=== PATIENT | female | born 1950 | race Caucasian/White ===

== ENCOUNTER 2016-09-27 08:16 | Outpatient (RCR) | payer MEDICARE ==
--- OUTSIDE RECORDS SUMMARY | 2016-07-02 10:24 | XMS REPORT | Continuity of Care Document ---
Author Author [facility] Organization [facility] Address Unknown Phone Unavailable Care Team Providers Care Clinical Research Coordinator Name Role Phone MINOR IBARRA DO PCP Insurance Providers Payer Name Policy Number Subscriber Name Relationship Wps Medicare [id number] Maribel Go 18 Self / Same As Patient Blue Cross Mcr Supp [id number] Maribel Go 18 Self / Same As Patient Advance Directives Directive Response Recorded Date/Time Advance Directives No 06/12/16 8:04am Health Care Power of Art Gallery Director No 06/12/16 8:04am Organ Donor No 06/12/16 8:04am Resuscitation Status Full Code 06/12/16 8:04am Chief Complaint and Reason for Visit Chief Complaint LEFT KNEE OA Reason for Visit medication allergy Problems Active Problems Medical Problem Onset Date Status Acute renal failure syndrome Unknown Acute LIMITATION OF ACTIVITIES DUE TO DISABILITY Unknown Acute Leukopenia Unknown Acute medication allergy Unknown Acute Medications Current Home Medications Medication Dose Units Route Directions Days/Qty Instructions Start Date Lisinopril/Hydrochlorothiazide 1 Each 0.5 Tab Oral Daily 06/05/16 Oxybutynin Chloride 10 Mg 10 Mg Oral Daily And Prn as needed for Bladder Control 06/05/16 Doxazosin Mesylate 8 Mg 8 Mg Oral Daily 06/05/16 Rosuvastatin Calcium 10 Mg 10 Mg Oral Daily 06/05/16 Furosemide 40 Mg 40 Mg Oral As Needed 06/05/16 Potassium Chloride 10 Meq 10 Meq Oral As Needed 06/05/16 Lactobacillus Rhamnosus Gg 1 Each 1 Each Oral Daily 06/05/16 Docusate Sodium 100 Mg 100 Mg Oral Daily 06/05/16 Fluticasone/Salmeterol 1 Each 1 Puff Inhalation As Needed 06/05/16 Pedi Mv No.79/Ferrous Fumarate 18 Mg 18 Mg Oral Daily 06/05/16 Diphenhydramine Hcl 25 Mg 25 Mg Oral Daily And Prn 06/05/16 Albuterol Sulfate 8.5 Gm 2 Puff Inhalation Four Times Daily as needed for Shortness Of Breath 06/12/16 Phenytoin Sodium Extended 100 Mg 300 Mg Oral Bedtime TAKES 3 (100 MG) CAPSULES 06/12/16 Oxycodone Hcl/Acetaminophen 1 Each 1 Each Oral Every 4HRS 50 06/16/16 Ondansetron 4 Mg 4 Mg Oral As Directed as needed for Nausea/Vomiting 0 06/16/16 Past Home Medications Medication Directions Ordered Status Etodolac 400 Mg Tab, 400 Mg Oral Twice A Day 11/07/10 Discontinued Acetaminophen/Diphenhydramine 1 Each Tablet, 2 Tab Oral Bedtime 11/07/10 Discontinued Cholecalciferol 1,000 Unit Capsule, 1000 U Oral Daily 11/07/10 Discontinued Gfihaqnh-Bboygnw-Vsps 149-Hyal 1 Each Tablet, 1 Each Oral Twice A Day Discontinued Prednisone 10 Mg Tab, 10 Mg Oral Twice A Day 11/07/10 Discontinued Rosuvastatin Calcium 10 Mg Tablet, 1 Each Oral Daily 09/12/11 Discontinued Metoprolol Tartrate (Lopressor) 25 Mg Tablet, 1 Tab Oral Twice A Day Discontinued Doxazosin Mesylate 4 Mg Tablet, 4 Mg Oral Bedtime 09/12/11 Discontinued Aspirin 81 Mg Chew, 81 Mg Oral Daily 09/12/11 Discontinued Multivit,Ther Iron,Ca,Fa & Min 1 Each Tablet, 1 Each Oral Daily 09/12/11 Discontinued Calcium Carbonate/Vitamin D3 1 Each Tablet, 1 Each Oral Twice A Day 09/12/11 Discontinued Sennosides/Docusate Sodium 1 Each Tablet, 1 Each Oral Daily 09/12/11 Discontinued Furosemide (Lasix) 40 Mg Tablet, 1 Each Oral As Needed 09/12/11 Discontinued Potassium Chloride (Micro K) 10 Meq Capsule.sa, 1 Each Oral As Needed Discontinued Prednisone 20 Mg Tab, 20 Mg Oral Twice A Day 04/25/13 Discontinued Famotidine (Pepcid) 20 Mg Tablet, 1 Each Oral Twice A Day 08/08/13 Discontinued Prednisone 20 Mg Tab, 20 Mg Oral Daily 08/08/13 Discontinued Phenytoin Sodium Extended 100 Mg Capsule, 300 Mg Oral Bedtime 06/05/16 Discontinued Albuterol Sulfate 18 Gm Hfa.aer.ad, 1-2 Puff Inhalation As Needed 06/05/16 Discontinued Oxycodone Hcl/Acetaminophen 1 Each Tablet, 1 Each Oral Every 4HRS 06/12/16 Discontinued Albuterol Sulfate 8.5 Gm Hfa.aer.ad, 2 Puff Inhalation Four Times Daily as needed for Shortness Of Breath 06/12/16 Discontinued Social History Social History Problem Response Recorded Date/Time Alcohol Use Rarely Uses 08/08/2013 9:00pm Recreational Drug Use No 08/08/2013 9:00pm Recent Foreign Travel No 08/08/2013 9:00pm Recent Infectious Disease Exposure No 08/08/2013 9:00pm Hospitalization with Isolation Denies 08/08/2013 9:00pm Sexually Transmitted Disease No 06/12/2016 8:00am HIV/AIDS No 06/12/2016 8:00am Smoking Status Former Smoker 06/12/2016 8:04am Type Used Cigarettes 06/16/2016 12:40pm Recent Hopitalizations No 06/12/2016 8:00am Sexually Transmitted Disease No 06/12/2016 8:00am Hospitalization with Isolation Denies 08/08/2013 9:00pm Query Response Start Date Stop Date Smoking Status Former Smoker Hospital Discharge Instructions No hospital discharge instructions. Plan of Care Discharge Date 06/16/16 12:25pm Disposition 06 HOME HEALTH SERVICE Instructions/Education Provided Postop Total Knee Replacement Exercises Lying Down Forms Provided Follow-Up Fax Prescriptions See Medication Section Referrals (Unspecified) - Today Reason(s) for Referral: LIMITATION OF ACTIVITIES DUE TO DISABILITY HENRIK TORRES MD (Unspecified) - Address: [address] [place] [address] [phone] Reason(s) for Referral: FOLLOW UP WITH DR TORRES IN 3 WEEKS. Functional Status Query Response Date Recorded Patient Orientation Normal For Age June 16, 2016 11:19am Patient Orientation Person Place Time Situation Eyes Open June 16, 2016 12:40pm Comprehension Ability Understands Concepts June 13, 2016 8:10am Allergies, Adverse Reactions, Alerts Allergen Type Severity Reaction Status Last Updated tolmetin sodium Allergy Unknown Active 06/05/16 naproxen sodium Allergy Mild SORES IN MOUTH AND NOSE Active 06/05/16 misoprostol ([id number]) Allergy Mild GI UPSET Active 06/05/16 hydrocodone ([id number]) Allergy Mild GI UPSET Active 06/05/16 Benzonatate Allergy Intermediate RASH Active 08/08/13 indomethacin ([id number]) Allergy Mild Active 06/05/16 sulfamethoxazole ([id number]) Allergy Severe BREATHING Active 06/05/16 Trimethoprim Allergy Severe BREATHING Active 06/05/16 diclofenac ([id number]) Allergy Mild GI UPSET Active 06/05/16 tolmetin ([id number]) Allergy Severe Active 06/05/16 phenazopyridine ([id number]) Allergy Severe GI UPSET Active 06/05/16 DARVOCET Allergy Unknown Active 06/05/16 Immunizations No immunization records. Vital Signs Acute Vital Signs Vital Response Date/Time Temperature (Fahrenheit) 98.1 degrees F (97.6 - 99.5) 06/16/2016 8:29am Temperature (Calculated Celsius) 36.03757 degrees C (36.4 - 37.5) 06/16/2016 8:29am Temperature Source Tympanic 06/16/2016 8:29am Pulse Rate (adult) 94 bpm (60 - 90) 06/16/2016 8:29am Respiratory Rate 20 bpm (12 - 24) 06/16/2016 8:29am O2 Sat by Pulse Oximetry 96 % (88 - 100) 06/16/2016 8:29am Blood Pressure 147/64 mm Hg 06/16/2016 8:29am Blood Pressure Mean 91 mm Hg 06/16/2016 8:29am Pain Numeric Pain Scale 3 06/16/2016 12:25pm Height (Feet) 5 feet 06/12/2016 7:58am Height (Inches) 1.00 inches 06/12/2016 7:58am Height (Calculated Centimeters) 154.827263 cm 06/12/2016 7:58am Weight (Pounds) 212 pounds 06/12/2016 7:58am Weight (Ounces) 5.0 oz 06/12/2016 7:58am Weight (Calculated Grams) 95354.33 gm 06/12/2016 7:58am Weight (Calculated Kilograms) 96.059401 kilograms 06/12/2016 7:58am Calculated BMI 40.1 06/12/2016 7:58am Results Laboratory Results Test Name Result Units Flags Reference Collection Date/Time Result Date/ Time Comments White Blood Count 4.1 10^3/uL L 4.3-11.0 06/16/2016 5:51am 06/16/2016 6: 04am White Blood Count 6.5 X 10^3 4.3-11.0 06/12/2016 10:20am 06/12/2016 10: 47am Red Blood Count 3.01 10^6/uL L 4.35-5.85 06/16/2016 5:51am 06/16/2016 6: 04am Hemoglobin 8.8 G/DL #L 11.5-16.0 06/16/2016 5:51am 06/16/2016 6:04am Hematocrit 26 % L 35-52 06/16/2016 5:51am 06/16/2016 6:04am Mean Corpuscular Volume 86 FL 80-99 06/16/2016 5:51am 06/16/2016 6: 04am Mean Corpuscular Hemoglobin 29 PG 25-34 06/16/2016 5:51am 06/16/2016 6: 04am Mean Corpuscular Hemoglobin Concent 34 G/DL 32-36 06/16/2016 5:51am 6:04am Red Cell Distribution Width 13.1 % 10.0-14.5 06/16/2016 5:51am 2015 6:04am Platelet Count 90 10^3/uL L 130-400 06/16/2016 5:51am 06/16/2016 6:04am Mean Platelet Volume 10.1 FL 7.4-10.4 06/16/2016 5:51am 06/16/2016 6: 04am Neutrophils (%) (Auto) 70 % 42-75 06/16/2016 5:51am 06/16/2016 6:04am Lymphocytes (%) (Auto) 15 % 12-44 06/16/2016 5:51am 06/16/2016 6:04am Monocytes (%) (Auto) 12 % 0-12 06/16/2016 5:51am 06/16/2016 6:04am Eosinophils (%) (Auto) 2 % 0-10 06/16/2016 5:51am 06/16/2016 6:04am Basophils (%) (Auto) 0 % 0-10 06/16/2016 5:51am 06/16/2016 6:04am Neutrophils # (Auto) 2.8 X 10^3 1.8-7.8 06/16/2016 5:51am 06/16/2016 6: 04am Lymphocytes # (Auto) 0.6 X 10^3 L 1.0-4.0 06/16/2016 5:51am 06/16/2016 6: 04am Monocytes # (Auto) 0.5 X 10^3 0.0-1.0 06/16/2016 5:51am 06/16/2016 6: 04am Eosinophils # (Auto) 0.1 10^3/uL 0.0-0.3 06/16/2016 5:51am 06/16/2016 6 :04am Basophils # (Auto) 0.0 10^3/uL 0.0-0.1 06/16/2016 5:51am 06/16/2016 6: 04am Urine Color YELLOW 06/14/2016 6:25pm 06/14/2016 8:40pm Urine Clarity CLEAR 06/14/2016 6:25pm 06/14/2016 8:40pm Urine pH 6 5-9 06/14/2016 6:25pm 06/14/2016 8:40pm Urine Specific [place] 1.015 * 1.016-1.022 06/14/2016 6:25pm 2015 8:40pm Urine Protein 2+ * NEGATIVE 06/14/2016 6:25pm 06/14/2016 8:40pm Urine Glucose (UA) NEGATIVE NEGATIVE 06/14/2016 6:25pm 06/14/2016 8: 40pm Urine RBC (Auto) 3+ * NEGATIVE 06/14/2016 6:25pm 06/14/2016 8:40pm Urine Ketones NEGATIVE NEGATIVE 06/14/2016 6:25pm 06/14/2016 8:40pm Urine Nitrite POSITIVE * NEGATIVE 06/14/2016 6:25pm 06/14/2016 8:40pm Urine Bilirubin NEGATIVE NEGATIVE 06/14/2016 6:25pm 06/14/2016 8: 40pm Urine Urobilinogen NORMAL MG/DL NORMAL 06/14/2016 6:25pm 06/14/2016 8: 40pm Urine Leukocyte Esterase 1+ * NEGATIVE 06/14/2016 6:25pm 06/14/2016 8: 40pm Urine RBC 0-2 /HPF 06/14/2016 6:25pm 06/14/2016 8:40pm Urine WBC 5-10 /HPF * 06/14/2016 6:25pm 06/14/2016 8:40pm Urine Bacteria FEW /HPF * 06/14/2016 6:25pm 06/14/2016 8:40pm Urine Squamous Epithelial Cells 10-25 /HPF * 06/14/2016 6:25pm 2015 8:40pm Urine Crystals NONE /LPF 06/14/2016 6:25pm 06/14/2016 8:40pm Urine Casts NONE /LPF 06/14/2016 6:25pm 06/14/2016 8:40pm Urine Mucus SMALL /LPF * 06/14/2016 6:25pm 06/14/2016 8:40pm Urine Culture Indicated YES 06/14/2016 6:25pm 06/14/2016 8:40pm Sodium Level 137 MMOL/L 135-145 06/16/2016 5:51am 06/16/2016 6:30am Potassium Level 4.0 MMOL/L 3.6-5.0 06/16/2016 5:51am 06/16/2016 6:30am Chloride Level 107 MMOL/L 98-107 06/16/2016 5:51am 06/16/2016 6:30am Carbon Dioxide Level 21 MMOL/L 21-32 06/16/2016 5:51am 06/16/2016 6: 30am Anion Gap 9 MMOL/L 5-14 06/16/2016 5:51am 06/16/2016 6:30am Blood Urea Nitrogen 14 MG/DL 7-18 06/16/2016 5:51am 06/16/2016 6:30am Creatinine 0.75 MG/DL 0.60-1.30 06/16/2016 5:51am 06/16/2016 6:30am BUN/Creatinine Ratio 19 06/16/2016 5:51am 06/16/2016 6:30am Estimat Glomerular Filtration Rate > 60 06/16/2016 5:51am 2015 6:30am GFR INTERPRETIVE DATA UNITS FOR ESTIMATED GFR (eGFR): mL/min/1.73 M2 REFERENCE RANGE FOR ESTIMATED GFR (eGFR) eGFR NORMAL eGFR >60 MODERATELY DECREASED eGFR 30-59 SEVERLY DECREASED eGFR 15-29 KIDNEY FAILURE <15 (OR DIALYSIS) Glucose Level 110 MG/DL H 70-105 06/16/2016 5:51am 06/16/2016 6:30am Calcium Level 8.3 MG/DL L 8.5-10.1 06/16/2016 5:51am 06/16/2016 6:30am Total Bilirubin 0.6 MG/DL 0.1-1.0 06/16/2016 5:51am 06/16/2016 6:30am Alkaline Phosphatase 102 U/L 40-136 06/16/2016 5:51am 06/16/2016 6: 30am Aspartate Amino Transf (AST/SGOT) 30 U/L 5-34 06/16/2016 5:51am 2015 6:30am Alanine Aminotransferase (ALT/SGPT) 15 U/L 0-55 06/16/2016 5:51am 06/16 6:30am Total Protein 5.5 G/DL L 6.4-8.2 06/16/2016 5:51am 06/16/2016 6:30am Albumin 3.2 G/DL 3.2-4.5 06/16/2016 5:51am 06/16/2016 6:30am Iron Level 50 ug/dL 35-180 06/13/2016 4:52am 06/14/2016 7:29am Test performed at [facility], CLIA# [id number] [address] [place] [address] Pending Laboratory Results Test Name Collection Date/Time Microbiology Results Procedure Source Result Collection Date/Time Result Date/Time Blood Culture Peripheral, Rt Ac No growth 06/14/2016 7:05pm 06/15/2016 2: 30pm Blood Culture Peripheral, Lt Hand No growth 06/14/2016 7:05pm 06/15/2016 2: 30pm Urine Culture Urine, Clean Catch STAPHCARLOTAG NEG (UNDERWRITER) 06/14/2016 6:25pm 7:41am Pending Microbiology Results Procedure Source Collection Date/Time Procedures Procedure Status Date Provider(s) Total replacement of knee joint Completed 06/12/16 ZAFUTA,HENRIK P MD Tracing only of electrocardiogram Completed 06/05/16 HENRIK TORRES MD Encounters Encounter Location Arrival/Admit Date Discharge/Depart Date Attending Provider Discharged Inpatient [facility] 06/12/16 5:55am 12:25pm HENRIK TORRES MD Departed Clinic [facility] 06/05/16 1:24pm 06/05/16 2: 00pm HENRIK TORRES MD Recent Diagnosis medication allergy
[~2016-09-27 08:16] MED LIST: ACET-2151 PO; ASP81CT PO; CALC-80 PO; CHOL100011 PO; CLN.1T PO; DIPH25TA49 PO; DOCU-238 PO; DOXA4TAB2 PO; DOXA8TAB73 PO; ETD400T PO; FAMO20TA5 PO; FLUT1DIS26 IH; FURO-124 PO; FURO40TA4 PO; GLUC1TAB60 PO; LACT1CAP39 PO; LISI1TAB8 PO; METO25TA2 PO; MULT-1009 PO; ONDA4TAB8 PO; OXYB10TA PO; OXYC-197 PO; PEDI18TA2 PO; PHEN100C11 PO; PHEN100C4 PO; POTA10CA43 PO; POTA10TA10 PO; PRD10T PO; PRD20T PO; ROSU10TA PO; ROSU10TA12 PO; RT-ALBUINH IH; SENN-75 PO; VALS1TAB12 PO
== END 2016-09-30 | disposition home or self-care (01) ==
PROVIDERS: ATTEND Orthopaedic Surgery
DX: Z47.1 Aftercare following joint replacement surgery (principal); Z96.652 Presence of left artificial knee joint

== ENCOUNTER 2016-10-17 05:36 | Outpatient (CLI) | payer MEDICARE ==
[~2016-10-17] VITALS: Ht 154.9 cm; Wt 96.3 kg
== END 2016-10-17 11:17 ==
LOC: PREOP 05:36
PROVIDERS: ATTEND Orthopaedic Surgery
DX: Z01.818 Encounter for other preprocedural examination (principal); M76.892 Other specified enthesopathies of left lower limb, excluding foot

== ENCOUNTER 2016-10-23 06:29 | Day surgery (SDC) | payer MEDICARE ==
--- NOTE | 2016-10-21 08:10 | HISTORY AND PHYSICAL ---
DATE OF ADMISSION: 10/23/2016 DICTATING PHYSICIAN: DR. Comer This will be for outpatient surgery for left knee manipulation under anesthesia. HISTORY: The patient is a 66-year-old female who underwent left total knee arthroplasty a little over 4 months ago. She has plateaued on her motion and reports stiffness and pain in her knee. Because of failure to improve with extensive physical therapy, the patient elected to proceed with manipulation under anesthesia. REVIEW OF SYSTEMS: No chest pain, no shortness of breath. No dysuria. PAST MEDICAL HISTORY: 1. Bronchitis. 2. Hypertension. 3. Urinary tract infection. 4. Seizure disorder. 5. B12 deficiency. 6. Anemia. 7. Left horseshoe kidney. PAST SURGERIES: 1. Hysterectomy. 2. Aortic valve. 3. Tubal ligation. 4. Total knee arthroplasty. 5. Left shoulder. 6. Left breast biopsy. 7. Left kidney stent placement. 8. Left total knee arthroplasty. FAMILY HISTORY: Significant for diabetes lupus, ischemic heart disease. PRIMARY CARE PROVIDER: Dr. Lora MEDICATIONS: 1. Stool softener. 2. Potassium. 3. Lasix. 4. Crestor. 5. Doxazosin. 6. Lisinopril. 7. Phenytoin. 8. Pro- air. 9. Advair. 10. Promethazine. 11. Hydrocodone. 12. Levaquin. 13. Tylenol. ALLERGIES: 1. Phenazopyridine 2. Benzonatate 3. Phongopyred 4. Tolectin 5. Anaprox. 6. Hydrocodone 7. Indomethacin 8. Arthrotec SOCIAL HISTORY: The patient is a former smoker. Denies alcohol use. PHYSICAL EXAMINATION: The patient's well-developed, well-nourished, in no acute distress. HEENT: Normocephalic, atraumatic. Pupils are equal, round, and reactive light, oropharynx is clear. NECK: Supple. No lymphadenopathy. LUNGS: Clear to auscultation bilaterally. HEART: Regular rate and rhythm. ABDOMEN: Soft, nontender, nondistended. EXTREMITY EXAM: The left knee demonstrates no effusion. There is no erythema or warmth. Range of motion 0/5/90. Her patella tracks well. 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 PLAN: Left knee manipulation under anesthesia. The risks, benefits, options, ramifications and recovery were discussed at length with the patient and she understands and wishes to proceed. Job ID: [id number] Dictated Date: 10/14/2016 12:13:00 Conference Services Manager Date: 10/15/2016 08:11:18/[email or web address]
[~2016-10-23] VITALS: Ht 154.9 cm; Wt 96.3 kg
[2016-10-23 07:10] VITALS: BP 138/84
[2016-10-23] MEDS ORDERED: proPOfol 200 MG/20 ML (DIPRIVAN) VIAL IV ONE ×3 (07:12→08:14)
[2016-10-23] MEDS ORDERED: SUCCINYLCHOLINE INJ 100 MG/5 ML SYR ONE (07:12)
[2016-10-23] MEDS ORDERED: fentaNYL INJECTION 100 MCG/2 ML AMP ONE (07:12)
[2016-10-23] MEDS ORDERED: MIDAZOLAM 2 MG/2 ML (VERSED) VIAL ONE (07:12)
[2016-10-23] MEDS ORDERED: LACTATED RINGERS 1,000 ML IV PRN (07:25)
--- NOTE | 2016-10-23 07:29 | Progress Note-Pre Operative ---
Pre-Operative Progress Note H&P Reviewed The H&P was reviewed, patient examined and no changes noted. Date H&P Reviewed: Oct 23, 2016 Time H&P Reviewed: 07:11 Pre-Operative Diagnosis: left knee adhesive capsulitis HENRIK TORRES MD Oct 23, 2016 07:29
[2016-10-23] MEDS ORDERED: oxyCODONE/APAP 5/325MG (PERCOCET 5) TABLET PO PRN (07:30)
--- NOTE | 2016-10-23 07:30 | Progress Note-Post Operative ---
Post-Operative Progess Note Surgeon (s)/Oyster Shucker (s) Surgeon HENRIK TORRES MD Oyster Shucker: Lorenzo Simmons Pre-Operative Diagnosis left knee adhesive capsulitis Post-Operative Diagnosis left knee adhesive capsulitis Post-Op Procedure Note Date of Procedure: Oct 23, 2016 Name of Procedure Performed: left knee manipulation under anesthesia Description of the Procedure: manipulated left knee Findings of the Procedure improved ROM Anesthesia Type GETA Estimated blood loss (mL): none Packing: none Specimen(s) collected/removed none HENRIK TORRES MD Oct 23, 2016 07:30
[2016-10-23] MEDS ORDERED: LACTATED RINGERS 1,000 ML IV ONE (08:14)
[2016-10-23] MEDS ORDERED: SEVOFLURANE (ULTANE) 15 ML INHAL SOLN ONE (08:34)
[2016-10-23] MEDS ORDERED: ONDANSETRON 4 MG/2 ML (SDV) Z0FRAN ONE (08:35)
[2016-10-23] MEDS ORDERED: fentaNYL INJECTION 100 MCG/2 ML AMP IVP PRN (08:45)
[2016-10-23] MEDS ORDERED: MEPERIDINE (DEMEROL) INJ 50 MG/ML IVP PRN (08:45)
[2016-10-23 09:30] VITALS: BP 129/77
[2016-10-23 10:00] VITALS: BP 132/74
[2016-10-23] MEDS ORDERED: OXYC-471 PO (10:02)
--- NOTE | 2016-10-24 09:56 | OPERATIVE REPORT ---
PROCEDURE PHYSICIAN: HENRIK TORRES DATE OF PROCEDURE: 10/23/2016 PREOPERATIVE DIAGNOSIS: Left knee adhesions status post total knee arthroplasty. POSTOPERATIVE DIAGNOSIS: Left knee adhesions status post total knee arthroplasty. PROCEDURE: Left knee manipulation under anesthesia. SURGEON: Souleymane ROLL UP HELPER: Lorenzo Simmons who assisted throughout the procedure. ANESTHESIA: Monitored anesthesia care by Dr. Hernandez TOURNIQUET TIME: Was not applicable. ESTIMATED BLOOD LOSS: Not applicable. DRAINS: None. COMPLICATIONS: None. POSTOPERATIVE PLAN: Early range of motion. The patient was transported to the recovery room, awake, and in stable condition. STATEMENT OF MEDICAL NECESSITY: The patient is a 66-year-old female who several months ago underwent a left total knee arthroplasty. She had plateaued in her range of motion and had failed to improve with extensive therapy and therefore, elected to proceed with manipulation. Examination under anesthesia revealed range of motion of 0/8/80 pre- manipulation. PROCEDURE: After risks and benefits of the procedure were discussed and questions were answered an informed consent was signed and placed on chart. The operative site was confirmed in the preoperative holding area and initialed by the surgeon. The patient was then transported to the operating room where after adequate levels of monitored anesthesia care was obtained, manipulation was carefully performed. The knee was brought into flexion and gently flexed until the patient had attained 120 degrees of flexion. The patient was then brought out into extension and gentle force was applied until the knee lacked approximately 2 degrees to full extension. Her final range of motion was approximately 0/2/120. Her patellar mobility was improved as well. The patient was transported to the recovery room, awake, in stable condition. Job ID: [id number] Dictated Date: 10/23/2016 08:44:32 Corn Sheller Operator Date: 10/24/2016 09:49:48 / wilma
--- OUTSIDE RECORDS SUMMARY | 2016-11-10 05:46 | XMS REPORT | Continuity of Care Document ---
Author Author [facility] Organization [facility] Address Unknown Phone Unavailable Care Team Providers Care Pipe Covering Molder Name Role Phone FREDMINOR DO PP Insurance Providers Payer Name Policy Number Subscriber Name Relationship [facility] [id number] [place] 01 Self / Same As Patient [facility] Self Insurance Fund [id number] [facility] 08 Employer Advance Directives Directive Response Recorded Date Advance Directives N 04/25/13 11:02pm Health Care Power of Nurseryperson N 09/12/11 10:13am Organ Donor N 04/25/13 11:02pm Problems No Known Problems or Medical conditions. Family History History Response Recorded Date/Time Hx Family Cancer Y maternal grandmother 11/07/10 2:04am Hx Family Cardiac Disorders N 11/07/10 2: 04am Social History History Response Recorded Date/Time Alcohol Use Rarely Uses 04/25/13 11:02pm Recreational Drug Use N 04/25/13 11:02pm Recent Foreign Travel N 04/25/13 11:02pm Recent Infectious Disease Exposure N 11:02pm Hospitalization with Isolation Denies 11:02pm Sexually Transmitted Disease N 04/25/13 11:02pm HIV/AIDS N 04/25/13 11:02pm Allergies, Adverse Reactions, Alerts Allergen Type Severity Reaction Last Updated Tolmetin Sodium Allergy 11/07/10 naproxen sodium Allergy 11/07/10 Hydrocodone Allergy 11/07/10 DARVOCET Allergy 11/07/10 Medications Medication Dose Units Route Sig Qty Days Prednisone 20 Mg PO BID 4 Potassium Chloride (Potassium Chloride 10 Meq Cap) 1 Each PO PRN 1 Furosemide 1 Each PO PRN 1 Sennosides/Docusate Sodium (Stool Softener Tablet) 1 Each PO DAILY 1 Calcium Carbonate/Vitamin D3 (Calcium 600 + D Caplet) 1 Each PO BID 1 Multivit,Ther Iron,Ca,Fa & Min (Thera M Plus Tablet) 1 Each PO DAILY 1 Aspirin (Aspirin 81 Mg Chew Tab) 81 Mg PO DAILY 1 Doxazosin Mesylate 4 Mg PO HS 1 Metoprolol Tartrate (Metoprolol Tartrate 25 Mg) 1 Tab PO BID Rosuvastatin Calcium (Crestor) 1 Each PO DAILY 1 Jphpowmr-Tmrzvnv-Iuvg 149-Hyal (Glucosamine Chondroitin Tablet) 1 Each PO BID Cholecalciferol (Vitamin D3) 1000 U PO DAILY Acetaminophen/Diphenhydramine (Tylenol Pm (Non-Formulary)) 2 Tab PO HS Etodolac (Lodine) 400 Mg PO BID Immunizations Name Given Type Date of Influenza Vaccine 04/16/11 H Response Recorded Date/Time Status not known Unknown Results No Known Relevant Diagnostic Tests, Laboratory Data and/or Discharge Summary. Encounters Encounter Location Date/Time Departed Emergency Room [facility] 10:42pm Discharged Inpatient [facility] 1:30am
--- OUTSIDE RECORDS SUMMARY | 2016-11-10 05:46 | XMS REPORT | Continuity of Care Document ---
Author Author [facility] Organization [facility] Address Unknown Phone Unavailable Allergies Active Description Code Type Severity Reaction Onset Reported/Identified Relationship to Patient Clinical Status Yes hydrocodone [id number] Drug Allergy Unknown N/A 11/07/2010 Yes naproxen sodium [id number] Drug Allergy Unknown N/A 11/07/2010 Yes benzonatate [id number] Drug Allergy Moderate RASH 08/08/2013 Yes phenazopyridine [id number] Drug Allergy Severe GI UPSET 06/05/2016 Yes sulfamethoxazole [id number] Drug Allergy Severe BREATHING 06/05/2016 Yes tolmetin [id number] Drug Allergy Severe N/A 06/05/2016 Yes trimethoprim [id number] Drug Allergy Severe BREATHING 06/05/2016 Yes diclofenac [id number] Drug Allergy Mild GI UPSET 06/05/2016 Yes hydrocodone [id number] Drug Allergy Mild GI UPSET 06/05/2016 Yes indomethacin [id number] Drug Allergy Mild N/A 06/05/2016 Yes misoprostol [id number] Drug Allergy Mild GI UPSET 06/05/2016 Yes naproxen sodium [id number] Drug Allergy Mild SORES IN MOUTH 06/05/2016 Yes DARVOCET DARVOCET Unknown N/A 06/05/2016 Yes tolmetin sodium [id number] Drug Allergy Unknown N/A 06/05/2016 Medications Problems Date Dx Coded Attending Type Code Diagnosis Diagnosed By 06/05/2016 HENRIK TORRES MD Ot Z01.812 ENCOUNTER FOR PREPROCEDURAL LABORATORY E 06/05/2016 HENRIK TORRES MD, Ot Z01.812 ENCOUNTER FOR PREPROCEDURAL LABORATORY E 06/05/2016 HENIRK TORRES MD, Ot M17.9 OSTEOARTHRITIS OF KNEE, UNSPECIFIED 06/05/2016 HENRIK TORRES MD Ot R53.83 OTHER FATIGUE 06/05/2016 HENRIK TORRES MD, Ot Z01.810 ENCOUNTER FOR PREPROCEDURAL CARDIOVASCUL 06/05/2016 HENRIK TORRES MD Ot Z01.811 ENCOUNTER FOR PREPROCEDURAL RESPIRATORY 06/05/2016 HENRIK TORRES MD Ot Z01.812 ENCOUNTER FOR PREPROCEDURAL LABORATORY E 06/05/2016 HENRIK TORRES MD Ot Z11.2 ENCOUNTER FOR SCREENING FOR OTHER BACTER 06/06/2016 HENRIK TORRES MD Ot M17.9 OSTEOARTHRITIS OF KNEE, UNSPECIFIED 06/06/2016 HENRIK TORRES MD Ot R53.83 OTHER FATIGUE 06/06/2016 HENRIK TORRES MD Ot Z01.810 ENCOUNTER FOR PREPROCEDURAL CARDIOVASCUL 06/06/2016 HENRIK TORRES MD Ot Z01.811 ENCOUNTER FOR PREPROCEDURAL RESPIRATORY 06/06/2016 HENRIK TORRES MD Ot Z01.812 ENCOUNTER FOR PREPROCEDURAL LABORATORY E 06/06/2016 HENRIK TORRES MD Ot Z11.2 ENCOUNTER FOR SCREENING FOR OTHER BACTER 06/16/2016 HENRIK TORRES MD Ot D62 ACUTE POSTHEMORRHAGIC ANEMIA 06/16/2016 HENRIK TORRES MD Ot D69.3 IMMUNE THROMBOCYTOPENIC PURPURA 06/16/2016 HENRIK TORRES MD Ot G40.909 EPILEPSY, UNSP, NOT INTRACTABLE, WITHOUT 06/16/2016 HENRIK TORRES MD Ot I10 ESSENTIAL (PRIMARY) HYPERTENSION 06/16/2016 HENRIK TORRES MD Ot M17.12 UNILATERAL PRIMARY OSTEOARTHRITIS, LEFT 06/16/2016 HENRIK TORRES MD Ot Q63.1 LOBULATED, FUSED AND HORSESHOE KIDNEY 06/16/2016 HENRIK TORRES MD Ot R01.1 CARDIAC MURMUR, UNSPECIFIED 06/16/2016 HENRIK TORRES MD Ot R50.9 FEVER, UNSPECIFIED 06/16/2016 HENRIK TORRES MD Ot R60.0 LOCALIZED EDEMA 06/16/2016 HENRIK TORRES MD Ot Z87.891 PERSONAL HISTORY OF NICOTINE DEPENDENCE 06/16/2016 HENRIK TORRES MD Ot Z95.2 PRESENCE OF PROSTHETIC HEART VALVE 09/11/2016 HENRIK TORRES MD Ot Z47.1 AFTERCARE FOLLOWING JOINT REPLACEMENT COLLINS 09/11/2016 HENRIK TORRES MD Ot Z96.652 PRESENCE OF LEFT ARTIFICIAL KNEE JOINT 09/19/2016 HENRIK TORRES MD Ot Z47.1 AFTERCARE FOLLOWING JOINT REPLACEMENT COLLINS 09/19/2016 HENRIK TORRES MD Ot Z96.652 PRESENCE OF LEFT ARTIFICIAL KNEE JOINT 09/30/2016 HENRIK TORRES MD Ot Z47.1 AFTERCARE FOLLOWING JOINT REPLACEMENT COLLINS 09/30/2016 HENRIK TORRES MD Ot Z96.652 PRESENCE OF LEFT ARTIFICIAL KNEE JOINT 10/01/2016 HENRIK TORRES MD Ot Z47.1 AFTERCARE FOLLOWING JOINT REPLACEMENT COLLINS 10/01/2016 HENRIK TORRES MD Ot Z96.652 PRESENCE OF LEFT ARTIFICIAL KNEE JOINT 10/17/2016 HENRIK TORRES MD Ot M76.892 OTH ENTHESOPATHIES OF LEFT LOWER LIMB, E 10/17/2016 HENRIK TORRES MD Ot Z01.818 ENCOUNTER FOR OTHER PREPROCEDURAL EXAMIN 10/23/2016 HENRIK TORRES MD Ot M76.892 OTH ENTHESOPATHIES OF LEFT LOWER LIMB, E 10/23/2016 HENRIK TORRES MD Ot Z01.818 ENCOUNTER FOR OTHER PREPROCEDURAL EXAMIN 10/24/2016 HENRIK TORRES MD Ot G40.909 EPILEPSY, UNSP, NOT INTRACTABLE, WITHOUT 10/24/2016 HENRIK TORRES MD Ot I10 ESSENTIAL (PRIMARY) HYPERTENSION 10/24/2016 HENRIK TORRES MD Ot M23.8X2 OTHER INTERNAL DERANGEMENTS OF LEFT KNEE 10/24/2016 HENRIK TORRES MD Ot Z11.2 ENCOUNTER FOR SCREENING FOR OTHER BACTER 10/24/2016 HENRIK TORRES MD Ot Z79.899 OTHER PRISON (CURRENT) DRUG THERAPY 10/24/2016 HENRIK TORRES MD Ot Z87.891 PERSONAL HISTORY OF NICOTINE DEPENDENCE 10/24/2016 HENRIK TORRES MD Ot Z95.2 PRESENCE OF PROSTHETIC HEART VALVE 10/24/2016 HENRIK TORRES MD Ot Z96.652 PRESENCE OF LEFT ARTIFICIAL KNEE JOINT 10/24/2016 HENRIK TORRES MD Ot G40.909 EPILEPSY, UNSP, NOT INTRACTABLE, WITHOUT 10/24/2016 HENRIK TORRES MD Ot I10 ESSENTIAL (PRIMARY) HYPERTENSION 10/24/2016 HENRIK TORRES MD, Ot M23.8X2 OTHER INTERNAL DERANGEMENTS OF LEFT KNEE 10/24/2016 HENRIK TORRES MD, Ot Z11.2 ENCOUNTER FOR SCREENING FOR OTHER BACTER 10/24/2016 HENRIK TORRES MD, Ot Z79.899 OTHER PRISON (CURRENT) DRUG THERAPY 10/24/2016 HENRIK TORRES MD, Ot Z87.891 PERSONAL HISTORY OF NICOTINE DEPENDENCE 10/24/2016 HENRIK TORRES MD, Ot Z95.2 PRESENCE OF PROSTHETIC HEART VALVE 10/24/2016 HENRIK TORRES MD, Ot Z96.652 PRESENCE OF LEFT ARTIFICIAL KNEE JOINT 10/31/2016 HENRIK TORRES MD, Ot Z47.1 AFTERCARE FOLLOWING JOINT REPLACEMENT COLLINS 10/31/2016 HENRIK TORRES MD, Ot Z96.652 PRESENCE OF LEFT ARTIFICIAL KNEE JOINT Procedures Code Description Performed By Performed On [id number] REPLACE OF L KNEE JT WITH SYNTH SUB, BUZZ 06/12/2016 Results Test Result Range Methicillin resistant Staphylococcus aureus (MRSA) screening culture - 14:00 Methicillin resistant Staphylococcus aureus (MRSA) screening culture NEG NRG Comprehensive metabolic panel - 06/05/16 14:10 Serum or plasma sodium measurement (moles/volume) 140 mmol/ L 135-145 Serum or plasma potassium measurement (moles/volume) 4.5 mmol/L 3.6-5.0 Serum or plasma chloride measurement (moles/volume) 105 mmol /L 98-107 Carbon dioxide 27 mmol/L 21-32 Serum or plasma anion gap determination (moles/volume) 8 mmol/L 5-14 Serum or plasma urea nitrogen measurement (mass/volume) 19 mg/dL 7-18 Serum or plasma creatinine measurement (mass/volume) 0.80 mg /dL 0.60-1.30 Serum or plasma urea nitrogen/creatinine mass ratio 24 NRG Serum or plasma creatinine measurement with calculation of estimated glomerular filtration rate > NRG Serum or plasma glucose measurement (mass/volume) 98 mg/dL 70-105 Serum or plasma calcium measurement (mass/volume) 9.4 mg/dL 8.5-10.1 Serum or plasma total bilirubin measurement (mass/volume) 0.3 mg/dL 0.1-1.0 Serum or plasma alkaline phosphatase measurement (enzymatic activity/volume) 147 U/L 40-136 Serum or plasma aspartate aminotransferase measurement (enzymatic activity/ volume) 18 U/L 5-34 Serum or plasma alanine aminotransferase measurement (enzymatic activity/volume ) 20 U/L 0-55 Serum or plasma protein measurement (mass/volume) 7.4 g/dL 6.4-8.2 Serum or plasma albumin measurement (mass/volume) 4.5 g/dL 3.2-4.5 Complete blood count (CBC) with automated white blood cell (WBC) differential - 06/05/16 14:10 Blood leukocytes automated count (number/volume) 3.6 10*3/ uL 4.3-11.0 Blood erythrocytes automated count (number/volume) 4.52 10*6 /uL 4.35-5.85 Venous blood hemoglobin measurement (mass/volume) 13.5 g/dL 11.5-16.0 Blood hematocrit (volume fraction) 39 % 35-52 Automated erythrocyte mean corpuscular volume 86 [foz_us] 80-99 Automated erythrocyte mean corpuscular hemoglobin (mass per erythrocyte) 30 pg 25-34 Automated erythrocyte mean corpuscular hemoglobin concentration measurement ( mass/volume) 35 g/dL 32-36 Automated erythrocyte distribution width ratio 12.4 % 10.0-14.5 Automated blood platelet count (count/volume) 109 10*3/uL 130-400 Automated blood platelet mean volume measurement 10.0 [foz_ us] 7.4-10.4 Automated blood neutrophils/100 leukocytes 62 % 42-75 Automated blood lymphocytes/100 leukocytes 27 % 12-44 Blood monocytes/100 leukocytes 10 % 0-12 Automated blood eosinophils/100 leukocytes 1 % 0-10 Automated blood basophils/100 leukocytes 0 % 0-10 Blood neutrophils automated count (number/volume) 2.2 10*3 1.8-7.8 Blood lymphocytes automated count (number/volume) 1.0 10*3 1.0-4.0 Blood monocytes automated count (number/volume) 0.4 10*3 0.0-1.0 Automated eosinophil count 0.1 10*3/uL 0.0-0.3 Automated blood basophil count (count/volume) 0.0 10*3/uL 0.0-0.1 PT panel in platelet poor plasma by coagulation assay - 06/05/16 14:10 Prothrombin time (PT) in platelet poor plasma by coagulation assay 12.2 s 12.2-14.7 INR in platelet poor plasma or blood by coagulation assay 0.9 0.8-1.4 Erythrocyte sedimentation rate by westergren method - 06/05/16 14:10 Erythrocyte sedimentation rate by westergren method 3 mm 0-30 Blood type T Indirect antibody screen panel - 06/05/16 14:10 ABO+Rh group ON NRG Blood group antibody screen NEGATIVE NRG Complete urinalysis with reflex to culture - 06/05/16 14:15 Urine color determination YELLOW NRG Urine clarity determination CLEAR NRG Urine pH measurement by test strip 7 5- 9 Specific gravity of urine by test strip 1.010 1.016-1.022 Urine protein assay by test strip, semi-quantitative NEGATIVE NEGATIVE Urine glucose detection by automated test strip NEGATIVE NEGATIVE Erythrocytes detection in urine sediment by light microscopy 2+ NEGATIVE Urine ketones detection by automated test strip NEGATIVE NEGATIVE Urine nitrite detection by test strip NEGATIVE NEGATIVE Urine total bilirubin detection by test strip NEGATIVE NEGATIVE Urine urobilinogen measurement by automated test strip (mass/volume) NORMAL NORMAL Urine leukocyte esterase detection by dipstick 2+ NEGATIVE Automated urine sediment erythrocyte count by microscopy (number/high power field) NONE NRG Automated urine sediment leukocyte count by microscopy (number/high power field ) [HPF] NRG Bacteria detection in urine sediment by light microscopy TRACE NRG Squamous epithelial cells detection in urine sediment by light microscopy 5-10 NRG Crystals detection in urine sediment by light microscopy NONE NRG Casts detection in urine sediment by light microscopy NONE NRG Mucus detection in urine sediment by light microscopy NEGATIVE NRG Complete urinalysis with reflex to culture NO NRG Automated blood complete blood count (hemogram) panel - 06/12/16 06:27 Blood leukocytes automated count (number/volume) 3.1 10*3/ uL 4.3-11.0 Blood erythrocytes automated count (number/volume) 4.24 10*6 /uL 4.35-5.85 Venous blood hemoglobin measurement (mass/volume) 12.7 g/dL 11.5-16.0 Blood hematocrit (volume fraction) 37 % 35-52 Automated erythrocyte mean corpuscular volume 86 [foz_us] 80-99 Automated erythrocyte mean corpuscular hemoglobin (mass per erythrocyte) 30 pg 25-34 Automated erythrocyte mean corpuscular hemoglobin concentration measurement ( mass/volume) 35 g/dL 32-36 Automated erythrocyte distribution width ratio 12.4 % 10.0-14.5 Automated blood platelet count (count/volume) 86 10*3/uL 130-400 Automated blood platelet mean volume measurement 9.7 [foz_us ] 7.4-10.4 PLATELET PHERESIS LR - 06/12/16 06:27 PLATELET PHERESIS LR TRANSFUSED 06/12/16 0905 NR Blood type T Indirect antibody screen panel - 06/12/16 06:27 ABO+Rh group ON NRG Transfusion band number [id number] NRG Blood group antibody screen NEGATIVE NRG Automated blood platelet count (count/volume) - 06/12/16 08:35 Automated blood platelet count (count/volume) 93 10*3/uL 130-400 Blood leukocytes automated count (number/volume) - 06/12/16 10:20 Blood leukocytes automated count (number/volume) 6.5 10*3 4.3-11.0 TRANSFUSION REACTION BB TESTS - 06/12/16 10:20 TRANSFUSION RX BLOOD COMPONENT B POS PLTPH LR NRG [id number] NRG [id number] OK NRG [id number] NORMAL NRG Bacterial blood culture NOT INDICATED NRG Serum ragweed IgE antibody assay INCREASED NRG Patient symptomsSpost transfusion reaction ITCHING NRG AppearanceSpost transfusion reaction NEGATIVE NRG Appearance NEGATIVE NRG Direct antiglobulin test.poly specific reagentSpos NEGATIVE NRG Direct antiglobulin test.poly specific reagent NOT INDICATED NRG Direct antiglobulin test.IgG specific reagent NOT INDICATED NRG Direct antiglobulin test.complement C3 specific re NOT INDICATED NRG Transfusion reaction SCANNED TO EMR NRG Complete blood count (CBC) with automated white blood cell (WBC) differential - 06/13/16 04:52 Blood leukocytes automated count (number/volume) 5.2 10*3/ uL 4.3-11.0 Blood erythrocytes automated count (number/volume) 3.30 10*6 /uL 4.35-5.85 Venous blood hemoglobin measurement (mass/volume) 9.9 g/dL 11.5-16.0 Blood hematocrit (volume fraction) 30 % 35-52 Automated erythrocyte mean corpuscular volume 89 [foz_us] 80-99 Automated erythrocyte mean corpuscular hemoglobin (mass per erythrocyte) 30 pg 25-34 Automated erythrocyte mean corpuscular hemoglobin concentration measurement ( mass/volume) 34 g/dL 32-36 Automated erythrocyte distribution width ratio 12.4 % 10.0-14.5 Automated blood platelet count (count/volume) 101 10*3/uL 130-400 Automated blood platelet mean volume measurement 9.8 [foz_us ] 7.4-10.4 Automated blood neutrophils/100 leukocytes 73 % 42-75 Automated blood lymphocytes/100 leukocytes 18 % 12-44 Blood monocytes/100 leukocytes 9 % 0-12 Automated blood eosinophils/100 leukocytes 1 % 0-10 Automated blood basophils/100 leukocytes 0 % 0-10 Blood neutrophils automated count (number/volume) 3.8 10*3 1.8-7.8 Blood lymphocytes automated count (number/volume) 0.9 10*3 1.0-4.0 Blood monocytes automated count (number/volume) 0.5 10*3 0.0-1.0 Automated eosinophil count 0.0 10*3/uL 0.0-0.3 Automated blood basophil count (count/volume) 0.0 10*3/uL 0.0-0.1 Comprehensive metabolic panel - 06/13/16 04:52 Serum or plasma sodium measurement (moles/volume) 140 mmol/ L 135-145 Serum or plasma potassium measurement (moles/volume) 4.4 mmol/L 3.6-5.0 Serum or plasma chloride measurement (moles/volume) 109 mmol /L 98-107 Carbon dioxide 26 mmol/L 21-32 Serum or plasma anion gap determination (moles/volume) 5 mmol/L 5-14 Serum or plasma urea nitrogen measurement (mass/volume) 15 mg/dL 7-18 Serum or plasma creatinine measurement (mass/volume) 0.78 mg /dL 0.60-1.30 Serum or plasma urea nitrogen/creatinine mass ratio 19 NRG Serum or plasma creatinine measurement with calculation of estimated glomerular filtration rate > NRG Serum or plasma glucose measurement (mass/volume) 121 mg/dL 70-105 Serum or plasma calcium measurement (mass/volume) 8.0 mg/dL 8.5-10.1 Serum or plasma total bilirubin measurement (mass/volume) 0.4 mg/dL 0.1-1.0 Serum or plasma alkaline phosphatase measurement (enzymatic activity/volume) 118 U/L 40-136 Serum or plasma aspartate aminotransferase measurement (enzymatic activity/ volume) 15 U/L 5-34 Serum or plasma alanine aminotransferase measurement (enzymatic activity/volume ) 11 U/L 0-55 Serum or plasma protein measurement (mass/volume) 5.9 g/dL 6.4-8.2 Serum or plasma albumin measurement (mass/volume) 3.9 g/dL 3.2-4.5 IRON TEST - 06/13/16 04:52 Serum or plasma iron measurement (mass/volume) 50 % 35-180 Complete blood count (CBC) with automated white blood cell (WBC) differential - 06/14/16 05:02 Blood leukocytes automated count (number/volume) 3.7 10*3/ uL 4.3-11.0 Blood erythrocytes automated count (number/volume) 2.79 10*6 /uL 4.35-5.85 Venous blood hemoglobin measurement (mass/volume) 8.4 g/dL 11.5-16.0 Blood hematocrit (volume fraction) 25 % 35-52 Automated erythrocyte mean corpuscular volume 90 [foz_us] 80-99 Automated erythrocyte mean corpuscular hemoglobin (mass per erythrocyte) 30 pg 25-34 Automated erythrocyte mean corpuscular hemoglobin concentration measurement ( mass/volume) 34 g/dL 32-36 Automated erythrocyte distribution width ratio 12.2 % 10.0-14.5 Automated blood platelet count (count/volume) 78 10*3/uL 130-400 Automated blood platelet mean volume measurement 10.0 [foz_ us] 7.4-10.4 Automated blood neutrophils/100 leukocytes 67 % 42-75 Automated blood lymphocytes/100 leukocytes 17 % 12-44 Blood monocytes/100 leukocytes 14 % 0-12 Automated blood eosinophils/100 leukocytes 2 % 0-10 Automated blood basophils/100 leukocytes 0 % 0-10 Blood neutrophils automated count (number/volume) 2.5 10*3 1.8-7.8 Blood lymphocytes automated count (number/volume) 0.6 10*3 1.0-4.0 Blood monocytes automated count (number/volume) 0.5 10*3 0.0-1.0 Automated eosinophil count 0.1 10*3/uL 0.0-0.3 Automated blood basophil count (count/volume) 0.0 10*3/uL 0.0-0.1 Comprehensive metabolic panel - 06/14/16 05:02 Serum or plasma sodium measurement (moles/volume) 138 mmol/ L 135-145 Serum or plasma potassium measurement (moles/volume) 4.2 mmol/L 3.6-5.0 Serum or plasma chloride measurement (moles/volume) 106 mmol /L 98-107 Carbon dioxide 24 mmol/L 21-32 Serum or plasma anion gap determination (moles/volume) 8 mmol/L 5-14 Serum or plasma urea nitrogen measurement (mass/volume) 8 mg /dL 7-18 Serum or plasma creatinine measurement (mass/volume) 0.69 mg /dL 0.60-1.30 Serum or plasma urea nitrogen/creatinine mass ratio 12 NRG Serum or plasma creatinine measurement with calculation of estimated glomerular filtration rate > NRG Serum or plasma glucose measurement (mass/volume) 105 mg/dL 70-105 Serum or plasma calcium measurement (mass/volume) 8.3 mg/dL 8.5-10.1 Serum or plasma total bilirubin measurement (mass/volume) 0.4 mg/dL 0.1-1.0 Serum or plasma alkaline phosphatase measurement (enzymatic activity/volume) 104 U/L 40-136 Serum or plasma aspartate aminotransferase measurement (enzymatic activity/ volume) 16 U/L 5-34 Serum or plasma alanine aminotransferase measurement (enzymatic activity/volume ) 9 U/L 0-55 Serum or plasma protein measurement (mass/volume) 5.6 g/dL 6.4-8.2 Serum or plasma albumin measurement (mass/volume) 3.4 g/dL 3.2-4.5 Complete urinalysis with reflex to culture - 06/14/16 18:25 Urine color determination YELLOW NRG Urine clarity determination CLEAR NRG Urine pH measurement by test strip 6 5- 9 Specific gravity of urine by test strip 1.015 1.016-1.022 Urine protein assay by test strip, semi-quantitative 2+ NEGATIVE Urine glucose detection by automated test strip NEGATIVE NEGATIVE Erythrocytes detection in urine sediment by light microscopy 3+ NEGATIVE Urine ketones detection by automated test strip NEGATIVE NEGATIVE Urine nitrite detection by test strip POSITIVE NEGATIVE Urine total bilirubin detection by test strip NEGATIVE NEGATIVE Urine urobilinogen measurement by automated test strip (mass/volume) NORMAL NORMAL Urine leukocyte esterase detection by dipstick 1+ NEGATIVE Automated urine sediment erythrocyte count by microscopy (number/high power field) [HPF] NRG Automated urine sediment leukocyte count by microscopy (number/high power field ) [HPF] NRG Bacteria detection in urine sediment by light microscopy FEW NRG Squamous epithelial cells detection in urine sediment by light microscopy 10-25 NRG Crystals detection in urine sediment by light microscopy NONE NRG Casts detection in urine sediment by light microscopy NONE NRG Mucus detection in urine sediment by light microscopy SMALL NRG Complete urinalysis with reflex to culture YES NRG Bacterial urine culture - 06/14/16 18:25 Bacterial urine culture [id number] NRG COLONY COUNT >100,000/ML NRG FTX;REPORTABLE SENSITIVITY REPORTED AT 0743, 08-17-15 NRG Bacterial susceptibility panel - 06/14/16 18:25 Oxacillin susceptibility test by minimum inhibitory concentration >= NRG Gentamicin susceptibility test by minimum inhibitory concentration <= NRG Trimethoprim/sulfamethoxazole susceptibility test by minimum inhibitoryconcentration <= NRG Vancomycin susceptibility test by minimum inhibitory concentration <= NRG Levofloxacin susceptibility test by minimum inhibitory concentration >= NRG Rifampin susceptibility test by minimum inhibitory concentration <= NRG Tetracycline susceptibility test by minimum inhibitory concentration <= NRG Ciprofloxacin susceptibility test by minimum inhibitory concentration R NRG Bacterial blood culture - 06/14/16 19:05 Bacterial blood culture NG NRG Bacterial blood culture - 06/14/16 19:05 Bacterial blood culture NG NRG Complete blood count (CBC) with automated white blood cell (WBC) differential - 06/15/16 06:05 Blood leukocytes automated count (number/volume) 3.9 10*3/ uL 4.3-11.0 Blood erythrocytes automated count (number/volume) 2.33 10*6 /uL 4.35-5.85 Venous blood hemoglobin measurement (mass/volume) 6.9 g/dL 11.5-16.0 Blood hematocrit (volume fraction) 21 % 35-52 Automated erythrocyte mean corpuscular volume 88 [foz_us] 80-99 Automated erythrocyte mean corpuscular hemoglobin (mass per erythrocyte) 30 pg 25-34 Automated erythrocyte mean corpuscular hemoglobin concentration measurement ( mass/volume) 34 g/dL 32-36 Automated erythrocyte distribution width ratio 12.1 % 10.0-14.5 Automated blood platelet count (count/volume) 77 10*3/uL 130-400 Automated blood platelet mean volume measurement 10.3 [foz_ us] 7.4-10.4 Automated blood neutrophils/100 leukocytes 70 % 42-75 Automated blood lymphocytes/100 leukocytes 19 % 12-44 Blood monocytes/100 leukocytes 11 % 0-12 Automated blood eosinophils/100 leukocytes 1 % 0-10 Automated blood basophils/100 leukocytes 0 % 0-10 Blood neutrophils automated count (number/volume) 2.7 10*3 1.8-7.8 Blood lymphocytes automated count (number/volume) 0.7 10*3 1.0-4.0 Blood monocytes automated count (number/volume) 0.4 10*3 0.0-1.0 Automated eosinophil count 0.0 10*3/uL 0.0-0.3 Automated blood basophil count (count/volume) 0.0 10*3/uL 0.0-0.1 Comprehensive metabolic panel - 06/15/16 06:05 Serum or plasma sodium measurement (moles/volume) 136 mmol/ L 135-145 Serum or plasma potassium measurement (moles/volume) 3.8 mmol/L 3.6-5.0 Serum or plasma chloride measurement (moles/volume) 105 mmol /L 98-107 Carbon dioxide 23 mmol/L 21-32 Serum or plasma anion gap determination (moles/volume) 8 mmol/L 5-14 Serum or plasma urea nitrogen measurement (mass/volume) 14 mg/dL 7-18 Serum or plasma creatinine measurement (mass/volume) 0.77 mg /dL 0.60-1.30 Serum or plasma urea nitrogen/creatinine mass ratio 18 NRG Serum or plasma creatinine measurement with calculation of estimated glomerular filtration rate > NRG Serum or plasma glucose measurement (mass/volume) 103 mg/dL 70-105 Serum or plasma calcium measurement (mass/volume) 7.9 mg/dL 8.5-10.1 Serum or plasma total bilirubin measurement (mass/volume) 0.4 mg/dL 0.1-1.0 Serum or plasma alkaline phosphatase measurement (enzymatic activity/volume) 84 U/L 40-136 Serum or plasma aspartate aminotransferase measurement (enzymatic activity/ volume) 22 U/L 5-34 Serum or plasma alanine aminotransferase measurement (enzymatic activity/volume ) 9 U/L 0-55 Serum or plasma protein measurement (mass/volume) 5.2 g/dL 6.4-8.2 Serum or plasma albumin measurement (mass/volume) 3.1 g/dL 3.2-4.5 RED CELLS LEUKO REDUCED AS1 - 06/15/16 06:09 RED CELLS LEUKO REDUCED AS1 TRANSFUSED 1520 NRG Blood type T Indirect antibody screen panel - 06/15/16 06:09 ABO+Rh group ON NRG Transfusion band number [id number] [facility] Blood group antibody screen NEGATIVE [facility] Complete blood count (CBC) with automated white blood cell (WBC) differential - 06/16/16 05:51 Blood leukocytes automated count (number/volume) 4.1 10*3/ uL 4.3-11.0 Blood erythrocytes automated count (number/volume) 3.01 10*6 /uL 4.35-5.85 Venous blood hemoglobin measurement (mass/volume) 8.8 g/dL 11.5-16.0 Blood hematocrit (volume fraction) 26 % 35-52 Automated erythrocyte mean corpuscular volume 86 [foz_us] 80-99 Automated erythrocyte mean corpuscular hemoglobin (mass per erythrocyte) 29 pg 25-34 Automated erythrocyte mean corpuscular hemoglobin concentration measurement ( mass/volume) 34 g/dL 32-36 Automated erythrocyte distribution width ratio 13.1 % 10.0-14.5 Automated blood platelet count (count/volume) 90 10*3/uL 130-400 Automated blood platelet mean volume measurement 10.1 [foz_ us] 7.4-10.4 Automated blood neutrophils/100 leukocytes 70 % 42-75 Automated blood lymphocytes/100 leukocytes 15 % 12-44 Blood monocytes/100 leukocytes 12 % 0-12 Automated blood eosinophils/100 leukocytes 2 % 0-10 Automated blood basophils/100 leukocytes 0 % 0-10 Blood neutrophils automated count (number/volume) 2.8 10*3 1.8-7.8 Blood lymphocytes automated count (number/volume) 0.6 10*3 1.0-4.0 Blood monocytes automated count (number/volume) 0.5 10*3 0.0-1.0 Automated eosinophil count 0.1 10*3/uL 0.0-0.3 Automated blood basophil count (count/volume) 0.0 10*3/uL 0.0-0.1 Comprehensive metabolic panel - 06/16/16 05:51 Serum or plasma sodium measurement (moles/volume) 137 mmol/ L 135-145 Serum or plasma potassium measurement (moles/volume) 4.0 mmol/L 3.6-5.0 Serum or plasma chloride measurement (moles/volume) 107 mmol /L 98-107 Carbon dioxide 21 mmol/L 21-32 Serum or plasma anion gap determination (moles/volume) 9 mmol/L 5-14 Serum or plasma urea nitrogen measurement (mass/volume) 14 mg/dL 7-18 Serum or plasma creatinine measurement (mass/volume) 0.75 mg /dL 0.60-1.30 Serum or plasma urea nitrogen/creatinine mass ratio 19 NRG Serum or plasma creatinine measurement with calculation of estimated glomerular filtration rate > NRG Serum or plasma glucose measurement (mass/volume) 110 mg/dL 70-105 Serum or plasma calcium measurement (mass/volume) 8.3 mg/dL 8.5-10.1 Serum or plasma total bilirubin measurement (mass/volume) 0.6 mg/dL 0.1-1.0 Serum or plasma alkaline phosphatase measurement (enzymatic activity/volume) 102 U/L 40-136 Serum or plasma aspartate aminotransferase measurement (enzymatic activity/ volume) 30 U/L 5-34 Serum or plasma alanine aminotransferase measurement (enzymatic activity/volume ) 15 U/L 0-55 Serum or plasma protein measurement (mass/volume) 5.5 g/dL 6.4-8.2 Serum or plasma albumin measurement (mass/volume) 3.2 g/dL 3.2-4.5 Methicillin resistant Staphylococcus aureus (MRSA) screening culture - 07:20 Methicillin resistant Staphylococcus aureus (MRSA) screening culture NEG NRG Encounters ACCT No. Visit Date/Time Discharge Status Pt. Type Provider Facility Loc./Unit Complaint [id number] 10/23/2016 06:29:00 2016 10:23:00 DIS Outpatient HENRIK TORRES MD [facility] SDC LEFT KNEE ADHESIONS CAPSULE [id number] 10/17/2016 05:36:00 2016 11:17:00 DIS Outpatient HENRIK TORRES MD [facility] PREOP LEFT KNEE ADHESIONS CAPSULE [id number] 09/27/2016 08:16:00 2016 00:01:00 DIS Outpatient HENRIK TORRES MD [facility] REHAB S/P L TKR [id number] 06/12/2016 05:55:00 2015 12:25:00 DIS Inpatient HENRIK TORRES MD [facility] 4TH LEFT KNEE OA [id number] 06/05/2016 13:24:00 2015 14:00:00 DIS Outpatient MELISSA KELLER, HENRIK Amaya [facility] PREOP LEFT KNEE OA [id number] 08/08/2013 20:55:00 2013 23:05:00 DIS Emergency [id number] 04/25/2013 22:42:00 2012 23:30:00 DIS Emergency [id number] 11/01/2016 14:35:00 ACT Outpatient HENRIK TORRES MD [facility] REHAB S/P L TKR
== END 2016-10-23 10:23 | disposition home or self-care (01) ==
LOC: DELPENDDIS → SDC 06:29
PROVIDERS: ATTEND Orthopaedic Surgery
DX: M23.8X2 Other internal derangements of left knee (principal); Z96.652 Presence of left artificial knee joint; I10 Essential (primary) hypertension; G40.909 Epilepsy, unspecified, not intractable, without status epilepticus; Z95.2 Presence of prosthetic heart valve; Z79.899 Other long term (current) drug therapy; Z87.891 Personal history of nicotine dependence; Z11.2 Encounter for screening for other bacterial diseases
CPT/HCPCS: 87081

== ENCOUNTER 2016-11-04 08:07 | Outpatient (RCR) | payer MEDICARE ==
--- OUTSIDE RECORDS SUMMARY | 2016-10-01 08:09 | XMS REPORT | Continuity of Care Document ---
Author Author [facility] Organization [facility] Address Unknown Phone Unavailable Care Team Providers Care Child Center Assistant Name Role Phone MINOR IBARRA DO PCP Insurance Providers Payer Name Policy Number Subscriber Name Relationship Wps Medicare [id number] Maribel Go 18 Self / Same As Patient Blue Cross Mcr Supp [id number] Maribel Go 18 Self / Same As Patient Advance Directives Directive Response Recorded Date/Time Advance Directives No 06/12/16 8:04am Health Care Power of Souvenir Assembler No 06/12/16 8:04am Organ Donor No 06/12/16 [...] Capsule, 1000 U Oral Daily 11/07/10 Discontinued Ihqhqtrw-Bulasao-Teln 149-Hyal 1 Each Tablet, 1 Each Oral [...] TORRES MD (Unspecified) - Address: [address] [place] [phone] Reason(s) for Referral: FOLLOW UP WITH DR [...] IN MOUTH AND NOSE Active 06/05/16 misoprostol ([id number]) Allergy Mild GI UPSET Active 06/05/16 hydrocodone ([id number]) Allergy Mild GI UPSET Active 06/05/16 Benzonatate Allergy Intermediate RASH Active 08/08/13 indomethacin ([id number]) Allergy Mild Active 06/05/16 sulfamethoxazole ([id number]) Allergy Severe BREATHING Active 06/05/16 Trimethoprim Allergy Severe BREATHING Active 06/05/16 diclofenac ([id number]) Allergy Mild GI UPSET Active 06/05/16 tolmetin ([id number]) Allergy Severe Active 06/05/16 phenazopyridine ([id number]) Allergy Severe GI UPSET Active 06/05/16 DARVOCET Allergy Unknown Active 06/05/16 Immunizations No immunization records. Vital Signs Acute Vital Signs Vital Response Date/Time Temperature (Fahrenheit) 98.1 degrees F (97.6 - 99.5) 06/16/2016 8:29am Temperature (Calculated Celsius) 36.90968 degrees C (36.4 - 37.5) 06/16/2016 8:29am [...] 1.00 inches 06/12/2016 7:58am Height (Calculated Centimeters) 154.259285 cm 06/12/2016 7:58am Weight (Pounds) 212 pounds 06/12/2016 7:58am Weight (Ounces) 5.0 oz 06/12/2016 7:58am Weight (Calculated Grams) 60395.33 gm 06/12/2016 7:58am Weight (Calculated Kilograms) 96.752528 kilograms 06/12/2016 7:58am Calculated BMI 40.1 06/12/2016 [...] 5-9 06/14/2016 6:25pm 06/14/2016 8:40pm Urine Specific [place] 1.015 * 1.016-1.022 06/14/2016 6:25pm 2015 8:40pm [...] 4:52am 06/14/2016 7:29am Test performed at [facility], CLIA# [id number] [address] [place] [address] Pending Laboratory Results Test Name Collection Date/Time Microbiology Results Procedure Source Result Collection Date/Time Result Date/Time Blood Culture Peripheral, Rt Ac No growth 06/14/2016 7:05pm 06/15/2016 2: 30pm Blood Culture Peripheral, Lt Hand No growth 06/14/2016 7:05pm 06/15/2016 2: 30pm Urine Culture Urine, Clean Catch STAPHCARLOTAG NEG (WIRELESS SALES EXPERT) 06/14/2016 6:25pm 7:41am Pending Microbiology Results Procedure Source Collection Date/Time Procedures Procedure Status Date Provider(s) Total replacement of knee joint Completed 06/12/16 ZAFUTA,HENRIK P MD Tracing only of electrocardiogram Completed 06/05/16 HENRIK TORRES MD Encounters Encounter Location Arrival/Admit Date Discharge/Depart Date Attending Provider Discharged Inpatient [facility] 06/12/16 5:55am 12:25pm HENRIK TORRES MD Departed Clinic [facility] 06/05/16 1:24pm 06/05/16 2: 00pm HENRIK TORRES MD Recent Diagnosis medication allergy
[~2016-11-04 08:07] MED LIST changes: +OXYC-471 PO
== END 2016-12-30 | disposition home or self-care (01) ==
PROVIDERS: ATTEND Orthopaedic Surgery
DX: Z47.1 Aftercare following joint replacement surgery (principal); Z96.652 Presence of left artificial knee joint

== ENCOUNTER 2017-07-12 14:52 | Emergency (ER) | payer MEDICARE ==
[~2017-07-12] VITALS: Ht 154.9 cm; Wt 88.1 kg
[~2017-07-12 14:52] MED LIST changes: +ACET-2422 PO; +ROSU10TA24 PO; +SULF-222 PO; +VITA1CAP PO
--- OUTSIDE RECORDS SUMMARY | 2017-07-12 15:00 | XMS REPORT | Clinical Summary ---
Author Author [facility] Organization [facility] Address Unknown Phone Unavailable Care Team Providers Care Academic Registrar Name Role Phone PCP Unavailable Source Comments Some departments are not documenting in the electronic medical record. If you do not see the information that you expected, contact Release of Information in the Health Information Management department at [phone] for further assistance in locating additional records.[facility] Allergies Active Allergy Reactions Severity Noted Date Comments Benzonatate ANAPHYLAXIS, RASH High 05/19/2017 Sulfa (Sulfonamide ANAPHYLAXIS, HIVES High 07/05/2017 Antibiotics) Sulfamethoxazole-Trimetho SHORTNESS OF BREATH, Medium 05/19/2017 prim STOMACH UPSET Naproxen Sodium SEE COMMENTS Low 05/19/2017 "sores in mouth & nose" Diclofenac-Misoprostol STOMACH UPSET Low 05/19/2017 Propoxyphene STOMACH UPSET Low 05/19/2017 N-Acetaminophen Diclofenac STOMACH UPSET Low 05/19/2017 Hydrocodone STOMACH UPSET Low 05/19/2017 Indomethacin STOMACH UPSET Low 05/19/2017 Nitrofurantoin STOMACH UPSET Low 05/19/2017 Monohyd/M-Cryst Misoprostol STOMACH UPSET Low 05/19/2017 Oxycodone STOMACH UPSET Low 05/19/2017 Tolmetin SEE COMMENTS Low 05/19/2017 "affected kidneys" Trimethoprim STOMACH UPSET Low 05/19/2017 Current Medications Prescription Sig. Disp. Refills Start End Date Status Date lisinopril-hydrochlorothi Take 0.5 tablets by mouth Active azide (PRINZIDE, every morning. ZESTORETIC) 20-12.5 mg tablet doxazosin (CARDURA) 8 mg Take 8 mg by mouth at Active tablet bedtime daily. rosuvastatin (CRESTOR) 10 Take 10 mg by mouth at Active mg tablet bedtime daily. oxybutynin XL (DITROPAN Take 15 mg by mouth daily Active XL) 15 mg as needed. Indications: tabletIndications: INCREASED URINARY INCREASED URINARY FREQUENCY FREQUENCY furosemide (LASIX) 40 mg Take 40 mg by mouth daily Active tabletIndications: Edema as needed. Indications: Edema potassium chloride SR Take 20 mEq by mouth Active (K-DUR) 10 mEq tablet daily as needed. Take with a meal and a full glass of water. docusate (COLACE) 100 mg Take 100 mg by mouth Active capsule daily. vitamins, B complex tab Take 1 tablet by mouth Active daily. vitamins, multi PED Chew by mouth daily. Active chewable phenytoin SR (DILANTIN Take 400 mg by mouth at Active EXTENDED) 100 mg capsule bedtime daily. albuterol 0.5% Inhale 2.5 mg solution by Active (PROVENTIL; VENTOLIN) 2.5 nebulizer as directed mg/0.5 mL nebulizer every 6 hours as needed solution for Shortness of Breath or Wheezing. albuterol (VENTOLIN HFA) Inhale 1-2 puffs by mouth Active 90 mcg/actuation inhaler into the lungs every 6 hours as needed for Wheezing or Shortness of Breath. Shake well before use. fluticasone/salmeterol Inhale 1 puff by mouth Active (ADVAIR DISKUS) 250/50 into the lungs twice mcg inhalation disk daily as needed. lactobacillus rhamnosus Take 1 capsule by mouth Active GG (LACTOBACILLUS as directed daily. RHAMNOSUS (GG)) 15 billion cell cpSP capsule fluticasone (FLONASE) 50 Apply 1 spray to each Active mcg/actuation nasal spray nostril as directed daily. Shake bottle gently before using. cetirizine (ZYRTEC) 10 mg Take 10 mg by mouth every Active tablet morning. ferrous sulfate (FEOSOL, Take 325 mg by mouth Active FEROSUL) 325 mg (65 mg daily. Take on an empty iron) tablet stomach at least 1 hour before or 2 hours after food. acetaminophen (TYLENOL) Take 2 tablets by mouth 0 07/08/20 Active 500 mg tablet three times daily. Max of 17 4,000 mg of acetaminophen in 24 hours. oxyCODONE (ROXICODONE, Take 1-2 tablets by mouth 45 tablet 0 07/08/20 Active OXY-IR) 5 mg every 4 hours as needed 17 tabletIndications: PAIN Indications: PAIN Earliest Fill Date: 07/08/17 polyethylene glycol 3350 Take 17 g by mouth twice 238 g 5 07/08/20 Active (GLYCOLAX; MIRALAX) 17 daily. Indications: 17 gram/dose CONSTIPATION powderIndications: CONSTIPATION ondansetron (ZOFRAN ODT) Dissolve 1 tablet by 30 tablet 0 07/08/20 Active 8 mg rapid dissolve mouth every 8 hours as 17 tablet needed for Nausea or Vomiting. Place on tongue to disolve. oxyCODONE (ROXICODONE, Take 1-2 tablets by mouth 45 tablet 0 07/08/20 07/08/20 Discontin OXY-IR) 5 mg tablet every 4 hours as needed 17 17 ued for pain. ondansetron (ZOFRAN ODT) Dissolve 1 tablet by 30 tablet 0 07/08/20 07/08/20 Discontin 8 mg rapid dissolve mouth every 8 hours as 17 17 ued tablet needed for nausea or vomiting. Place on tongue to dissolve. 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 Request recent CT scan 12/2016 - note sent to [facility] Recommend current NM Renal Scan with Lasix-patient elects local facility CT images that she brought (most recent 11/2013) discs taken to Radiology to be imported Will need to arrange stent exchange local vs [facility]-patient elects local Urine C&S today-no antibiotics Cardiology clearance-from local senior operator Need letter from Manager Salt for surgical planning-local coal equipment operator Planning Open Nephrectomy of Left Moeity of the Horseshoe Kidney -July 04, 2017 Consent signed in office Panel 1 Surgeon Role Nakul Mccray MD Primary Procedure Laterality Anesthesia NEPHRECTOMY Open Nephrectomy of Left Moeity of the Horseshoe Kidney [62510 (CPT )] Left Defer to Anesthesia NEPHRECTOMY PARTIAL [64454 (CPT )] Left General Horseshoe kidney 05/19/2017 Encounters Date Type Specialty Care Team Description 07/08/2017 Pharmacy Visit 07/04/2017 Hospital Nakul Mccray MD Non-functioning kidney - Encounter 07/08/2017 07/04/2017 Procedure Pass 07/04/2017 Surgery Nakul Mccray MD OPEN NEPHRECTOMY OF LEFT MOIETY OF THE HORSESHOE KIDNEY 06/10/2017 PAC Office Anesthesiology Nakul Mccray MD Pre-op evaluation Visit (Primary Dx);Thrombocytopenia (HCC);Fatty liver disease, nonalcoholic;Encounter for blood typing 06/10/2017 Anesthesia Tessie Costa APRN Event 06/10/2017 Orders Only Tessie Costa APRN 05/28/2017 Documentation Urology Nakul Mccray MD 05/26/2017 Orders Only Urology Nakul Mccray MD 05/26/2017 Orders Only Urology Nakul Mccray MD 05/22/2017 Orders Only UrologNakul Cotto MD Infection, staphylococcal (Primary Dx) 05/21/2017 Ancillary Radiology Outpatient, Radiologist Diagnosis unknown Orders 05/20/2017 Prep for Diogenes Olmstead PA-C 05/19/2017 Hospital Lab Nakul Mccray MD Crossing vessel and Encounter stricture of ureter without hydronephrosis 05/19/2017 Office Visit Urology Nakul Mccray MD Obstruction of left ureteropelvic junction (UPJ);Horseshoe kidney 05/19/2017 Prep for Diogenes Olmstead PA-C from Last 3 Months Family History Medical History Relation Name Comments Diabetes Brother Hypertension Brother Hypertension Father Cancer Maternal Grandmother Diabetes Maternal Grandmother Hypertension Maternal Grandmother Anesthetic Complication Mother Bleeding Disorders Mother Cancer Mother Heart Attack Mother Heart Disease Mother Hypertension Mother Kidney Disease Mother Relation Name Status Comments Brother Father Maternal Grandmother Mother Social History Tobacco Use Types Packs/Day Years Used Date Former Smoker Cigarettes 2 15 Quit: 1987 Smokeless Tobacco: Never Used Alcohol Use Drinks/Week oz/Week Comments No 2-3 yearly Sex Assigned at Date Recorded Not on file Last Filed Vital Signs Vital Sign Reading Time Taken Blood Pressure 127/59 07/08/2017 10:44 AM LOCOMOTIVE OBSERVER Pulse 90 07/08/2017 11:02 AM LOCOMOTIVE OBSERVER Temperature 36.6 C (97.9 F) 07/08/2017 10:44 AM LOCOMOTIVE OBSERVER Respiratory Rate - - Oxygen Saturation 94% 07/08/2017 10:44 AM LOCOMOTIVE OBSERVER Inhaled Oxygen - - Concentration Weight 83.6 kg (184 lb 4.9 oz) 07/04/2017 10:01 AM LOCOMOTIVE OBSERVER Height 156.2 cm (5' 1.5") 07/04/2017 10:01 AM LOCOMOTIVE OBSERVER Body Mass Index 34.26 07/04/2017 10:01 AM LOCOMOTIVE OBSERVER Plan of Treatment Health Maintenance Due Date Last Done Comments HEPATITIS C SCREENING 1950 PHYSICAL (COMPREHENSIVE) 1958 EXAM PERTUSSIS VACCINE 1962 TETANUS VACCINE 01/02/1968 BREAST CANCER SCREENING 1991 COLORECTAL CANCER 2001 SCREENING SHINGLES VACCINE 2011 OSTEOPOROSIS SCREENING 01/02/2016 PREVNAR/PNEUMOVAX (#1) 01/02/2016 INFLUENZA VACCINE 02/25/2017 Implants Implanted Type Area Rolling Up Machine Operator Device Expiration Model / Identifier Date Serial / Lot Knee Procedures Procedure Name Priority Date/Time Associated Diagnosis Comments ANESTHESIA EPIDURAL BLOCK Routine 07/04/2017 Results for this 12:33 PM LOCOMOTIVE OBSERVER procedure are in the results section. OPEN NEPHRECTOMY OF LEFT 07/04/2017 Obstruction of left MOIETY OF THE HORSESHOE 11:05 AM LOCOMOTIVE OBSERVER ureteropelvic junction KIDNEY (UPJ) from Last 3 Months Results * CBC (07/08/2017 4:53 AM) Only the most recent of 7 results within the time period is included. Component Value Ref Range White Blood Cells 5.1 4.5 - 11.0 K/UL RBC 2.95 (L) 4.0 - 5.0 M/UL Hemoglobin 9.0 (L) 12.0 - 15.0 GM/DL Hematocrit 25.2 (L) 36 - 45 % MCV 85.3 80 - 100 FL MCH 30.5 26 - 34 PG MCHC 35.7 32.0 - 36.0 G/DL RDW 14.1 11 - 15 % Platelet Count 107 (L) 150 - 400 K/UL MPV 7.6 7 - 11 FL Specimen Performing Laboratory Blood MAIN LAB [address] [place] [address] * PHOSPHORUS (07/08/2017 4:53 AM) Only the most recent of 4 results within the time period is included. Component Value Ref Range Phosphorus 2.6 2.0 - 4.0 MG/DL Specimen Performing Laboratory Blood MAIN [facility] [address] [place] [address] * MAGNESIUM (07/08/2017 4:53 AM) Only the most recent of 4 results within the time period is included. Component Value Ref Range Magnesium 2.0 1.6 - 2.6 mg/dL Specimen Performing Laboratory Blood MAIN [facility] [address] [place] [address] * BASIC METABOLIC PANEL (07/08/2017 4:53 AM) Only the most recent of 4 results within the time period is included. Component Value Ref Range Sodium 142 137 - 147 MMOL/L Potassium 4.2 3.5 - 5.1 MMOL/L Chloride 107 98 - 110 MMOL/L CO2 29 21 - 30 MMOL/L Anion Gap 6 3 - 12 Glucose 105 (H) 70 - 100 MG/DL Blood Urea Nitrogen 7 7 - 25 MG/DL Creatinine 0.55 0.4 - 1.00 MG/DL Calcium 8.8 8.5 - 10.6 MG/DL eGFR Non >60 >60 mL/min Comment: The eGFR is not validated for use in drug dosing adjustments. Continue to use estimated creatinine clearance per dosing reference text. Please contact the Clinical Pharmacist for questions. eGFR >60 >60 mL/min Comment: The eGFR is not validated for use in drug dosing adjustments. Continue to use estimated creatinine clearance per dosing reference text. Please contact the Clinical Pharmacist for questions. Specimen Performing Laboratory [facility] [address] [place] [address] * SURGICAL PATHOLOGY (07/04/2017 2:17 PM) Component Value Ref Range PATHOLOGY REPORT [facility] [email or web address] Department of Pathology and Laboratory Medicine [address] [place] [address] Surgical Pathology Office: [phone] SURGICAL PATHOLOGY REPORT NAME: MARIBEL GO SURG PATH #: [id number] MR #: [id number] SPECIMEN CLASS: SR BILLING #: [id number] ALT ID #: LOCATION: [facility] DATE OF PROCEDURE: 07/04/2017 AGE: 67 SEX: F DATE RECEIVED: 07/04/2017 : 1950 TIME RECEIVED: 14:17 PHYSICIAN: NAKUL MCCRAY DATE OF REPORT: 07/07/2017 COPY TO: DATE OF PRINTIN07/07/2017 ################################################## ###################### Final Diagnosis: A. 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 - Renal Pelvis: Dilated, edematous with focal chronic inflammation. - Kidney Parenchyma: some areas are intact with normal-appearing glomeruli & tubules and minimal inflammation; other areas are severely atrophic with severe glomerulosclerosis, severe arteriolosclerosis and abundant chronic inflammation. Attestation: By this signature, I attest that I have personally formulated the final interpretation expressed in this report and that the above diagnosis is based upon my examination of the slides and/or other material indicated in this report. 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 She is having recurrent pain and infections despite a ureteral stent and presents for surgical removal of the left half of her horseshoe kidney. Gross Description: A. Fixative: Fresh Labeled: "left kidney" Weight: 357 grams Specimen Received: Nephrectomy specimen Specimen Measurement: 16.5 x 8.6 x 5.0 cm Kidney Measurement: 9.0 x 5.0 x 2.1 cm No tumor is grossly identified. The renal pelvis is dilated measuring 7.5 x 5.7 x 2.0 cm and the kidney parenchyma is atrophied. The lining of the renal pelvis pink-damian with areas of hemorrhage. No lesions are grossly identified. Uninvolved renal parenchyma: Twodot-damian and grainy Adrenal gland: No Lymph nodes identified: No Accounts Payable Assistant sections of the specimen are submitted as follows: A1 Vascular margins. A2 Ureteral margin (inked black) and additional ureteral resection directly adjacent to ureteral margin. A3 Accounts Payable Assistant sections of renal pelvis in relationship to renal parenchyma. A4 Accounts Payable Assistant section of renal pelvis in relationship to renal sinus fat and renal parenchyma. A5-A6 Accounts Payable Assistant sections of renal pelvis, three fragments per cassette. (sld) 07/04/2017 Specimen Performing Laboratory [facility] RESULTS * ANESTHESIA EPIDURAL BLOCK (07/04/2017 12:33 PM) Meggan Sweeney DO 07/04/2017 11:15 AM Anesthesia Procedure: Epidural Block EPIDURAL BLOCK Date/Time: 07/04/2017 11:14 AM Patient location: pre-op Reason for block: post-op pain management Preprocedure checklist performed: 2 patient identifiers, risks & benefits discussed, patient evaluated, timeout performed, consent obtained, patient being monitored, existing labs reviewed, no anticoagulant within risk period and sterile drape Sterile technique: - Proper hand washing - Cap, mask - Sterile gloves - Skin prep for antisepsis Epidural Procedure Patient position: sitting Prep: ChloraPrep Monitoring: BP, EKG and continuous pulse ox Approach: right paramedian Location: thoracic Level/Interspace: T9-10 Injection technique: TOMMY saline Procedures: landmark technique Local infiltration: 1% lidocaine injected locally Number of attempts: 3 Needle/epidural catheter: Needle type: Tuohy Needle gauge: 18 G Needle length: 3.5 in Needle insertion depth: 6 cm Catheter type: multi orifice Catheter size: 20 G Catheter at skin depth: 11 cm Procedure Outcome Events: negative test dose, no paresthesia and negative aspiration test Patient tolerance of procedure: patient tolerated the procedure well with no immediate complications Refer to nursing documentation for vitals and monitoring data during procedure. Performed by: SHAUNA SWEENEY Authorized by: MANUEL GALEANO * BLOOD BANK SAMPLE HOLD (07/04/2017 10:10 AM) Component Value Ref Range BB Sample hold IN LAB Specimen Performing Laboratory MAIN LAB [address] [place] [address] * TYPE & CROSSMATCH (07/03/2017 12:35 PM) Component Value Ref Range Units Ordered 4 Crossmatch Expires 07/06/2017 Record Check FOUND ABO/RH(D) O NEG Antibody Screen POS CONSISTENT WITH HISTORICAL ANTIBODY Unit Number [id number] Blood Component Type RBC,ADSOL,LEUKO REDUCED,1ST CONT. Unit Division 0 Status OF Unit REL FROM ALLOC Antigen Type (Units) E antigen NEG, Transfusion Status OK TO TRANSFUSE Crossmatch Result COMPATIBLE, GEL Unit Number [id number] Blood Component Type RBC,ADSOL,LEUKO REDUCED,2ND CONT. Unit Division 0 Status OF Unit REL FROM ALLOC Antigen Type (Units) E antigen NEG, Transfusion Status OK TO TRANSFUSE Crossmatch Result COMPATIBLE, GEL Unit Number [id number] Blood Component Type RBC,ADSOL,LEUKO REDUCED,2ND CONT. Unit Division 0 Status OF Unit REL FROM ALLOC Transfusion Status OK TO TRANSFUSE Crossmatch Result COMPATIBLE, GEL Antigen Type (Units) E antigen NEG, Unit Number [id number] Blood Component Type RBC,ADSOL,LEUKO REDUCED,2ND CONT. Unit Division 0 Status OF Unit REL FROM ALLOC Transfusion Status OK TO TRANSFUSE Crossmatch Result COMPATIBLE, GEL Antigen Type (Units) E antigen NEG, Unit Number [id number] Blood Component Type RBC,ADSOL,LEUKO REDUCED Unit Division 0 Status OF Unit REL FROM ALLOC Transfusion Status DO NOT ISSUE FOR TRANSFUSION Crossmatch Result NOT DONE Antigen Type (Units) E antigen NEG, Specimen Performing Laboratory Blood [facility] [address] [place] [address] * ANTIBODY CONSULT (06/10/2017 1:15 PM) Component Value Ref Range Antibody Consult The patient's plasma contains a newly identified alloanti-E. All other common clinically significant alloantibodies were ruled out. E negative, antihuman globulin crossmatch compatible red blood cells will be provided. 71% of the general donor population (banked blood) is compatible (E negative) with the presence of this antibody. Pathologist Signature, INTERPRETED BY WILLIS BONILLA M.D. Antibody Consult By the PATH SIGNATURE ABOVE, I attest that I have personally formulated the final interpretation expressed in this report and that the above diagnosis is based upon my examination of the slides and/or other material indicated in this report. Specimen Performing Laboratory REFERENCE LAB * PTT (APTT) (06/10/2017 1:15 PM) Component Value Ref Range APTT 30.7Comment: NOTE NEW REFERENCE RANGES 21.0 - 39.0 SEC Specimen Performing Laboratory Blood [facility] [address] [place] [address] * PROTIME INR (PT) (06/10/2017 1:15 PM) Component Value Ref Range INR 1.0 0.8 - 1.2 Specimen Performing Laboratory Blood [facility] [address] [place] [address] * TYPE & SCREEN (NOT CROSSMATCH ELIGIBLE) (06/10/2017 1:15 PM) Component Value Ref Range ABO/RH(D) O NEG Antibody Screen POS Blood Component Type RED CELL GROUP Antibody Indentification Anti-E, Antigen Information E antigen NEG, Specimen Performing Laboratory Blood, venous - Blood MAIN LAB [address] [place] [address] * COMPREHENSIVE METABOLIC PANEL (06/10/2017 1:15 PM) Component Value Ref Range Sodium 141 137 - 147 MMOL/L Potassium 4.2 3.5 - 5.1 MMOL/L Chloride 105 98 - 110 MMOL/L Glucose 107 (H) 70 - 100 MG/DL Blood Urea Nitrogen 19 7 - 25 MG/DL Creatinine 0.88 0.4 - 1.00 MG/DL Calcium 9.8 8.5 - 10.6 MG/DL Total Protein 8.0 6.0 - 8.0 G/DL Total Bilirubin 0.3 0.3 - 1.2 MG/DL Albumin 4.4 3.5 - 5.0 G/DL Alk Phosphatase 191 (H) 25 - 110 U/L AST (SGOT) 17 7 - 40 U/L CO2 28 21 - 30 MMOL/L ALT (SGPT) 15 7 - 56 U/L Anion Gap 8 3 - 12 eGFR Non >60 >60 mL/min Comment: The eGFR is not validated for use in drug dosing adjustments. Continue to use estimated creatinine clearance per dosing reference text. Please contact the Clinical Pharmacist for questions. eGFR >60 >60 mL/min Comment: The eGFR is not validated for use in drug dosing adjustments. Continue to use estimated creatinine clearance per dosing reference text. Please contact the Clinical Pharmacist for questions. Specimen Performing Laboratory Blood MAIN [facility] [address] [place] [address] * CULTURE-URINE W/SENSITIVITY (05/19/2017 3:00 PM) Component Value Ref Range Battery Name URINE CULTURE Specimen Description URINE Special Requests NONE Culture <100,000 organisms/ml STAPHYLOCOCCUS, COAGULASE NEGATIVE, NOT S. SAPROPHYTICUS (A) Report Status FINAL 05/21/2017 Organism ID <100,000 organisms/ml STAPHYLOCOCCUS, COAGULASE NEGATIVE, NOT S. SAPROPHYTICUS Organism ID <100,000 organisms/ml STAPHYLOCOCCUS, COAGULASE NEGATIVE, NOT S. SAPROPHYTICUS Specimen Performing Laboratory Urine - Urine, Outpatient MAIN LAB [address] [place] [address] Organism Antibiotic Method Susceptibility <100,000 organisms/ml Trimethsulfa VILLELA ADDISON SUSCEPTIBLE: Susceptible staphylococcus, coagulase negative, not s. saprophyticus <100,000 organisms/ml Method VILLELA ADDISON VILLELA ADDISON staphylococcus, coagulase negative, not s. saprophyticus <100,000 organisms/ml Nitrofurantoin AMADOR (MCG/ML) <=16 SUSCEPTIBLE: staphylococcus, coagulase INTERPRETATION Susceptible negative, not s. saprophyticus <100,000 organisms/ml Oxacillin AMADOR (MCG/ML) >1 RESISTANT: Resistant staphylococcus, coagulase INTERPRETATION negative, not s. saprophyticus <100,000 organisms/ml Vancomycin AMADOR (MCG/ML) <=0.5 SUSCEPTIBLE: staphylococcus, coagulase INTERPRETATION Susceptible negative, not s. saprophyticus <100,000 organisms/ml Tetracycline AMADOR (MCG/ML) <=0.5 SUSCEPTIBLE: staphylococcus, coagulase INTERPRETATION Susceptible negative, not s. saprophyticus <100,000 organisms/ml Linezolid AMADOR (MCG/ML) 1 SUSCEPTIBLE: staphylococcus, coagulase INTERPRETATION Susceptible negative, not s. saprophyticus <100,000 organisms/ml Method AMADOR (MCG/ML) AMADOR (MCG/ML) staphylococcus, coagulase INTERPRETATION INTERPRETATION negative, not s. saprophyticus from Last 3 Months
--- OUTSIDE RECORDS SUMMARY | 2017-07-12 15:00 | XMS REPORT | Continuity of Care Document ---
Author Author [employer] Organization [facility] Address Unknown Phone Unavailable Care Team Providers Care Mixer Slagman Name Role Phone [employer] Unavailable Unavailable Problems Medications Allergies, Adverse Reactions, Alerts Immunizations Results Vital Signs Encounters Location Location Details Encounter Type Encounter Number Reason For Visit Attending Provider ADM Date DC Date Status Source SPECIMEN [id number] NAKUL ALVAREZ 05/19/20172016 Active [facility] OUTPATIENT [id number] 06/10/2017 Active [facility] Yakov HAAS Active [facility] Procedures Plan of Care Social History Assessment and Plan Family History Value Date Source Advance Directives Order Name Results Value Date Source
--- OUTSIDE RECORDS SUMMARY | 2017-07-12 15:00 | XMS REPORT | Encounter Summary ---
Author Author [facility] Organization [facility] Address Unknown Phone Unavailable Care Team Providers Care Petroleum Inspector Supervisor Name Role Phone PCP Unavailable Encounter Details Date Type Department Care Team Description 07/08/2017 Pharmacy Visit [facility] [address] [place] [address] Social History Tobacco Use Types Packs/Day Years Used Date Former Smoker Cigarettes 2 15 Quit: 1987 Smokeless Tobacco: Never Used Alcohol Use Drinks/Week oz/Week Comments No 2-3 yearly Sex Assigned at Date Recorded Not on file as of this encounter Functional Status Functional Status Response Date of Assessment Does the patient have a hearing impairment: No 07/08/2017 Does the patient have a visual impairment: No 07/08/2017 Does the patient have impaired ambulation: No 07/08/2017 Does the patient have an activity of daily living No 07/08/2017 (ADL) impairment: Does the patient have an instrumental activity of No 07/08/2017 daily living (IADL) impairment: Cognitive Status Response Date of Assessment Does the patient have a cognitive impairment: No 07/08/2017 as of this encounter Plan of Treatment Not on fileas of this encounter Visit Diagnoses Not on filein this encounter
--- OUTSIDE RECORDS SUMMARY | 2017-07-12 15:01 | XMS REPORT | Encounter Summary ---
Author Author [facility] Organization [facility] Address Unknown Phone Unavailable Care Team Providers Care Data Migration Lead Name Role Phone PCP Unavailable Reason for Visit * Auth/Cert Status Reason Specialty Diagnoses / Referred By Referred To Procedures Contact Contact Diagnoses Obstruction of left ureteropelvic junction (UPJ) Procedures WY NEPHRECTOMY W/PRTL URETERECTOMY W/OPEN RIB RESCJ WY NEPHRECTOMY PARTIAL NEPHRECTOMY Encounter Details Date Type Department Care Team Description 07/04/2017 [place] [id number] Nakul Alvarez MD Non-functioning kidney - [facility] [address] [facility] [address] [facility] [address] [facility] 07/08/2017 [place] [address] [place] [address] [place] [address] [phone] Social History Tobacco Use Types Packs/Day Years Used Date Former Smoker Cigarettes 2 15 Quit: 1987 Smokeless Tobacco: Never Used Alcohol Use Drinks/Week oz/Week Comments No 2-3 yearly Sex Assigned at Date Recorded Not on file as of this encounter Last Filed Vital Signs Vital Sign Reading Time Taken Blood Pressure 127/59 07/08/2017 10:44 AM [employer] Pulse 90 07/08/2017 11:02 AM [employer] Temperature 36.6 C (97.9 F) 07/08/2017 10:44 AM [employer] Respiratory Rate - - Oxygen Saturation 94% 07/08/2017 10:44 AM [employer] Inhaled Oxygen - - Concentration Weight 83.6 kg (184 lb 4.9 oz) 07/04/2017 10:01 AM [employer] Height 156.2 cm (5' 1.5") 07/04/2017 10:01 AM [employer] Body Mass Index 34.26 07/04/2017 10:01 AM [employer] in this encounter Functional Status Functional Status Response [...] impairment: No 07/08/2017 as of this encounter Discharge Summaries * Natalie Damon APRN-NP - 07/08/2017 11:40 AM [employer] Formatting of this note may be different from the original. Physician Discharge Summary Name: Rosanne Go Date Of : 1950 Age: 67 years Admit date: 07/04/2017 Discharge date: 07/08/2017 Attending Physician: Dr. 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 Significant PMH: Past Medical History: Diagnosis Date Arthritis RA Asthma Blood clotting disorder (HCC) Heart disease Hypertension Liver disease fatty Other emphysema (HCC) Seizure (HCC) most recent 12/2016 Urinary tract infection Allergies: Benzonatate; Sulfa (sulfonamide antibiotics); Sulfamethoxazole- trimethoprim; Anaprox [naproxen sodium]; Arthrotec [diclofenac-misoprostol]; Darvocet [propoxyphene n-acetaminophen]; Diclofenac; Hydrocodone; Indomethacin; Macrobid [nitrofurantoin monohyd/m-cryst]; Misoprostol; Oxycodone; Tolectin [ tolmetin]; and Trimethoprim Admission Physical Exam notable for: Per H&P GEN: Well nourished, A&O, NAD HEENT: NCAT, EOMI, no scleral icterus CHEST: CTAB, non-labored, no adventitious sounds CV: RRR, palpable symmetric radial pulses ABD: S/NT/ND/+BS EXT: No C/C/E Admission Lab/Radiology studies notable for: 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 Patient was admitted for the surgery listed below. Patient tolerated the procedure well. Pain was controlled with epidural and was transitioned to oral pain medication on 07/07/2017. Hemoglobin was trended and stabilized after experiencing acute blood loss anemia post-operatively. Patient had return of bowel function, tolerated a diet, and all discharge criteria were met. 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 - Renal Pelvis: Dilated, edematous with focal chronic inflammation. - Kidney Parenchyma: some areas are intact with normal-appearing glomeruli & tubules and minimal inflammation; other areas are severely atrophic with severe glomerulosclerosis, severe arteriolosclerosis and abundant chronic inflammation Consults: None Patient Disposition: Home Patient instructions/medications: Basic Metabolic Panel (BMP) Standing Status: Future Standing Exp. Date: 07/04/18 Strenuous Activity Restrictions Please refrain from strenuous activity for 6 week(s). No lifting more than 10 pounds for 6 weeks. Driving Restrictions No driving while taking pain medication. Report These Signs and Symptoms Please notify physician if experiencing any chest pain, shortness of breath, calf tenderness or unilateral leg swelling, uncontrolled pain, incision redness or foul smelling drainage from wound, fevers >101.5, or any other worsening signs/symptoms. Questions About Your Stay For questions or concerns regarding your hospital stay. Call [phone] You may have questions about your hospital stay after you get home. From 8 AM to 4 PM Friday through Friday, please call Dr. Alvarez's clerk secretary to have the nurse practitioner paged at . Dr. Alvarez's clerk secretary can also assist with questions regarding your follow up appointment. If calling after hours or with urgent questions, please call and ask for the urology resident director of extension work. In case of an emergency, please report to your nearest emergency department and contact us on the way. Discharging attending physician: NAKUL ALVAREZ [[id number]] Regular Diet You have no dietary restriction. Please continue with a healthy balanced diet. Incision Care *Keep your incision clean and dry. Take daily showers. *May shower following procedure. Avoid direct water contact to the incision. Take sponge baths, working around the incision during this time. *Do not submerge incision in tub, pool, hot tub, or montaño for 4 weeks. *Usually there are not stitches to be removed. Steri-strips (strips of tape) will begin to fall off in 10-14 days. If they remain after 2 weeks, gently remove them when they are damp after a shower. *Your incision should gradually look better each day. If you notice unusual swelling, redness, drainage, have increasing pain at the site, or have a fever greater than 100 degrees, notify your physician immediately. Suture/Staple Removal You will need your shayy removed at follow up appointment. Return Appointment You will need to go to the Outpatient Lab at 2:00 to have your labs drawn on the ground floor of the Medical Office Building. You will see Dr. Alvarez at 3: 30 in the Urology clinic on the second floor of the Medical Office Building. Provider NAKUL ALVAREZ [[id number]] Location Urology Clinic Appointment date: 07/17/2017 Appointment time: 3:30 PM Opioid (Narcotic) Safety Information OPIOID (NARCOTIC) PAIN MEDICATION SAFETY We care about your comfort, and believe you need opioid medications at this time to treat your pain. An opioid is a strong pain medication. It is only available by prescription for moderate to severe pain. Usually these medications are used for only a short time to treat pain, but sometimes will be prescribed for longer. Talk with your doctor or nurse about how long they expect you to need this medication. When used the right way, opioids are safe and effective medications to treat your pain, even when used for a long time. Yet, when used in the wrong way, opioids can be dangerous for you or others. Opioids do not work for everyone. Most patients do not get full relief of their pain from opioid medication; full relief of your pain may not be possible. For your safety, we ask you to follow these instructions: *Only take your opioid medication as prescribed. If your pain is not controlled with the prescribed dose, or the medication is not lasting long enough, call your doctor. *Do not break or crush your opioid medication unless your doctor or pharmacist says you can. With certain medications, this can be dangerous, and may cause . *Never share your medications with others, even if they appear to have a good reason. Never take someone else's pain medication-this is dangerous, and illegal (a crime). Overdoses and deaths have occurred. *Keep your opioid medications safe, as you would with harrington, in a lock box or similar container. *Make sure your opioids are going to be secure, especially if you are around children or teens. *Talk with your doctor or pharmacist before you take other medications. *Avoid driving, operating machinery, or drinking alcohol while taking opioid pain medication. This may be unsafe. Pain medications can cause constipation. Constipation is bowel movements that are less often than normal. Stools often become very hard and difficult to pass. This may lead to stomach pain and bloating. It may also cause pain when trying to use the bathroom. Constipation may be treated with suppositories, laxatives or stool softeners. A diet high in fiber with plenty of fluids helps to maintain regular, soft bowel movements. Current Discharge Medication List START taking these medications Details acetaminophen (TYLENOL) 500 mg tablet Take 2 tablets by mouth three times daily. Max of 4,000 mg of acetaminophen in 24 hours. Refills: 0 PRESCRIPTION TYPE: OTC ondansetron (ZOFRAN ODT) 8 mg rapid dissolve tablet Dissolve 1 tablet by mouth every 8 hours as needed for Nausea or Vomiting. Place on tongue to disolve. Qty: 30 tablet, Refills: 0 PRESCRIPTION TYPE: Print oxyCODONE (ROXICODONE, OXY-IR) 5 mg tablet Take 1-2 tablets by mouth every 4 hours as needed Indications: PAIN Earliest Fill Date: 07/08/17 Qty: 45 tablet, Refills: 0 PRESCRIPTION TYPE: Print polyethylene glycol 3350 (GLYCOLAX; MIRALAX) 17 gram/dose powder Take 17 g by mouth twice daily. Indications: CONSTIPATION Qty: 238 g, Refills: 5 PRESCRIPTION TYPE: Print Comments: May substitute container for packets. CONTINUE these medications which have NOT CHANGED Details albuterol (VENTOLIN HFA) 90 mcg/actuation inhaler Inhale 1-2 puffs by mouth into the lungs every 6 hours as needed for Wheezing or Shortness of Breath. Shake well before use. PRESCRIPTION TYPE: Historical Med albuterol 0.5% (PROVENTIL; VENTOLIN) 2.5 mg/0.5 mL nebulizer solution Inhale 2.5 mg solution by nebulizer as directed every 6 hours as needed for Shortness of Breath or Wheezing. PRESCRIPTION TYPE: Historical Med cetirizine (ZYRTEC) 10 mg tablet Take 10 mg by mouth every morning. PRESCRIPTION TYPE: Historical Med docusate (COLACE) 100 mg capsule Take 100 mg by mouth daily. PRESCRIPTION TYPE: Historical Med doxazosin (CARDURA) 8 mg tablet Take 8 mg by mouth at bedtime daily. PRESCRIPTION TYPE: Historical Med ferrous sulfate (FEOSOL, FEROSUL) 325 mg (65 mg iron) tablet Take 325 mg by mouth daily. Take on an empty stomach at least 1 hour before or 2 hours after food. PRESCRIPTION TYPE: Historical Med fluticasone (FLONASE) 50 mcg/actuation nasal spray Apply 1 spray to each nostril as directed daily. Shake bottle gently before using. PRESCRIPTION TYPE: Historical Med fluticasone/salmeterol (ADVAIR DISKUS) 250/50 mcg inhalation disk Inhale 1 puff by mouth into the lungs twice daily as needed. PRESCRIPTION TYPE: Historical Med furosemide (LASIX) 40 mg tablet Take 40 mg by mouth daily as needed. Indications : Edema PRESCRIPTION TYPE: Historical Med lactobacillus rhamnosus GG (LACTOBACILLUS RHAMNOSUS (GG)) 15 billion cell cpSP capsule Take 1 capsule by mouth as directed daily. PRESCRIPTION TYPE: Historical Med lisinopril-hydrochlorothiazide (PRINZIDE, ZESTORETIC) 20-12.5 mg tablet Take 0.5 tablets by mouth every morning. PRESCRIPTION TYPE: Historical Med oxybutynin XL (DITROPAN XL) 15 mg tablet Take 15 mg by mouth daily as needed. Indications: INCREASED URINARY FREQUENCY PRESCRIPTION TYPE: Historical Med phenytoin SR (DILANTIN EXTENDED) 100 mg capsule Take 400 mg by mouth at bedtime daily. PRESCRIPTION TYPE: Historical Med potassium chloride SR (K-DUR) 10 mEq tablet Take 20 mEq by mouth daily as needed. Take with a meal and a full glass of water. PRESCRIPTION TYPE: Historical Med rosuvastatin (CRESTOR) 10 mg tablet Take 10 mg by mouth at bedtime daily. PRESCRIPTION TYPE: Historical Med vitamins, B complex tab Take 1 tablet by mouth daily. PRESCRIPTION TYPE: Historical Med vitamins, multi PED chewable Chew by mouth daily. PRESCRIPTION TYPE: Historical Med Scheduled appointments: Jul 17, 2017 3:30 PM [employer] Return Patient with Nakul Alvarez MD [facility] ([facility]) 2nd Floor Pod [address] [facility] [address] Pending items needing follow up: Follow up in two week for staple removal with a BMP prior Signed: MARZENA Monaco 07/08/2017 cc: Primary Care Physician: Aaron Lora Verified Referring physicians: Aaron Lora DO Additional provider(s): in this encounter Medications at Time of Discharge Medication Sig. Disp. Refills Start Date End Date acetaminophen (TYLENOL) Take 2 tablets by mouth 0 07/08/2017 500 mg tablet three times daily. Max of 4,000 mg of acetaminophen in 24 hours. albuterol (VENTOLIN HFA) Inhale 1-2 puffs by mouth 90 mcg/actuation inhaler into the lungs every 6 hours as needed for Wheezing or Shortness of Breath. Shake well before use. albuterol 0.5% Inhale 2.5 mg solution by (PROVENTIL; VENTOLIN) 2.5 nebulizer as directed mg/0.5 mL nebulizer every 6 hours as needed solution for Shortness of Breath or Wheezing. cetirizine (ZYRTEC) 10 mg Take 10 mg by mouth every tablet morning. docusate (COLACE) 100 mg Take 100 mg by mouth capsule daily. doxazosin (CARDURA) 8 mg Take 8 mg by mouth at tablet bedtime daily. ferrous sulfate (FEOSOL, Take 325 mg by mouth FEROSUL) 325 mg (65 mg daily. Take on an empty iron) tablet stomach at least 1 hour before or 2 hours after food. fluticasone (FLONASE) 50 Apply 1 spray to each mcg/actuation nasal spray nostril as directed daily. Shake bottle gently before using. fluticasone/salmeterol Inhale 1 puff by mouth (ADVAIR DISKUS) 250/50 into the lungs twice mcg inhalation disk daily as needed. furosemide (LASIX) 40 mg Take 40 mg by mouth daily tabletIndications: Edema as needed. Indications: Edema lactobacillus rhamnosus Take 1 capsule by mouth GG (LACTOBACILLUS as directed daily. RHAMNOSUS (GG)) 15 billion cell cpSP capsule lisinopril-hydrochlorothi Take 0.5 tablets by mouth azide (PRINZIDE, every morning. ZESTORETIC) 20-12.5 mg tablet ondansetron (ZOFRAN ODT) Dissolve 1 tablet by 30 tablet 0 07/08/2017 8 mg rapid dissolve mouth every 8 hours as tablet needed for Nausea or Vomiting. Place on tongue to disolve. oxybutynin XL (DITROPAN Take 15 mg by mouth daily XL) 15 mg as needed. Indications: tabletIndications: INCREASED URINARY INCREASED URINARY FREQUENCY FREQUENCY oxyCODONE (ROXICODONE, Take 1-2 tablets by mouth 45 tablet 0 2016 OXY-IR) 5 mg every 4 hours as needed tabletIndications: PAIN Indications: PAIN Earliest Fill Date: 07/08/17 phenytoin SR (DILANTIN Take 400 mg by mouth at EXTENDED) 100 mg capsule bedtime daily. polyethylene glycol 3350 Take 17 g by mouth twice 238 g 5 07/08/2017 (GLYCOLAX; MIRALAX) 17 daily. Indications: gram/dose CONSTIPATION powderIndications: CONSTIPATION potassium chloride SR Take 20 mEq by mouth (K-DUR) 10 mEq tablet daily as needed. Take with a meal and a full glass of water. rosuvastatin (CRESTOR) 10 Take 10 mg by mouth at mg tablet bedtime daily. vitamins, B complex tab Take 1 tablet by mouth daily. vitamins, multi PED Chew by mouth daily. chewable as of this encounter Progress Notes * Madeleine Estrada RN - 07/08/2017 11:04 AM [employer] Rosanne Go discharged on 07/08/2017. . Discharge instructions reviewed with patient. Valuables returned: Personal Items / Valuables: Eyeglasses/Contacts, Clothing, Electronics Electronic Devices: Cell Phone. Functional assessment at discharge complete: Yes . Pt discharge paperwork completed. Pt awaiting transport. Pt had no further questions. HR at discharge was 90bpm and patient stated her heart rate runs high. Pt to discharge home with . * Nakul Alvarez MD - 07/08/2017 5:35 AM [employer] Formatting of this note may be different from the original. ASSESSMENT: Rosanne Go is a 67 y.o. 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 LOS: 4 days PLAN: will discuss plan with staff surgeon - Dr. Alvarez - Pain control: PO w/ IV breakthrough - Diet/FEN: Regular diet, Boost Breeze, SLIV - GI: bowel regimen, zofran prn - : Voiding spontaneously. Cr 0.55 (0.52) - Heme/ID: afebrile. Hgb/WBC stable. Acute Blood Loss Anemia is stable. - Resp: Encourage IS use, breathing treatments PRN per respiratory therapy, wean supplemental oxygen - OOB/Amb - Dispo: Discharge planning Prophylaxis Review: - DVT: Heparin, SCD's - GI: No - Catheter: Yes - Abx: Yes Adrian Henson MD PGY-1 Urology Please page urology director of extension work with questions ATTESTATION I personally performed the burrell portions of the E/M visit, discussed case with resident and concur with resident documentation of history, physical exam, assessment, and treatment plan unless otherwise noted. Patient doing well. Eager to go home. Tolerating PO. Ambulating. Passing flatus. Abdomen soft, appropriate Abdominal binder in place Incision intact with shayy, bruising resolving Pathology: Small, non-functioning kidney. Results of pathology discussed with patient and a copy of pathology was given to her. A/P: s/p left nephrectomy in horseshoe kidney doing well. Acute blood loss anemia is resolving. -- increase activity -- diet as tolerated -- d/c planning. F/U 2 weeks for staple removal Staff name: Nakul Alvarez MD Date: 07/08/2017 SUBJECTIVE: Overnight events: No acute events overnight. Pain fairly well controlled on current regimen. Tolerating regular food but appetite is low, + flatus, + BM. Ambulating. OBJECTIVE: Vital Signs: Most Recent Vital Signs: Past 24 Hours BP: 132/57 (07/08 410) Temp: 37.1 C (98.7 F) (07/08 410) Pulse: 90 (07/08 527) Respirations: 20 PER MINUTE (07/08 527) SpO2: 93 % (07/08 527) O2 Delivery: None (Room Air) (07/08 410) BP: (116-138)/(51-65) Temp: [36.9 C (98.5 F)-37.7 C (99.8 F)] Pulse: [90-100] Respirations: [16 PER MINUTE-20 PER MINUTE] SpO2: [93 %-97 %] O2 Delivery: None (Room Air) UOP: 800 mL General: Alert & oriented, no acute distress Pulm: non-labored on RA CV: Regular rate Abd: Soft, appropriately tender, non-distended. Incisions/Wounds: Appropriately tender to palpation. Midline incision c/d/i with shayy and mild ecchymosis Extremities: No edema, SCD's in place Labs: Hematology Chemistry Recent Labs 07/07/17 0448 WBC 5.6 HGB 8.5* PLTCT 92* Recent Labs 07/07/17 0448 NA 140 K 3.9 CL 107 CO2 27 BUN 6* CR 0.52 GFR >60 GLU 99 CA 8.6 PO4 2.8 * Ema Dominguez, RT - 07/07/2017 12:42 PM [employer] Formatting of this note may be different from the original. RESPIRATORY THERAPY ADULT PROTOCOL EVALUATION RESPIRATORY PROTOCOL PLAN Medications Albuterol: MDI PRN;Neb PRN Note: If indicated by protocol, medication orders will be placed by therapist. Procedures Oxygen/Humidity: O2 to keep SpO2 > 92% Monitoring: Pulse oximetry BID & PRN PATIENT EVALUATION RESULTS Chart Review * Pulmonary Hx: Hx pulmonary disease, hx reactive or obstructive airway disease (PEFR & AM) OR regular home use of bronchodilators (AM) OR inhaled or systemic steroid use for lungs < or equal to 4 times/yr (AM) * Surgical Hx: Thoracic or abdominal surgery/injury (LE) * Chest X-Ray: Clear OR not available * PFT/Oxygenation: FEV1, PEFR 70-80% OR Pa02 70-80 RA OR Sp02 92-95% Patient Assessment * Respiratory Pattern: Regular pattern and rate OR good chest excursion with deep breathing * Breath Sounds: Clear apically, but diminished in bases (LE) OR CHF related crackles (02) (oximetry) * Cough / Sputum: Strong, effective cough OR nonproductive * Mental Status: Alert, oriented, cooperative * Activity Level: Ambulatory with assistance Priority Index Total Points: 9 Points * Priority Index: 1+ PRIORITY INDEX GUIDELINES* Priority Points 1 0-9 points 2 9-18 points 3 > 18 points + Pulm Dx or Home Rx *Higher points indicate higher acuity. Therapist: Ema Dominguez, RT Date: 07/07/2017 Burrell AC=Airway clearance AM=Aerosolized medication BA=[place] aerosol DB&C=Deep breathe & cough FEV1=Forced expiratory volume in first second) IC=Inspiratory capacity LE=Lung expansion MDI=Metered dose inhaler Neb=Nebulizer O2=Oxygen Oxim=Oximetry PEFR=Peak expiratory flow rate DOORKEEPER=Rapid Response Team * Macie Mittal OT - 07/07/2017 9:51 AM [employer]PER[employer] Formatting of this note may be different from the original. OCCUPATIONAL THERAPY ASSESSMENT/DISCHARGE NOTE Patient Name: Rosanne Go Room/Bed: HC831[facility] Admitting Diagnosis: Non-functioning kidney Past Medical History: Diagnosis Date Arthritis RA Asthma Blood clotting disorder (HCC) Heart disease Hypertension Liver disease fatty Other emphysema (HCC) Seizure (HCC) most recent 12/2016 Urinary tract infection Mobility Progressive Mobility Level: Walk in hallway Distance Walked (feet): 260 ft Level of Assistance: Stand by assistance Assistive Device: Walker Time Tolerated: 11-30 minutes Activity Limited By: Fatigue Subjective Pertinent Dx per Physician: 67 y.o. 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, s/p open nephrectomy of the left moiety of horseshoe kidney on 07/04/17 Precautions: Standard;Abdominal Binder Pain / Complaints: Patient agrees to participate in therapy Objective Psychosocial Status: Willing and Cooperative to Participate Persons Present: Spouse Home Living Type of Home: House Home Layout: One Level (4 steps to enter; 4 steps to bedroom) Bathroom Shower / Tub: Walk-in Shower Bathroom Toilet: Standard Bathroom Equipment: Shower Chair;Hand-Held Shower Home Equipment: Engineering Surveyor Prior Function Level Of [place]: Independent with ADLs and functional transfers; Independent with homemaking w/ ambulation Lives With: Spouse Receives Help From: None Needed Vocational: Retired ADL's Where Assessed: Standing at Sink;Chair Equipment Provided: Long Handled Sponge Eating Assist: Independent Grooming Assist: Stand By Assist Grooming Deficits: Teeth Care Toileting Assist: Total Assist (esteban) Functional Transfer Assist: Stand By Assist Functional Transfer Deficits: Setup Comment: Pt in chair upon OT arrival. Pt completed sit>stand with stand by assistance using roller walker. Pt ambulate to sink with stand by assistance and completed grooming standing at sink. Pt then ambulated in hallway using roller walker with stand by assistance. Pt returned to room and is sitting in chair with all needs within reach. Activity Tolerance Endurance: 2/5 Tolerates 10-20 Minutes Exercise w/Multiple Rests Sitting Balance: 4/5 Moves/Returns Trunkal Midpoint 1-2 Inches in Multiple Planes Cognition Overall Cognitive Status: WNL Attention: Awake/Alert UE AROM Grasp: Bilateral Grasp Functional for Activity Education Persons Educated: Patient/Family Barriers To Learning: None Noted Teaching Methods: Verbal Instruction Patient Response: Verbalized Understanding Topics: Role of OT, Goals for Therapy;Adaptive Devices for ADLs;ADL Compensatory Techniques Goal Formulation: With Patient/Family Assessment Assessment: Decreased ADL Status Prognosis: Good;w/ Family Goal Formulation: Patient AM-PAC 6 Clicks Daily Activity Inpatient Putting on and taking off regular lower body clothes?: A Little Bathing (Including washing, rinsing, drying): A Little Toileting, which includes using toilet, bedpan, or urinal: Total Putting on and taking off regular upper body clothing: None Taking care of personal grooming such as brushing teeth: None Eating meals?: None Daily Activity Raw Score: 19 Standardized (t-scale) score: 40.22 CMS 0-100% Score: 42.8 CMS G Code Modifier: CK Plan Progress: Discontinue OT OT Discharge Recommendations OT Discharge Recommendations: Home with family assist Equipment Recommendations: Patient owns necessary equipment Recommend ongoing assistance for: In and out of house, Bed mobility, Meal preparation, Dressing G-Codes: Self-care G8987 Current Status: 1-19% Impairment G8988 Goal Status: 1-19% Impairment G8989 Discharge Status: 1-19% Impairment Based on above evaluation and clinical judgment. Therapist: DELFINO Salazar/Tomas Date: 07/07/2017 * Radha Molina DO - 07/07/2017 9:20 AM [employer] SUPERVISOR Formatting of this note may be different from the original. Anesthesiology Acute Pain Service Date of Service: 07/07/2017 Name: Rosanne Go is a 67 y.o. female : 1950 PROCEDURE: Procedure(s) with comments: OPEN NEPHRECTOMY OF LEFT MOIETY OF THE HORSESHOE KIDNEY - CASE LENGTH 4 HOURS POD #: 3 ANALGESIA TECHNIQUE Epidural catheter: bupivacaine 0.1% ADJUNCT ANALGESIA MEDICATIONS fentanyl acetaminophen PO oxycodone TREATMENT PLAN Catheter removed with tip intact and Discontinued therapy, convert to oral pain medication, analgesia to be provided by primary team . Primary team paged and informed. Transition to PO pain, patient states she tolerates oxycodone if co-administered with zofran. Anesthesia Pain pager: [phone] Allergies Allergen Reactions Benzonatate ANAPHYLAXIS and RASH Sulfa (Sulfonamide Antibiotics) ANAPHYLAXIS and HIVES Sulfamethoxazole-Trimethoprim SHORTNESS OF BREATH and STOMACH UPSET Anaprox [Naproxen Sodium] SEE COMMENTS "sores in mouth & nose" Arthrotec [Diclofenac-Misoprostol] STOMACH UPSET Darvocet [Propoxyphene N-Acetaminophen] STOMACH UPSET Diclofenac STOMACH UPSET Hydrocodone STOMACH UPSET Indomethacin STOMACH UPSET Macrobid [Nitrofurantoin Monohyd/M-Cryst] STOMACH UPSET Misoprostol STOMACH UPSET Oxycodone STOMACH UPSET Tolectin [Tolmetin] SEE COMMENTS "affected kidneys" Trimethoprim STOMACH UPSET Inpatient Medications Scheduled Meds: acetaminophen (TYLENOL) tablet 1,000 mg 1,000 mg Oral TID albuterol 0.083% (PROVENTIL; VENTOLIN) nebulizer solution 2.5 mg 2.5 mg Inhalation TID & PRN bisacodyl (DULCOLAX) rectal suppository 10 mg 10 mg Rectal BID doxazosin (CARDURA) tablet 8 mg 8 mg Oral QHS fluticasone/salmeterol (ADVAIR DISKUS) 250/50 mcg inhalation disk 1 puff 1 puff Inhalation BID heparin (porcine) PF syringe 5,000 Units 5,000 Units Subcutaneous BID loratadine (CLARITIN) tablet 10 mg 10 mg Oral QDAY phenytoin SR (DILANTIN) capsule 400 mg 400 mg Oral QHS polyethylene glycol 3350 (MIRALAX) packet 17 g 1 packet Oral BID rosuvastatin (CRESTOR) tablet 10 mg 10 mg Oral QHS senna/docusate (SENOKOT-S) tablet 1 tablet 1 tablet Oral BID Continuous Infusions: lactated ringers infusion 100 mL/hr at 07/07/17 0651 PRN and Respiratory Meds:albuterol Q6H PRN, diphenhydrAMINE Q4H PRN, fentaNYL citrate PF Q1H PRN, hyoscyamine Q4H PRN, naloxone PRN, ondansetron (ZOFRAN) IV Q6H PRN, ondansetron Q6H PRN, oxyCODONE Q4H PRN Anticoagulants heparin (porcine) PF syringe 5,000 Units BID HPI Visual Analog Scale (VAS) (0-10 Scale) At rest: 2 Patient satisfied with pain control: Yes Side Effects: none EXAM Recent Vitals Vital Signs: 24 Hour Range BP: 116/51 (07/07 756) Temp: 37.7 C (99.8 F) (07/07 756) Pulse: 97 (07/07 756) Respirations: 18 PER MINUTE (07/07 756) SpO2: 95 % (07/07 756) O2 Delivery: Nasal Cannula (07/07 756) BP: (111-123)/(48-65) Temp: [37.1 C (98.7 F)-37.7 C (99.8 F)] Pulse: [92-121] Respirations: [18 PER MINUTE-20 PER MINUTE] SpO2: [95 %-99 %] O2 Delivery: Nasal Cannula Lab Results Component Value Date PLTCT 92 07/07/2017 WBC 5.6 07/07/2017 HGB 8.5 07/07/2017 HCT 23.8 07/07/2017 CR 0.52 07/07/2017 PTT 30.7 06/10/2017 INR 1.0 06/10/2017 Level of Consciousness: Awake/alert Neurologic Function Sensory block: Yes Motor: No Insertion Site: Site clean and nontender Associated attestation - Aure Kate MD - 07/07/2017 10:03 AM [employer]PER[employer] Formatting of this note may be different from the original. ATTESTATION I personally observed the resident performing the E/M, discussed case with resident, and concur with resident documentation of history, physical assessment and treatment plan unless otherwise noted. Staff name: Aure Kate MD Date: 07/07/2017 * Tashi Stone, PT - 07/07/2017 9:00 AM [employer] SUPERVIS[employer] PHYSICAL THERAPY PROGRESS NOTE MOBILITY: Mobility Progressive Mobility Level: Walk laps Distance Walked (feet): 360 ft Level of Assistance: Assist X1 Assistive Device: Walker Time Tolerated: 0-10 minutes Activity Limited By: Fatigue SUBJECTIVE: Subjective Significant hospital events: 67 y.o. 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, s/p open nephrectomy of the left moiety of horseshoe kidney on 07/04/17 Mental / Cognitive Status: Alert;Oriented;Cooperative;Follows Commands Persons Present: Spouse Pain: Patient demonstrates non-verbal signs of pain;Before activity Pain Location: Post-surgical Pain Description: Aching Pain Interventions: Patient agrees to participate in therapy Ambulation Assist: Independent Mobility in Community without Device Patient Owned Equipment: Roller Walker;Single Point Cane Home Situation: Lives with Family () Type of Home: House Entry Stairs: 3-5 Stairs;Rail on 1 Side (4 to enter) In-Home Stairs: 1-2 Stairs;No Rail (2 stairs down to bedroom) BED MOBILITY/TRANSFERS: Bed Mobility/Transfers Bed Mobility: Supine to Sit: Minimal Assist;Head of Bed Elevated;Safety Considerations;Assist with Trunk (held out a hand when coming up to sit) Transfer Type: Sit to/from Stand Transfer: Assistance Level: From;Bed;To;Bed Side Chair;Standby Assist Transfer: Assistive Device: Roller Walker Transfers: Type Of Assistance: For Balance;For Safety Considerations End Of Activity Status: Up in Chair;Nursing Notified;Instructed Patient to Request Assist with Mobility;Instructed Patient to Use Call Light BALANCE: Balance Sitting Balance: Static Sitting Balance;Dynamic Sitting Balance;No UE Support; Standby Assist Standing Balance: Static Standing Balance;Dynamic Standing Balance;2 UE support; Standby Assist GAIT: Gait Gait Distance: 360 feet Gait: Assistance Level: Standby Assist;Management of Lines;Safety Considerations Gait: Assistive Device: Roller Walker Gait: Descriptors: Pace: Slow;Swing-Through Gait;No balance loss;Variable step length Stairs: Number Climbed: 3 Stairs: Descriptors: Ascend;Descend;Non-Reciprocal Stairs: Assistance Level: Ascend;Descend;Standby Assist Stairs: Assistive Device: One Rail Activity Limited By: Complaint of Fatigue;Patient Choice EDUCATION: Education Persons Educated: Patient Patient Barriers To Learning: None Noted Teaching Methods: Verbal Instruction;Demonstration Patient Response: Verbalized Understanding;Return Demonstration Topics: Plan/Goals of PT Interventions;Use of Assistive Device/Orthosis; Mobility Progression;Safety Awareness;Up with Assist Only;Importance of Increasing Activity;Ambulate With Nursing;Recommend Continued Therapy ASSESSMENT/PROGRESS: Assessment/Progress Impaired Mobility Due To: Pain;Decreased Activity Tolerance;Post Surgical Changes Assessment/Progress: Should Improve w/ Continued PT AM-PAC 6 Clicks Basic Mobility Inpatient Turning from your back to your side while in a flat bed without using bed rails : A Little Moving from lying on your back to sitting on the side of a flatbed without using bedrails : A Little Moving to and from a bed to a chair (including a wheelchair): None Standing up from a chair using your arms (e.g. wheelchair, or bedside chair): None To walk in hospital room: None Climbing 3-5 steps with a railing: A Little Raw Score: 21 Standardized (T-scale) Score: 45.55 Basic Mobility CMS 0-100%: 29.52 CMS G Code Modifier for Basic Mobility: CJ GOALS: Goals Goal Formulation: With Patient Time For Goal Achievement: 5 days, To, 7 days Pt Will Go Supine To/From Sit: Independently Pt Will Transfer Sit to Stand: Independently Pt Will Ambulate: Greater than 200 Feet, w/ No Device, Independently Pt Will Go Up / Down Stairs: 3-5 Stairs, w/ Stand By Assist PLAN: Plan Treatment Interventions: Mobility Training;Strengthening;Balance Activities; Endurance Training Plan Frequency: 5 Days per Week Comments: increase independence with all activities as tolerated; continue wit hstairs RECOMMENDATIONS: PT Discharge Recommendations PT Discharge Recommendations: Home with Assistance Equipment Recommendations: Patient owns necessary equipment Therapist: Tashi Stone PT, DPT Date: 07/07/2017 * Nakul Alvarez MD - 07/07/2017 5:41 AM [employer]PER[employer] Formatting of this note may be different from the original. ASSESSMENT: Rosanne Go is a 67 y.o. 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 LOS: 3 days PLAN: will discuss plan with staff surgeon - Dr. Alvarez - Pain control: Remove epidural, advance to PO pain control today, tylenol, fentanyl breakthrough - Diet/FEN: Advance to regular diet, Boost Breeze - GI: bowel regimen, zofran prn - : Remove esteban catheter after epidural out - Heme/ID: afebrile. Hgb 8.5 (9.1); WBC 5.6 (6.0) - Resp: Encourage IS use, breathing treatments PRN per respiratory therapy, wean supplemental oxygen - OOB/Amb - Dispo: Continue inpatient care Prophylaxis Review: - DVT: Heparin, SCD's - GI: No - Catheter: Yes - Abx: Yes Huy Mcgee MD PGY-2 Urology Please page urology director of extension work with questions ATTESTATION I personally performed the burrell portions of the E/M visit, discussed case with resident and concur with resident documentation of history, physical exam, assessment, and treatment plan unless otherwise noted. Patient overall doing well. Ambulating. No bowel movements yet. Tolerating clears. Abdomen soft, appropriate Incisions c/d/i with shayy in place. Mild elaina-incisional bruising. Esteban in place with clear urine A/P: s/p Left open nephrectomy for non-functioning entity of her horseshoe kidney recovering well -- increase activity -- d/c epidural -- diet as tolerated -- current inpatient care Staff name: Nakul Alvarez MD Date: 07/07/2017 SUBJECTIVE: Overnight events: No acute events overnight. Pain controlled on current regimen. Tolerating CLD but appetite is low, + flatus, - BM. Ambulating. OBJECTIVE: Vital Signs: Most Recent Vital Signs: Past 24 Hours BP: 117/48 (07/07 355) Temp: 37.1 C (98.8 F) (07/07 355) Pulse: 92 (07/07 355) Respirations: 20 PER MINUTE (07/07 355) SpO2: 99 % (07/07 355) O2 Delivery: Nasal Cannula (07/07 355) BP: (111-123)/(48-65) Temp: [37.1 C (98.7 F)-37.6 C (99.7 F)] Pulse: [92-121] Respirations: [18 PER MINUTE-20 PER MINUTE] SpO2: [92 %-99 %] O2 Delivery: Nasal Cannula UOP: 2175 mL General: Alert & oriented, no acute distress Pulm: non-labored on RA CV: Regular rate Abd: Soft, appropriately tender, non-distended. Incisions/Wounds: Appropriately tender to palpation. Midline incision c/d/i with shayy and mild ecchymosis Extremities: No edema, SCD's in place : Esteban catheter in place draining clear yellow urine Labs: Hematology Chemistry Recent Labs 07/07/17 0448 WBC 5.6 HGB 8.5* PLTCT 92* Recent Labs 07/07/17 0448 NA 140 K 3.9 CL 107 CO2 27 BUN 6* CR 0.52 GFR >60 GLU 99 CA 8.6 PO4 2.8 * Glenn Laguna, DO - 07/06/2017 12:18 PM [employer]PER[employer] Formatting of this note may be different from the original. Anesthesiology Acute Pain Service Date of Service: 07/06/2017 Name: Rosanne Go is a 67 y.o. female : 1950 PROCEDURE: Procedure(s) with comments: OPEN NEPHRECTOMY OF LEFT MOIETY OF THE HORSESHOE KIDNEY - CASE LENGTH 4 HOURS POD #: 2 ANALGESIA TECHNIQUE Epidural catheter: bupivacaine 0.1% ADJUNCT ANALGESIA MEDICATIONS fentanyl acetaminophen PO oxycodone TREATMENT PLAN Continue use of epidural for pain management. Transition to PO pain. Possible dc epidural tomorrow. Anesthesia Pain pager: [phone] Allergies Allergen Reactions Benzonatate ANAPHYLAXIS and RASH Sulfa (Sulfonamide Antibiotics) ANAPHYLAXIS and HIVES Sulfamethoxazole-Trimethoprim SHORTNESS OF BREATH and STOMACH UPSET Anaprox [Naproxen Sodium] SEE COMMENTS "sores in mouth & nose" Arthrotec [Diclofenac-Misoprostol] STOMACH UPSET Darvocet [Propoxyphene N-Acetaminophen] STOMACH UPSET Diclofenac STOMACH UPSET Hydrocodone STOMACH UPSET Indomethacin STOMACH UPSET Macrobid [Nitrofurantoin Monohyd/M-Cryst] STOMACH UPSET Misoprostol STOMACH UPSET Oxycodone STOMACH UPSET Tolectin [Tolmetin] SEE COMMENTS "affected kidneys" Trimethoprim STOMACH UPSET Inpatient Medications Scheduled Meds: acetaminophen (TYLENOL) tablet 1,000 mg 1,000 mg Oral TID albuterol 0.083% (PROVENTIL; VENTOLIN) nebulizer solution 2.5 mg 2.5 mg Inhalation TID & PRN bisacodyl (DULCOLAX) rectal suppository 10 mg 10 mg Rectal BID doxazosin (CARDURA) tablet 8 mg 8 mg Oral QHS fluticasone/salmeterol (ADVAIR DISKUS) 250/50 mcg inhalation disk 1 puff 1 puff Inhalation BID heparin (porcine) PF syringe 5,000 Units 5,000 Units Subcutaneous BID loratadine (CLARITIN) tablet 10 mg 10 mg Oral QDAY phenytoin SR (DILANTIN) capsule 400 mg 400 mg Oral QHS polyethylene glycol 3350 (MIRALAX) packet 17 g 1 packet Oral BID rosuvastatin (CRESTOR) tablet 10 mg 10 mg Oral QHS senna/docusate (SENOKOT-S) tablet 1 tablet 1 tablet Oral BID Continuous Infusions: bupivacaine CRITICAL CARE NURSE SPECIALIST 0.1% in NS 50mL epidural infusion syr (std conc) lactated ringers infusion 100 mL/hr at 07/06/17 0342 PRN and Respiratory Meds:albuterol Q6H PRN, diphenhydrAMINE Q4H PRN, fentaNYL citrate PF Q1H PRN, hyoscyamine Q4H PRN, lidocaine PF PRN, naloxone PRN, ondansetron (ZOFRAN) IV Q6H PRN, oxyCODONE Q4H PRN Anticoagulants heparin (porcine) PF syringe 5,000 Units BID HPI Visual Analog Scale (VAS) (0-10 Scale) At rest: 0 Patient satisfied with pain control: Yes Side Effects: none EXAM Recent Vitals Vital Signs: 24 Hour Range BP: 123/65 (07/06 1158) Temp: 37.1 C (98.8 F) (07/06 1158) Pulse: 116 (07/06 1158) Respirations: 18 PER MINUTE (07/06 1158) SpO2: 96 % (07/06 1158) O2 Delivery: None (Room Air) (07/06 1158) BP: (113-125)/(46-65) Temp: [36.9 C (98.5 F)-37.3 C (99.2 F)] Pulse: [91-116] Respirations: [17 PER MINUTE-22 PER MINUTE] SpO2: [92 %-100 %] O2 Delivery: None (Room Air) Lab Results Component Value Date PLTCT 86 07/06/2017 WBC 6.0 07/06/2017 HGB 9.1 07/06/2017 HCT 25.8 07/06/2017 CR 0.59 07/06/2017 PTT 30.7 06/10/2017 INR 1.0 06/10/2017 Level of Consciousness: Awake/alert Neurologic Function Sensory block: Yes Motor: No Insertion Site: Site clean and nontender Associated attestation - Antoinette Kline MD - 07/06/2017 1:09 PM [employer]PER[employer] Formatting of this note may be different from the original. ATTESTATION I personally observed the resident performing the E/M, discussed case with resident, and concur with resident documentation of history, physical assessment and treatment plan unless otherwise noted. Staff name: Antoinette Kline MD Date: 07/06/2017 * Reina Meadows MD - 07/06/2017 7:23 AM [employer]PER[employer] Formatting of this note may be different from the original. ASSESSMENT: Rosanne Go is a 67 y.o. 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 LOS: 2 days PLAN: will discuss plan with staff surgeon - Dr. Meadows - Pain control: PCEA, tylenol, fentanyl breakthrough - Diet/FEN: CLD, Boost Breeze - GI: bowel regimen, zofran prn - : Maintain esteban catheter - Heme/ID: afebrile. Hgb 9.1 (9.7); WBC 6.0 (6.9) - Resp: Encr IS use, breathing treatments PRN per respiratory therapy - OOB/Amb - Dispo: Continue inpatient care Prophylaxis Review: - DVT: Heparin, SCD's - GI: No - Catheter: Yes - Abx: Yes Adrian Henson MD PGY-1 Urology Please page urology director of extension work with questions SUBJECTIVE: Overnight events: No acute events overnight. Pain controlled on current regimen. Mild nausea with CLD without emesis. Small bowel movement yesterday. Has ambulated. OBJECTIVE: Vital Signs: Most Recent Vital Signs: Past 24 Hours BP: 118/50 (07/06 719) Temp: 37.3 C (99.2 F) (07/06 719) Pulse: 110 (07/06 719) Respirations: 18 PER MINUTE (07/06 719) SpO2: 92 % (07/06 719) O2 Delivery: Nasal Cannula (07/06 719) BP: (106-125)/(40-59) Temp: [36.9 C (98.5 F)-37.3 C (99.2 F)] Pulse: [90-110] Respirations: [17 PER MINUTE-22 PER MINUTE] SpO2: [92 %-100 %] O2 Delivery: Nasal Cannula General: Alert & oriented, no acute distress Pulm: non-labored on RA CV: Regular rate Abd: Soft, appropriately tender, non-distended. Incisions/Wounds: Appropriately tender to palpation. Midline incision dressing taken down, wound c/d/i with shayy and mild ecchymosis Extremities: No edema, SCD's in place : Esteban catheter in place draining clear yellow urine Labs: Hematology Chemistry Recent Labs 07/06/17417 WBC 6.0 HGB 9.1* PLTCT 86* Recent Labs 07/06/17417 NA 138 K 4.5 CL 108 CO2 23 BUN 8 CR 0.59 GFR >60 GLU 107* CA 8.8 PO4 2.9 ATTESTATION I personally observed the resident performing the E/M, discussed case with resident, and concur with resident documentation of history, physical assessment and treatment plan unless otherwise noted. Staff name: Reina Meadows MD * Mery Barajas MD - 07/05/2017 12:34 PM [employer]PER[employer] Formatting of this note may be different from the original. Anesthesiology Acute Pain Service Date of Service: 07/05/2017 Name: Rosanne Go is a 67 y.o. female : 1950 PROCEDURE: Procedure(s) with comments: OPEN NEPHRECTOMY OF LEFT MOIETY OF THE HORSESHOE KIDNEY - CASE LENGTH 4 HOURS POD #: 1 ANALGESIA TECHNIQUE Epidural catheter: bupivacaine 0.1% ADJUNCT ANALGESIA MEDICATIONS fentanyl acetaminophen PO TREATMENT PLAN Continue use of epidural for pain management Anesthesia Pain pager: [phone] Allergies Allergen Reactions Benzonatate ANAPHYLAXIS and RASH Sulfa (Sulfonamide Antibiotics) ANAPHYLAXIS and HIVES Sulfamethoxazole-Trimethoprim SHORTNESS OF BREATH and STOMACH UPSET Anaprox [Naproxen Sodium] SEE COMMENTS "sores in mouth & nose" Arthrotec [Diclofenac-Misoprostol] STOMACH UPSET Darvocet [Propoxyphene N-Acetaminophen] STOMACH UPSET Diclofenac STOMACH UPSET Hydrocodone STOMACH UPSET Indomethacin STOMACH UPSET Macrobid [Nitrofurantoin Monohyd/M-Cryst] STOMACH UPSET Misoprostol STOMACH UPSET Oxycodone STOMACH UPSET Tolectin [Tolmetin] SEE COMMENTS "affected kidneys" Trimethoprim STOMACH UPSET Inpatient Medications Scheduled Meds: acetaminophen (TYLENOL) tablet 1,000 mg 1,000 mg Oral TID albuterol 0.083% (PROVENTIL; VENTOLIN) nebulizer solution 2.5 mg 2.5 mg Inhalation TID & PRN bisacodyl (DULCOLAX) rectal suppository 10 mg 10 mg Rectal BID doxazosin (CARDURA) tablet 8 mg 8 mg Oral QHS fluticasone/salmeterol (ADVAIR DISKUS) 250/50 mcg inhalation disk 1 puff 1 puff Inhalation BID heparin (porcine) PF syringe 5,000 Units 5,000 Units Subcutaneous BID loratadine (CLARITIN) tablet 10 mg 10 mg Oral QDAY phenytoin SR (DILANTIN) capsule 400 mg 400 mg Oral QHS polyethylene glycol 3350 (MIRALAX) packet 17 g 1 packet Oral BID rosuvastatin (CRESTOR) tablet 10 mg 10 mg Oral QHS senna/docusate (SENOKOT-S) tablet 1 tablet 1 tablet Oral BID Continuous Infusions: bupivacaine CRITICAL CARE NURSE SPECIALIST 0.1% in NS 50mL epidural infusion syr (std conc) lactated ringers infusion 100 mL/hr at 07/04/17 2201 PRN and Respiratory Meds:albuterol Q6H PRN, diphenhydrAMINE Q4H PRN, fentaNYL citrate PF Q1H PRN, hyoscyamine Q4H PRN, lidocaine PF PRN, naloxone PRN, ondansetron (ZOFRAN) IV Q6H PRN, oxyCODONE Q4H PRN Anticoagulants heparin (porcine) PF syringe 5,000 Units BID HPI Visual Analog Scale (VAS) (0-10 Scale) At rest: 0 Patient satisfied with pain control: Yes Side Effects: none EXAM Recent Vitals Vital Signs: 24 Hour Range BP: 106/40 (07/05 853) Temp: 37 C (98.6 F) (07/05 853) Pulse: 90 (07/05 853) Respirations: 17 PER MINUTE (07/05 853) SpO2: 99 % (07/05 853) O2 Delivery: Nasal Cannula (07/05 853) SpO2 Pulse: 86 (07/04 1700) BP: (106-127)/(40-58) Temp: [36.3 C (97.3 F)-37 C (98.6 F)] Pulse: [76-91] Respirations: [12 PER MINUTE-19 PER MINUTE] SpO2: [96 %-100 %] O2 Delivery: Nasal Cannula Lab Results Component Value Date PLTCT 100 07/05/2017 WBC 6.9 07/05/2017 HGB 9.7 07/05/2017 HCT 27.6 07/05/2017 CR 0.70 07/05/2017 PTT 30.7 06/10/2017 INR 1.0 06/10/2017 Level of Consciousness: Awake/alert Neurologic Function Sensory block: Yes Motor: No Insertion Site: Site clean and nontender Associated attestation - Antoinette Kline MD - 07/05/2017 12:53 PM [employer]PER[employer] Formatting of this note may be different from the original. ATTESTATION I personally observed the resident performing the E/M, discussed case with resident, and concur with resident documentation of history, physical assessment and treatment plan unless otherwise noted. Staff name: Antoinette Kline MD Date: 07/05/2017 * Keila Pillai, PT - 07/05/2017 11:04 AM [employer] SUPERVIS[employer] PHYSICAL THERAPY ASSESSMENT MOBILITY: Mobility Progressive Mobility Level: Walk in hallway Distance Walked (feet): 400 ft Level of Assistance: Assist X1 Assistive Device: Walker Time Tolerated: 11-30 minutes Activity Limited By: Pain SUBJECTIVE: Subjective Significant hospital events: 67 y.o. 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, s/p open nephrectomy of the left moiety of horseshoe kidney on 07/04/17 Mental / Cognitive Status: Alert;Oriented;Cooperative;Follows Commands Persons Present: Spouse Pain: Patient complains of pain;2/10;Before activity;6/10;During activity Pain Location: Post-surgical Pain Description: Aching Pain Interventions: Patient encouraged to use CRITICAL CARE NURSE SPECIALIST/PNC (IV);Patient assisted into position of comfort Precautions: Epidural Comments: 2 liters of oxygen Ambulation Assist: Independent Mobility in Community without Device Patient Owned Equipment: Roller Walker;Single Point Cane Home Situation: Lives with Family () Type of Home: House Entry Stairs: 3-5 Stairs;Rail on 1 Side (4 stairs to enter) In-Home Stairs: 1-2 Stairs;No Rail (2 stairs down to bedroom ) Comments: Patient reports that she was independent with all ADL and IADL prior to admission. ROM: ROM LE ROM: Bilateral;WFL STRENGTH: Strength R LE WNL: Yes L LE WNL: Yes POSTURE/NEURO: Posture / Neurological Head Control: Independent Posture: Rounded Shoulders BED MOBILITY/TRANSFERS: Bed Mobility/Transfers Bed Mobility: Supine to Sit: Moderate Assist;Assist with Trunk Comments: Tolerated sitting edge of bed with standby assist Transfer Type: Sit to Stand Transfer: Assistance Level: To/From;Bed;Minimal Assist (contact guard assist ) Transfer: Assistive Device: Roller Walker Transfers: Type Of Assistance: For Balance;For Safety Considerations End Of Activity Status: Up in Chair;Nursing Notified;Instructed Patient to Request Assist with Mobility;Instructed Patient to Use Call Light BALANCE: Balance Sitting Balance: Static Sitting Balance;Dynamic Sitting Balance;No UE Support; Standby Assist Standing Balance: Static Standing Balance;Dynamic Standing Balance;No UE support ;Minimal Assist (contact guard assist ) GAIT: Gait Gait Distance: 400 feet Gait: Assistance Level: Standby Assist Gait: Assistive Device: Roller Walker Gait: Descriptors: Pace: Slow;Decreased step length;No balance loss Comments: Patient ambulated 400 feet with roller walker and standby assist. No loss of balance. Activity Limited By: Complaint of Fatigue;Patient Choice ACTIVITY/EXERCISE: Activity / Exercise Sit Edge Of Bed: 6 minutes Sit Edge Of Bed Assist: Stand By Assist Stand At Bedside : 2 minutes Stand At Bedside Assist: Stand By Assist EDUCATION: Education Persons Educated: Patient Patient Barriers To Learning: None Noted Teaching Methods: Verbal Instruction Patient Response: Verbalized Understanding Topics: Plan/Goals of PT Interventions;Use of Assistive Device/Orthosis; Mobility Progression;Safety Awareness;Up with Assist Only;Importance of Increasing Activity;Ambulate With Nursing;Recommend Continued Therapy ASSESSMENT/PROGRESS: Assessment/Progress Impaired Mobility Due To: Pain;Decreased Activity Tolerance;Post Surgical Changes Assessment/Progress: Should Improve w/ Continued PT AM-PAC 6 Clicks Basic Mobility Inpatient Turning from your back to your side while in a flat bed without using bed rails : A Little Moving from lying on your back to sitting on the side of a flatbed without using bedrails : A Lot Moving to and from a bed to a chair (including a wheelchair): A Little Standing up from a chair using your arms (e.g. wheelchair, or bedside chair): A Little To walk in hospital room: A Little Climbing 3-5 steps with a railing: A Little Raw Score: 17 Standardized (T-scale) Score: 39.67 Basic Mobility CMS 0-100%: 43.83 CMS G Code Modifier for Basic Mobility: CK GOALS: Goals Goal Formulation: With Patient Time For Goal Achievement: 5 days, To, 7 days Pt Will Go Supine To/From Sit: Independently Pt Will Transfer Sit to Stand: Independently Pt Will Ambulate: Greater than 200 Feet, w/ No Device, Independently Pt Will Go Up / Down Stairs: 3-5 Stairs, w/ Stand By Assist PLAN: Plan Treatment Interventions: Mobility Training;Strengthening;Balance Activities; Endurance Training Plan Frequency: 5 Days per Week Comments: Continue to increase ambulation distance. Wean from roller walker when epidural pulled. Trial stairs. RECOMMENDATIONS: PT Discharge Recommendations PT Discharge Recommendations: Home with Assistance Equipment Recommendations: Patient owns necessary equipment Recommend ongoing assistance for: In and out of house;Bed mobility Therapist: Keila Pillai, PT Date: 07/05/2017 G-Codes: Mobility G8978 Current Status: 40-59% Impairment G8979 Goal Status: 1-19% Impairment Based on above evaluation and clinical judgment. * Reina Meadows MD - 07/05/2017 7:32 AM SYRUP [employer] SUPERVISOR Formatting of this note may be different from the original. ASSESSMENT: Rosanne Go is a 67 y.o. 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 LOS: 1 day PLAN: will discuss plan with staff surgeon - Dr. Meadows - Pain control: PCEA, tylenol, fentanyl breakthrough - Diet/FEN: CLD, mIVF - GI: bowel regimen, PPI, zofran prn - : Maintain esteban catheter - Heme/ID: afebrile. Hgb 9.7 (11.3); WBC 6.9 (11.5) - OOB/Amb - Dispo: Continue inpatient care Prophylaxis Review: - DVT: Heparin, SCD's - GI: No - Catheter: Yes - Abx: Yes Adrian Henson MD PGY-1 Urology Please page urology director of extension work with questions SUBJECTIVE: Overnight events: No acute events overnight. Pain well controlled on current regimen. Tolerating NPO without nausea or emesis. Has not ambulated. Breathing treatments overnight, improved this morning. OBJECTIVE: Vital Signs: Most Recent Vital Signs: Past 24 Hours BP: 127/57 (07/05 230) Temp: 36.7 C (98.1 F) (07/05 230) Pulse: 87 (07/05 230) Respirations: 16 PER MINUTE (07/05 230) SpO2: 99 % (07/05 230) O2 Delivery: Nasal Cannula (07/05 230) Height: 156.2 cm (61.5") (07/04 1001) Weight: 83.6 kg (184 lb 4.9 oz) (07/04 1001) BP: (109-147)/(51-84) Temp: [36.3 C (97.3 F)-36.9 C (98.5 F)] Pulse: [76-97] Respirations: [12 PER MINUTE-23 PER MINUTE] SpO2: [95 %-100 %] O2 Delivery: Nasal Cannula General: Alert & oriented, no acute distress Pulm: non-labored on RA CV: Regular rate Abd: Soft, appropriately tender, non-distended. Incisions/Wounds: Appropriately tender to palpation. Midline incision dressed, nonsaturated Extremities: No edema, SCD's in place : Esteban catheter in place draining clear yellow urine Labs: Hematology Chemistry Recent Labs 07/05/17 0519 WBC 6.9 HGB 9.7* PLTCT 100* Recent Labs 07/05/17 0519 NA 141 K 4.2 CL 110 CO2 25 BUN 15 CR 0.70 GFR >60 GLU 132* CA 8.6 PO4 4.0 ATTESTATION I personally observed the resident performing the E/M, discussed case with resident, and concur with resident documentation of history, physical assessment and treatment plan unless otherwise noted. Staff name: Reina Meadows MD * Dominique Haynes, RT - 07/04/2017 9:25 PM [employer] SUPERVISOR Formatting of this note may be different from the original. RESPIRATORY THERAPY ADULT PROTOCOL EVALUATION RESPIRATORY PROTOCOL PLAN Medications Albuterol: MDI PRN;Neb Q6h While Awake & PRN Note: If indicated by protocol, medication orders will be placed by therapist. Procedures Vibrating PEP Therapy: Discontinued IPPB: Place a nursing order for "IS Q1h While Awake" for any of Lung Expansion indicators Oxygen/Humidity: O2 to keep SpO2 > 92% Monitoring: Pulse oximetry BID & PRN Comment: Advair BID PATIENT EVALUATION RESULTS Chart Review * Pulmonary Hx: Hx pulmonary disease, hx reactive or obstructive airway disease (PEFR & AM) OR regular home use of bronchodilators (AM) OR inhaled or systemic steroid use for lungs < or equal to 4 times/yr (AM) (Hx ashtma) * Surgical Hx: Thoracic or abdominal surgery/injury (LE) (kidney repair) * Chest X-Ray: Clear OR not available (none this admission) * PFT/Oxygenation: FEV1, PEFR 70-80% OR Pa02 70-80 RA OR Sp02 92-95% (95% SB --- pt request O2 for comfort) Patient Assessment * Respiratory Pattern: Regular pattern and rate OR good chest excursion with deep breathing * Breath Sounds: Clear apically, but diminished in bases (LE) OR CHF related crackles (02) (oximetry) * Cough / Sputum: Strong, effective cough OR nonproductive * Mental Status: Alert, oriented, cooperative * Activity Level: Ambulatory with assistance Priority Index Total Points: 9 Points * Priority Index: 1+ PRIORITY INDEX GUIDELINES* Priority Points 1 0-9 points 2 9-18 points 3 > 18 points + Pulm Dx or Home Rx *Higher points indicate higher acuity. Therapist: Dominique Da Silva RT Date: 07/04/2017 Burrell AC=Airway clearance AM=Aerosolized medication BA=[place] aerosol DB&C=Deep breathe & cough FEV1=Forced expiratory volume in first second) IC=Inspiratory capacity LE=Lung expansion MDI=Metered dose inhaler Neb=Nebulizer O2=Oxygen Oxim=Oximetry PEFR=Peak expiratory flow rate DOORKEEPER=Rapid Response Team * Faith Medina, RN - 07/04/2017 7:01 PM [employer] SUPERVISOR Pt admitted onto unit accompanied by transport around 1800. Patient transferred to the bed from cart with minimal assistance. Pt tolerated without any difficulties. Belongings at bedside. Orders reviewed and implemented as appropriate. Pt oriented to surroundings. Call light within reach. Plan of care reviewed. Will continue to monitor patient needs. * Clifford Perez, RT - 07/04/2017 6:59 PM [employer] SUPERVISOR Formatting of this note may be different from the original. RESPIRATORY THERAPY ADULT PROTOCOL EVALUATION RESPIRATORY PROTOCOL PLAN Medications Albuterol: MDI PRN;Neb Q6h While Awake & PRN Note: If indicated by protocol, medication orders will be placed by therapist. Procedures Vibrating PEP Therapy: TID IPPB: Place a nursing order for "IS Q1h While Awake" for any of Lung Expansion indicators Oxygen/Humidity: O2 to keep SpO2 > 92% Monitoring: Pulse oximetry BID & PRN Comment: Advair BID PATIENT EVALUATION RESULTS Chart Review * Pulmonary Hx: Hx pulmonary disease, hx reactive or obstructive airway disease (PEFR & AM) OR regular home use of bronchodilators (AM) OR inhaled or systemic steroid use for lungs < or equal to 4 times/yr (AM) * Surgical Hx: Thoracic or abdominal surgery/injury (LE) * Chest X-Ray: Clear OR not available * PFT/Oxygenation: FEV1, PEFR < 70% OR Pa02 < 70 RA OR Sp02 <92% RA OR Fi02 > 0.21 to keep Sp02 > 92% OR < 24 hours post-op (02 & oxim) OR chronic C02 retention (C02) Patient Assessment * Respiratory Pattern: Regular pattern and rate OR good chest excursion with deep breathing * Breath Sounds: Wheezes (PEFR & AM) OR stridor (contact MD) OR rhonchi (AC) * Cough / Sputum: Good effective cough OR occasional or minimal sputum OR thin sputum * Mental Status: Alert, oriented, cooperative * Activity Level: Ambulatory with assistance Priority Index Total Points: 14 Points * Priority Index: 2+ PRIORITY INDEX GUIDELINES* Priority Points 1 0-9 points 2 9-18 points 3 > 18 points + Pulm Dx or Home Rx *Higher points indicate higher acuity. Therapist: Clifford Perez, RT Date: 07/04/2017 Burrell AC=Airway clearance AM=Aerosolized medication BA=[place] aerosol DB&C=Deep breathe & cough FEV1=Forced expiratory volume in first second) IC=Inspiratory capacity LE=Lung expansion MDI=Metered dose inhaler Neb=Nebulizer O2=Oxygen Oxim=Oximetry PEFR=Peak expiratory flow rate DOORKEEPER=Rapid Response Team in this encounter H&P Notes * Nakul Alvarez MD - 07/04/2017 10:20 AM [employer] SUPERVISOR Formatting of this note may be different from the original. [facility] H&P 07/04/2017 Patient: Rosanne Tejada Admission Date: 07/04/2017, LOS: 0 days Admission Diagnosis: Obstruction of left ureteropelvic junction (UPJ) [N13.5] ASSESSMENT: 67 y.o. 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 Presents for surgery today. PLAN: -To OR for L nicole-nephrectomy -NPO for surgery -Consented -Cleared by Hematology and Cardiology Discussed and formulated plan of care with staff surgeon, Dr. Alvarez. ATTESTATION I personally performed the burrell portions of the E/M visit, discussed case with resident and concur with resident documentation of history, physical exam, assessment, and treatment plan unless otherwise noted. Patient here for a left open nephrectomy of the left moiety of a horseshoe kidney. The left moiety is non-functioning. All risks and benefits of the procedure were discussed in depth. All questions answered. Consent on chart. Patient marked. Ready for OR. Staff name: Nakul Alvarez MD Date: 07/04/2017 __ HPI: Rosanne Go is a 67 y.o. 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 No changes in medical history since last clinic visit. Ready for OR today. Past Medical History: Diagnosis Date Arthritis RA Asthma Blood clotting disorder (HCC) Heart disease Hypertension Liver disease fatty Other emphysema (HCC) Seizure (HCC) most recent 12/2016 Urinary tract infection Past Surgical History: Procedure Laterality Date COARCTATION OF AORTA REPAIR 1969 HX HYSTERECTOMY 1986 HX ROTATOR CUFF REPAIR Left 2003 AORTA SURGERY 05/2011 valve replacement KNEE REPLACEMENT Left 05/2016 HX HEART CATHETERIZATION HX TUBAL LIGATION KNEE ARTHROSCOPY 1996;1997; 2011 OOPHORECTOMY URETER STENT PLACEMENT Left 01/09; 06/20/15; 12/28/15; 07/16/16;09/16/16; 01/20/17; 06/03/17 Medications: No current facility-administered medications on file prior to encounter. Current Outpatient Prescriptions on File Prior to Encounter Medication Sig Dispense Refill docusate (COLACE) 100 mg capsule Take 100 mg by mouth daily. doxazosin (CARDURA) 8 mg tablet Take 8 mg by mouth at bedtime daily. furosemide (LASIX) 40 mg tablet Take 40 mg by mouth daily as needed. Indications: Edema lisinopril-hydrochlorothiazide (PRINZIDE, ZESTORETIC) 20-12.5 mg tablet Take 0.5 tablets by mouth every morning. oxybutynin XL (DITROPAN XL) 15 mg tablet Take 15 mg by mouth daily as needed. Indications: INCREASED URINARY FREQUENCY potassium chloride SR (K-DUR) 10 mEq tablet Take 20 mEq by mouth daily as needed. Take with a meal and a full glass of water. rosuvastatin (CRESTOR) 10 mg tablet Take 10 mg by mouth at bedtime daily. vitamins, B complex tab Take 1 tablet by mouth daily. vitamins, multi PED chewable Chew by mouth daily. Allergies: Benzonatate; Sulfamethoxazole-trimethoprim; Anaprox [naproxen sodium ]; Arthrotec [diclofenac-misoprostol]; Darvocet [propoxyphene n-acetaminophen]; Diclofenac; Hydrocodone; Indomethacin; Macrobid [nitrofurantoin monohyd/m-cryst] ; Misoprostol; Oxycodone; Tolectin [tolmetin]; and Trimethoprim Social History Social History Marital status: Spouse name: N/A Number of children: N/A Years of education: N/A Occupational History Not on file. Social History Main Topics Smoking status: Former Smoker Packs/day: 2.00 Years: 15.00 Types: Cigarettes Quit date: 1987 Smokeless tobacco: Never Used Alcohol use No Comment: 2-3 yearly Drug use: No Sexual activity: Not Currently Partners: Male Other Topics Concern Not on file Social History Narrative Family History Problem Relation Age of Onset Anesthetic Complication Mother Bleeding Disorders Mother Cancer Mother Heart Attack Mother Heart Disease Mother Hypertension Mother Kidney Disease Mother Hypertension Father Diabetes Brother Hypertension Brother Cancer Maternal Grandmother Diabetes Maternal Grandmother Hypertension Maternal Grandmother ROS: Complete ROS performed. Pertinent items listed in HPI and PMH. Otherwise negative. Vitals: Vital Signs: Last Filed In 24 Hours Vital Signs: 24 Hour Range BP: 140/56 (07/041) Temp: 36.6 C (97.9 F) (07/041) Pulse: 94 (07/04 1001) Respirations: 23 PER MINUTE (07/04 1001) SpO2: 97 % (07/041) O2 Delivery: None (Room Air) (07/04 1001) SpO2 Pulse: 94 (07/04 1001) Height: 156.2 cm (61.5") (07/04 1001) BP: (140)/(56) Temp: [36.6 C (97.9 F)] Pulse: [94] Respirations: [23 PER MINUTE] SpO2: [97 %] O2 Delivery: None (Room Air) Intake/Output: No intake or output data in the 24 hours ending 07/04/17 1020 Physical Exam: GEN: Well nourished, A&O, NAD HEENT: NCAT, EOMI, no scleral icterus CHEST: CTAB, non-labored, no adventitious sounds CV: RRR, palpable symmetric radial pulses ABD: S/NT/ND/+BS EXT: No C/C/E Lab/Radiology/Other Diagnostic Tests: Recent Labs 07/03/17 1235 HGB 12.6 HCT 37.5 WBC 6.2 PLTCT 159 Bart Seay Jr, M.D. PGY-5 Urology Pager: [phone] in this encounter Miscellaneous Notes * Care Plan - Madeleine Estrada RN - 07/08/2017 8:21 AM [employer] SUPERVISOR Problem: Discharge Planning Goal: Participation in plan of care Outcome: Goal Achieved Date Met: 07/08/17 Pt aware of discharge today Problem: Pain Goal: Management of pain Outcome: Goal Achieved Date Met: 07/08/17 Pt has no c/o pain upon discharge * Care Plan - Mechelle Yee RN - 07/07/2017 4:36 PM [employer] SUPERVISOR Problem: Discharge Planning Goal: Participation in plan of care Outcome: Goal Ongoing Pt actively participated in dc planning Problem: Pain Goal: Management of pain Outcome: Goal Ongoing Pt able to rate pain using 0/10 scale * Case Mgmt DC Plan - Soheila Pisano - 07/07/2017 1:33 PM [employer] SUPERVISOR Formatting of this note may be different from the original. Case Management Admission Assessment NAME:Rosanne Go :1949 AGE: 67 y.o. ADMISSION DATE: 07/04/2017 DAYS ADMITTED: LOS: 3 days Todays Date: 07/07/2017 Source of Information: patient and spouse Plan Plan: CM Assessment, No Further Intervention Required, Discharge Planning for Home Anticipated NCM reviewed EMR and discussed in interdisciplinary huddle. NCM met with patient at bedside to discuss discharge planning. Pt is POD# 3 from open nephrectomy Anticipate discharge home later today without CM needs Emergency Contact Extended Emergency Contact Information Primary Emergency Contact: Adrian Go [facility] Mobile Relation: Spouse DPOA no Transportation Does the patient need discharge transport arranged?: No Transportation Name, Phone and Availability #1: Adrian [phone] Does the patient use Medicaid Transportation?: No Expected Discharge Expected Discharge Date: 07/07/17 Living Situation Prior to Admission ? Living Arrangements Type of Residence: Home, independent Living Arrangements: Spouse/significant other Bathroom Shower / Tub: Walk-in Shower Bathroom Toilet: Standard Bathroom Equipment: Grab Bars in Shower, Built-in Seat in Shower, Hand-Held Shower Bathroom Accessibility: Accessible via Walker Support Systems: Spouse/Partner Assistance Needed: No Home Care Services: No ? Level of Function Prior level of function: Independent ? Cognitive Abilities Cognitive Abilities: Alert and Oriented, Engages in problem solving and planning , Participates in decision making Financial Resources ? Coverage Primary Insurance: Medicare Secondary Insurance: Commercial insurance ? Source of Income Source Of Income: Other [facility] income ? Financial Assistance Needed? no Current/Previous Services ? PCP Aaron Lora ? DME DME at home: None ? Home Health Receiving home health: In the past ? HD or PD Undergoing hemodialysis or peritoneal dialysis: No ? Tube/Enteral Feeds Receive tube/enteral feeds: No ? Infusion Receive infusions: No ? Private Duty Private duty help used: No ? HCBS Home and community based services: No ? Vernon White Vernon White: N/A ? Hospice Hospice: No ? Outpatient Therapy PT: No OT: No GERMINATION WORKER: No ? SNF/NH SNF: No NH: No ? IPR IPR: No ? LTACH LTACH: No ? Acute Hospital Stay Acute Hospital Stay: In the past Was patient's stay within the last 30 days?: No Psychosocial Needs ? Mental Health Mental Health History: No ? Substance History History Smoking Status Former Smoker Packs/day: 2.00 Years: 15.00 Types: Cigarettes Quit date: 1987 Smokeless Tobacco Never Used History Alcohol Use No Comment: 2-3 yearly History Drug Use No ? Abuse/Sexual Assault Are You Alone With The Patient?: No Have You Ever Been Hit, Hurt Or Threatened In Any Way In The Past 5 Years?: No Nurse Suspected Abuse?: No Soheila Pisano RN, BSN, [facility] [phone] * Care Plan - Ariella Harrison RN - 07/06/2017 10:00 AM [employer] SUPERVISOR Problem: Pain Goal: Management of pain Outcome: Goal Ongoing Pt states she has abd pain 10/04. RN encouraged pt to use epidural. Will cont to monitor. * Anesthesia Post Op Day 1 - Chaparro Kenyon SRNA - 07/04/2017 9:18 PM [employer] SUPERVISOR Formatting of this note may be different from the original. Anesthesia Follow-Up Evaluation: Post-Procedure Day One Name: Rosanne Go : 1950 Age: 67 y.o. Sex: female Procedure Date: 07/04/2017 Procedure: Procedure(s) with comments: OPEN NEPHRECTOMY OF LEFT MOIETY OF THE HORSESHOE KIDNEY - CASE LENGTH 4 HOURS Physical Assessment Height: 156.2 cm (61.5") Weight: 83.6 kg (184 lb 4.9 oz) Vital Signs (Last Filed in 24 hours) BP: 119/56 (07/04 1852) Temp: 36.3 C (97.3 F) (07/04 1852) Pulse: 88 (07/04 1852) Respirations: 15 PER MINUTE (07/04 1852) SpO2: 98 % (07/04 1852) O2 Delivery: Nasal Cannula (07/04 1852) SpO2 Pulse: 86 (07/040) Height: 156.2 cm (61.5") (07/04 100) Patient History Allergies Allergies Allergen Reactions Benzonatate ANAPHYLAXIS and RASH Sulfamethoxazole-Trimethoprim SHORTNESS OF BREATH and STOMACH UPSET Anaprox [Naproxen Sodium] SEE COMMENTS "sores in mouth & nose" Arthrotec [Diclofenac-Misoprostol] STOMACH UPSET Darvocet [Propoxyphene N-Acetaminophen] STOMACH UPSET Diclofenac STOMACH UPSET Hydrocodone STOMACH UPSET Indomethacin STOMACH UPSET Macrobid [Nitrofurantoin Monohyd/M-Cryst] STOMACH UPSET Misoprostol STOMACH UPSET Oxycodone STOMACH UPSET Tolectin [Tolmetin] SEE COMMENTS "affected kidneys" Trimethoprim STOMACH UPSET Medications Scheduled Meds: acetaminophen (TYLENOL) tablet 1,000 mg 1,000 mg Oral TID albuterol 0.5% (PROVENTIL; VENTOLIN) nebulizer solution 2.5 mg 2.5 mg Inhalation TID & PRN bisacodyl (DULCOLAX) rectal suppository 10 mg 10 mg Rectal BID ceFAZolin (ANCEF) IVP 2 g 2 g Intravenous Q8H* doxazosin (CARDURA) tablet 8 mg 8 mg Oral QHS fluticasone/salmeterol (ADVAIR DISKUS) 250/50 mcg inhalation disk 1 puff 1 puff Inhalation BID heparin (porcine) PF syringe 5,000 Units 5,000 Units Subcutaneous BID loratadine (CLARITIN) tablet 10 mg 10 mg Oral QDAY phenytoin SR (DILANTIN) capsule 400 mg 400 mg Oral QHS polyethylene glycol 3350 (MIRALAX) packet 17 g 1 packet Oral BID rosuvastatin (CRESTOR) tablet 10 mg 10 mg Oral QHS senna/docusate (SENOKOT-S) tablet 1 tablet 1 tablet Oral BID Continuous Infusions: bupivacaine CRITICAL CARE NURSE SPECIALIST 0.1% in NS 50mL epidural infusion syr (std conc) lactated ringers infusion 100 mL/hr at 07/04/17 1611 sodium chloride 0.9 % infusion 1,000 mL (07/04/17 1014) PRN and Respiratory Meds:albuterol Q6H PRN, diphenhydrAMINE Q4H PRN, fentaNYL citrate PF Q1H PRN, hyoscyamine Q4H PRN, lidocaine PF PRN, naloxone PRN, ondansetron (ZOFRAN) IV Q6H PRN, ondansetron (ZOFRAN) IV Q6H PRN, oxyCODONE Q4H PRN Diagnostic Tests Hematology: Lab Results Component Value Date HGB 11.3 07/04/2017 HCT 33.7 07/04/2017 PLTCT 124 07/04/2017 WBC 11.5 07/04/2017 MCV 86.6 07/04/2017 MCH 29.0 07/04/2017 MCHC 33.5 07/04/2017 MPV 7.4 07/04/2017 RDW 13.4 07/04/2017 General Chemistry: Lab Results Component Value Date NA 141 06/10/2017 K 4.2 06/10/2017 CL 105 06/10/2017 CO2 28 06/10/2017 GAP 8 06/10/2017 BUN 19 06/10/2017 CR 0.88 06/10/2017 GLU 107 06/10/2017 CA 9.8 06/10/2017 ALBUMIN 4.4 06/10/2017 TOTBILI 0.3 06/10/2017 Coagulation: Lab Results Component Value Date PTT 30.7 06/10/2017 INR 1.0 06/10/2017 Follow-Up Assessment Patient location during evaluation: floor Anesthetic Complications: Anesthetic complications: The patient did not experience any anesthestic complications. Pain: Score: 2 Management:satisfactory to patient Level of Consciousness: awake and alert Hydration:acceptable Airway Patency: patent Respiratory Status: spontaneous ventilation, acceptable and nasal cannula Cardiovascular Status:acceptable, blood pressure returned to baseline, hemodynamically stable and stable Regional/Neuroaxial: Epidural in place * Operative Report (DICTATED ONLY) - Nakul Alvarez MD - 07/04/2017 3:32 PM [facility] [address] [place], [place] [address] PATIENT NAME: ROSANNE GO MR#/PT#: [id number] Page 3 OPERATIVE REPORT DATE OF OPERATION: 07/04/2017 SURGEON: Nakul Alvarez MD MANAGER PURCHASING(S): Bart Seay MD PREOPERATIVE DIAGNOSIS: Left ureteropelvic junction obstruction with nonfunctioning left kidney. POSTOPERATIVE DIAGNOSIS: Same. OPERATIVE PROCEDURE: Open nephrectomy of the left moiety of a left horseshoe kidney. ANESTHESIA: General. INDICATIONS FOR OPERATIVE PROCEDURE: The patient is a 67-year-old female with a history of a horseshoe kidney with a left UPJ obstruction resulting in a nonfunctioning left moiety of the horseshoe kidney. She was having recurrent pain and infections despite a ureteral stent and presents today for removal of the left half of her horseshoe kidney. DESCRIPTION AND FINDINGS OF OPERATIVE PROCEDURE: Findings: Left moiety atrophic with ureteral stent in place. After informed consent was obtained, the patient was identified in the preoperative holding area. She was taken back to the operative suite and placed on the table in supine position over the kidney break. A time-out was performed confirming the correct patient and planned procedure. She received 2 g of IV Ancef prior to the smooth induction of general endotracheal anesthesia. She was then left in the supine position over the break of the table and the table was flexed into the flexed position. The patient was then prepped and draped in the usual sterile fashion and a Esteban catheter was placed under sterile technique. We then made a midline incision from the xiphoid process to about 4 cm below the umbilicus. We used a combination of blunt and sharp dissection to carry our dissection down through the subcutaneous fat and into the fascia and furthermore into the peritoneum. Once we had entered the peritoneum, the patient had a number of adhesions from her prior hysterectomy and we had to take down using Metzenbaum scissors. Once this was done, and we were able to mobilize the bowel, we then turned our attention to the white line of Toldt. On the left side, we then used Bovie electrocautery and blunt and sharp dissection to incise the white line of Toldt from the level of the iliac arteries all the way up to the spleen. This allowed us to reflect the colon medially as once we were able to do this, we placed our Bookwalter retractor to adequately retract our bowel. We then continued our dissection to expose the retroperitoneum and the left moiety of a horseshoe kidney. We encountered the gonadal vein as well as the ureter, which we then traced up until it led us to the horseshoe kidney. We then carefully dissected out around the horseshoe kidney. There were a number of aberrant arteries and veins, which we carefully dissected out and ligated along our way. The majority of the dissection was done starting at the inferior pole of the kidney and then carrying it posteriorly, and then superiorly and saving the medial portion from last. Once we were able to identify the hilum, which was at the superior medial portion of the left moiety, we used a 45 load stapler times 2 to take the hilum en bloc. The ureter was then opened and the ureteral stent was removed and the ureter was ligated. After this was complete, we were able to completely free off the left moiety from the side of the aorta, and then we identified our isthmus, which was the last remaining attachment. We then used another 45 load stapler to staple across the isthmus, freeing up the left moiety from the remaining right portion of the horseshoe kidney. After this was complete, the specimen was then removed and handed off the table. We then irrigated the wound copiously with 2 L of saline solution. There were no active bleeders noted. The staple lines appeared completely hemostatic. We placed Floseal over all of our staple lines as well as other small vessels that we had clipped. There was great hemostasis achieved. At this point, we then returned our colon into its anatomic position as well as small bowel. We then proceeded with our closure using a number 1 PDS in a running fashion from the superior aspect and inferior aspect of the patient's wound to close the fascia. We then used 3-0 Vicryl in an interrupted fashion to close the subcuticular fat. We then used shayy to close the skin. No drain was left in place. We then placed a sterile dressing. The patient was awoken from anesthesia, transferred to the PACU in stable condition. She tolerated the procedure well. There were no complications. All counts were correct at the end of the procedure. Dr. Alvarez was present and scrubbed for all burrell portions of the procedure. ESTIMATED BLOOD LOSS: 400 mL. SPECIMENS REMOVED: Left kidney for routine. COMPLICATIONS: None. IMPLANTS: None. DRAINS: Esteban catheter, 30 mL. DISPOSITION: PACU, stable. Nakul Alvarez MD Dictated by: Bart Seay MD / MED /[id number] cc: - Nakul Alvarez MD * Procedures (Immed Post or Bedside) - Nakul Alvarez MD - 07/04/2017 3:17 PM [employer] Formatting of this note may be different from the original. Brief Operative Note Name: Rosanne Go is a 67 y.o. 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 Estimated Blood Loss: 400 cc. Specimen(s) Removed/Disposition: ID Type Source Tests Collected by Time Destination 1 : LEFT KIDNEY FOR ROUTINE Tissue Kidney, Left SURGICAL PATHOLOGY Nakul Alvarez MD 07/04/2017 1409 Complications: None Implants: None Drains: Esteban Catheter: 30 mL Disposition: PACU - stable Bart Seay MD Pager [phone] ATTESTATION I performed this procedure with a resident. Staff name: Nakul Alvarez MD Date: 07/06/2017 in this encounter Plan of Treatment Name Priority Associated Diagnoses Order Schedule SURGICAL PATHOLOGY Routine Obstruction of left ONCE for 1 Occurrences ureteropelvic junction starting 07/04/2017 (UPJ) BASIC METABOLIC PANEL Routine Obstruction of left Expected: 07/17/2017 ureteropelvic junction (Approximate), Expires: (UPJ) 07/04/2018 as of this encounter Procedures Procedure Name Priority Date/Time Associated Diagnosis Comments OPEN NEPHRECTOMY OF LEFT 07/04/2017 Obstruction of left MOIETY OF THE HORSESHOE 11:05 AM [employer] ureteropelvic junction KIDNEY (UPJ) in this encounter Results * PHOSPHORUS (07/08/2017 4:53 AM) Component Value Ref Range Phosphorus 2.6 2.0 - 4.0 MG/DL Specimen Performing Laboratory [facility] [address] [place] [address] * MAGNESIUM (07/08/2017 4:53 AM) Component Value Ref Range Magnesium 2.0 1.6 - 2.6 mg/dL Specimen Performing Laboratory [facility] [address] [place] [address] * BASIC METABOLIC PANEL (07/08/2017 4:53 AM) Component Value Ref Range Sodium 142 137 [...] Specimen Performing Laboratory [facility] [address] [place] [address] * CBC (07/08/2017 4:53 AM) Component Value Ref Range White Blood Cells [...] FL Specimen Performing Laboratory [facility] [address] [place] [id number] * PHOSPHORUS (07/07/2017 4:48 AM) Component Value Ref Range Phosphorus 2.8 2.0 - 4.0 MG/DL Specimen Performing Laboratory [facility] [address] [place] [address] * MAGNESIUM (07/07/2017 4:48 AM) Component Value Ref Range Magnesium 1.9 1.6 - 2.6 mg/dL Specimen Performing Laboratory [facility] [address] [place] [id number] * BASIC METABOLIC PANEL (07/07/2017 4:48 AM) Component Value Ref Range Sodium 140 137 - 147 MMOL/L Potassium 3.9 3.5 - 5.1 MMOL/L Chloride 107 98 - 110 MMOL/L CO2 27 21 - 30 MMOL/L Anion Gap 6 3 - 12 Glucose 99 70 - 100 MG/DL Blood Urea Nitrogen 6 (L) 7 - 25 MG/DL Creatinine 0.52 0.4 - 1.00 MG/DL Calcium 8.6 8.5 - 10.6 MG/DL eGFR Non >60 [...] questions. Specimen Performing Laboratory [facility] [address] [place] [address] * CBC (07/07/2017 4:48 AM) Component Value Ref Range White Blood Cells 5.6 4.5 - 11.0 K/UL RBC 2.81 (L) 4.0 - 5.0 M/UL Hemoglobin 8.5 (L) 12.0 - 15.0 GM/DL Hematocrit 23.8 (L) 36 - 45 % MCV 84.8 80 - 100 FL MCH 30.2 26 - 34 PG MCHC 35.6 32.0 - 36.0 G/DL RDW 13.9 11 - 15 % Platelet Count 92 (L) 150 - 400 K/UL MPV 7.0 7 - 11 FL Specimen Performing Laboratory [facility] [address] [place] [id number] * PHOSPHORUS (07/06/2017 4:18 AM) Component Value Ref Range Phosphorus 2.9 2.0 - 4.0 MG/DL Specimen Performing Laboratory [facility] [address] [place] [address] * MAGNESIUM (07/06/2017 4:18 AM) Component Value Ref Range Magnesium 2.0 1.6 - 2.6 mg/dL Specimen Performing Laboratory [facility] [address] [place] [id number] * BASIC METABOLIC PANEL (07/06/2017 4:18 AM) Component Value Ref Range Sodium 138 137 - 147 MMOL/L Potassium 4.5 3.5 - 5.1 MMOL/L Chloride 108 98 - 110 MMOL/L CO2 23 21 - 30 MMOL/L Anion Gap 7 3 - 12 Glucose 107 (H) 70 - 100 MG/DL Blood Urea Nitrogen 8 7 - 25 MG/DL Creatinine 0.59 0.4 - 1.00 MG/DL Calcium 8.8 8.5 [...] questions. Specimen Performing Laboratory [facility] [address] [place] [id number] * CBC (07/06/2017 4:18 AM) Component Value Ref Range White Blood Cells 6.0 4.5 - 11.0 K/UL RBC 2.98 (L) 4.0 - 5.0 M/UL Hemoglobin 9.1 (L) 12.0 - 15.0 GM/DL Hematocrit 25.8 (L) 36 - 45 % MCV 86.6 80 - 100 FL MCH 30.5 26 - 34 PG MCHC 35.3 32.0 - 36.0 G/DL RDW 14.0 11 - 15 % Platelet Count 86 (L) 150 - 400 K/UL MPV 7.2 7 - 11 FL Specimen Performing Laboratory [facility] [address] [place] [address] * PHOSPHORUS (07/05/2017 5:19 AM) Component Value Ref Range Phosphorus 4.0 2.0 - 4.0 MG/DL Specimen Performing Laboratory [facility] [address] [place] [address] * MAGNESIUM (07/05/2017 5:19 AM) Component Value Ref Range Magnesium 1.9 1.6 - 2.6 mg/dL Specimen Performing Laboratory [facility] [address] [place] [address] * BASIC METABOLIC PANEL (07/05/2017 5:19 AM) Component Value Ref Range Sodium 141 137 - 147 MMOL/L Potassium 4.2 3.5 - 5.1 MMOL/L Chloride 110 98 - 110 MMOL/L CO2 25 21 - 30 MMOL/L Anion Gap 6 3 - 12 Glucose 132 (H) 70 - 100 MG/DL Blood Urea Nitrogen 15 7 - 25 MG/DL Creatinine 0.70 0.4 - 1.00 MG/DL Calcium 8.6 8.5 - 10.6 MG/DL eGFR Non >60 [...] questions. Specimen Performing Laboratory [facility] [address] [place] [id number] * CBC (07/05/2017 5:19 AM) Component Value Ref Range White Blood Cells 6.9 4.5 - 11.0 K/UL RBC 3.24 (L) 4.0 - 5.0 M/UL Hemoglobin 9.7 (L) 12.0 - 15.0 GM/DL Hematocrit 27.6 (L) 36 - 45 % MCV 85.2 80 - 100 FL MCH 30.0 26 - 34 PG MCHC 35.2 32.0 - 36.0 G/DL RDW 13.6 11 - 15 % Platelet Count 100 (L) 150 - 400 K/UL MPV 7.6 7 - 11 FL Specimen Performing Laboratory Blood [facility] [address] [place] [address] * CBC (07/04/2017 3:58 PM) Component Value Ref Range White Blood Cells 11.5 (H) 4.5 - 11.0 K/UL RBC 3.89 (L) 4.0 - 5.0 M/UL Hemoglobin 11.3 (L) 12.0 - 15.0 GM/DL Hematocrit 33.7 (L) 36 - 45 % MCV 86.6 80 - 100 FL MCH 29.0 26 - 34 PG MCHC 33.5 32.0 - 36.0 G/DL RDW 13.4 11 - 15 % Platelet Count 124 (L) 150 - 400 K/UL MPV 7.4 7 - 11 FL Specimen Performing Laboratory [facility] [address] [place] [address] * SURGICAL PATHOLOGY (07/04/2017 2:17 PM) Component Value Ref Range PATHOLOGY REPORT [facility] [email or web address] Department of Pathology and Laboratory Medicine [address] [place] [address] Surgical Pathology Office: [phone] SURGICAL PATHOLOGY REPORT NAME: ROSANNE GO Andrei SURG PATH #: [id number] MR #: [id number] SPECIMEN CLASS: SR BILLING #: [id number] ALT ID #: LOCATION: [facility] DATE OF PROCEDURE: 07/04/2017 AGE: 67 SEX: F DATE RECEIVED: 07/04/2017 : 1950 TIME RECEIVED: 14:17 PHYSICIAN: NAKUL ALVAREZ DATE OF REPORT: 07/07/2017 COPY TO: DATE [...] material indicated in this report. +++ +++ quintenw/07/07/2017 ################################################## ###################### Material Received: A: left kidney [...] lesions are grossly identified. Uninvolved renal parenchyma: [place]-damian and grainy Adrenal gland: No Lymph nodes identified: No [employer] sections of the specimen are submitted as follows: A1 Vascular margins. A2 Ureteral margin (inked black) and additional ureteral resection directly adjacent to ureteral margin. A3 [employer] sections of renal pelvis in relationship to renal parenchyma. A4 [employer] section of renal pelvis in relationship to renal sinus fat and renal parenchyma. A5-A6 [employer] sections of renal pelvis, three fragments per cassette. 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 - Pain management adjuvant therapy for Epidural PCEA. Given 07/07/2017 1,000 mg 20:47 [employer] Given 07/08/2017 1,000 mg 08:13 [employer] albuterol 0.083% (PROVENTIL; VENTOLIN) Given 07/07/2017 2.5 mg nebulizer solution 2.5 mg 12:37 [employer] 2.5 mg, Inhalation, RT THREE TIMES DAILY AND PRN, First dose on Fri07/04/17 at 2230, Until Discontinued, When administered by RT, will be per RT policy. Given 07/07/2017 2.5 mg 17:07 [employer] Given 07/08/2017 2.5 mg 05:25 [employer] albuterol 0.5% (PROVENTIL; VENTOLIN) Given 07/04/2017 2.5 mg nebulizer solution 2.5 mg 18:52 [employer] 2.5 mg, Inhalation, RT EVERY 6 HOURS PRN, Starting Fri07/04/17 at 1545, Until Fri07/04/17 at 1900, Shortness of Breath, Wheezing, When administered by RT, will be per RT policy. bisacodyl (DULCOLAX) rectal suppository Given 07/05/2017 10 mg 10 mg 15:59 [employer] 10 mg, Rectal, TWICE DAILY, First dose on Fri07/04/17 at 2100, Until Discontinued, Hold for loose stools Given 07/06/2017 10 mg 08:52 [employer] bupivacaine CRITICAL CARE NURSE SPECIALIST 0.1% in NS 50mL epidural Given - New 07/06/2017 infusion syr (std conc) Bag 22:27 [employer] Epidural, CRITICAL CARE NURSE SPECIALIST, Starting Fri07/04/17 at 1530, Until Fri07/07/17 at 0919, --FOR EPIDURAL ADMINISTRATION ONLY -- Administer only with CRITICAL CARE NURSE SPECIALIST Pump -- Only Patient may push CRITICAL CARE NURSE SPECIALIST button Prescription change can only be made by Anesthesiology Pain Service. NOTE: This is a HIGH ALERT Medication. Given - New Bag 07/07/2017 02:36 [employer] Given - New Bag 07/07/2017 06:54 [employer] ceFAZolin (ANCEF) IVP 2 g Given 07/04/2017 2 g 2 g, Intravenous, EVERY 8 HOURS, 3 21:22 [employer] doses, First dose on Fri07/04/17 at 2000, Last dose on Fri07/05/17 at 1200, IV PUSH -- RECONSTITUTE each 1 g vial by adding 10 mL 0.9% NACL Given 07/05/2017 2 g 05:48 [employer] Given 07/05/2017 2 g 12:00 [employer] diphenhydrAMINE (BENADRYL) injection Given 07/05/2017 12.5 mg 12.5 mg 22:08 [employer] 12.5 mg, Intravenous, EVERY 4 HOURS PRN, Starting Fri07/04/17 at 1521, Until Fri07/08/17 at 1340, Itching Injectable, Diphenhydramine is not to be used as a sedative. Hold medication if patient is sedated. doxazosin (CARDURA) tablet 8 mg Given 07/05/2017 8 mg 8 mg, Oral, AT BEDTIME DAILY, First dose 20:18 [employer] on Fri07/04/17 at 2100, Until Discontinued, Admission/Obs/Extended Recovery Given 07/06/2017 8 mg 22:13 [employer] Given 07/07/2017 8 mg 21:49 [employer] fentaNYL citrate PF (SUBLIMAZE) Given 07/04/2017 50 mcg injection 50 mcg 16:20 [employer] 50 mcg, Intravenous, EVERY 5 MIN PRN, Starting Fri07/04/17 at 1521, Until Fri07/04/17 at 1714, Pain Injectable, For Pain Score 7-10, Maximum total dose of 200 mcg Hold for RR < 10 Given 07/04/2017 50 mcg 16:44 [employer] Given 07/04/2017 50 mcg 16:55 [employer] fluticasone/salmeterol (ADVAIR DISKUS) Given 07/07/2017 1 puff 250/50 mcg inhalation disk 1 puff 05:54 [employer] 1 puff, Inhalation, RT TWICE DAILY, First dose on Fri07/04/17 at 2015, Until Discontinued, When administered by RT, will be per RT policy. Given 07/07/2017 1 puff 20:36 [employer] Given 07/08/2017 1 puff 05:25 [employer] heparin (porcine) PF syringe 5,000 Units Given 07/06/2017 5,000 Units Abdominal 5,000 Units, Subcutaneous, TWICE DAILY, 08:52 [employer] Tissue First dose on Fri07/04/17 at 2100, Until Discontinued, NOTE: This is a HIGH ALERT Medication. Given 07/06/2017 5,000 Units Abdomen:RLQ 22:07 [employer] Given 07/07/2017 5,000 Units Abdominal 20:47 [employer] Tissue lactated ringers infusion Given - New 07/06/2017 100 mL/hr 1,000 mL, Intravenous, at 100 mL/hr, Bag 13:49 [employer] CONTINUOUS, Starting Fri07/04/17 at 1600, Until Fri07/07/17 at 1117, Admission/Obs/Extended Recovery Given - New Bag 07/06/2017 100 mL/hr 22:14 [employer] Given - New Bag 07/07/2017 100 mL/hr 06:51 [employer] loratadine (CLARITIN) tablet 10 mg Given 07/06/2017 10 mg 10 mg, Oral, DAILY, First dose on Fri 08:52 [employer] 07/04/17 at 1530, Until Discontinued, If pt taking po Given 07/07/2017 10 mg 08:10 [employer] Given 07/08/2017 10 mg 08:13 [employer] ondansetron (ZOFRAN) injection 4-8 mg Given 07/08/2017 4 mg 4-8 mg, Intravenous, EVERY 6 HOURS PRN, 05:02 [employer] Starting Fri07/04/17 at 1521, Until Fri07/08/17 at 0616, Nausea/Vomiting Injectable, Not to exceed 32 mg/day oxyCODONE (ROXICODONE, OXY-IR) tablet Given 07/07/2017 5 mg 5-10 mg 11:40 [employer] 5-10 mg, Oral, EVERY 4 HOURS PRN, Starting Fri07/04/17 at 1521, Until Fri07/08/17 at 1340, Pain PO Given 07/08/2017 10 mg 04:58 [employer] Given 07/08/2017 10 mg 11:02 [employer] phenytoin SR (DILANTIN) capsule 400 mg Given 07/05/2017 400 mg 400 mg, Oral, AT BEDTIME DAILY, First 20:17 [employer] dose on Fri07/04/17 at 2100, Until Discontinued, NOTE: PHARMACOKINETIC MONITORING Given 07/06/2017 400 mg 22:03 [employer] Given 07/07/2017 400 mg 20:46 [employer] polyethylene glycol 3350 (MIRALAX) Given 07/05/2017 17 g packet 17 g 11:51 [employer] 17 g (1 packet), Oral, TWICE DAILY, First dose on Fri07/04/17 at 2100, Until Discontinued, 8.5 GRAMS=0.5 PACKET 17 GRAMS=1 PACKET 34 GRAMS=2 PACKETS Given 07/05/2017 17 g 20:19 [employer] Given 07/06/2017 17 g 08:52 [employer] rosuvastatin (CRESTOR) tablet 10 mg Given 07/05/2017 10 mg 10 mg, Oral, AT BEDTIME DAILY, First 20:18 [employer] dose on Fri07/04/17 at 2100, Until Discontinued, Admission/Obs/Extended Recovery Given 07/06/2017 10 mg 22:03 [employer] Given 07/07/2017 10 mg 20:48 [employer] senna/docusate (SENOKOT-S) tablet 1 Given 07/06/2017 1 tablet tablet 22:03 [employer] 1 tablet, Oral, TWICE DAILY, First dose on Fri07/04/17 at 2100, Until Discontinued, Hold for loose stools Given 07/07/2017 1 tablet 08:10 [employer] Given 07/07/2017 1 tablet 20:47 [employer] sodium chloride 0.9 % infusion Given - New 07/04/2017 1,000 mL 20 mL/ hr 1,000 mL, 1,000 mL, Intravenous, at 20 Bag 10:14 [employer] mL/hr, CONTINUOUS, Starting Fri07/04/17 at 0945, Until 07/05/17 at 0913 Given - New Bag 07/04/2017 12:53 [employer] in this encounter
--- OUTSIDE RECORDS SUMMARY | 2017-07-12 15:01 | XMS REPORT | Encounter Summary ---
Author Author [facility] Organization [facility] Address Unknown Phone Unavailable Care Team Providers Care Permit Specialist Name Role Phone PCP Unavailable Reason for Visit * Auth/Cert Status Reason Specialty Diagnoses / Referred By Referred To Procedures Contact Contact Diagnoses Obstruction of left ureteropelvic junction (UPJ) Procedures [place] NEPHRECTOMY W/PRTL URETERECTOMY W/OPEN RIB RESCJ [place] NEPHRECTOMY PARTIAL NEPHRECTOMY Encounter Details Date Type Department Care Team Description 07/04/2017 Anesthesia Main Operating Room Jaylin Cowan MD [address] [facility] [address] [place] [address] [place] [address] [place], [place] [id number] Social History Tobacco Use Types Packs/Day Years Used Date Former Smoker Cigarettes 2 15 Quit: 1987 Smokeless Tobacco: Never Used Alcohol Use Drinks/Week oz/Week Comments No 2-3 yearly Sex Assigned at Date Recorded Not on file as of this encounter OR Notes * Anesthesia Postprocedure Evaluation - Juancarlos Parker MD - 07/04/2017 7:19 PM [facility] Post-Anesthesia Evaluation Name: Maribel Go : 1950 Age: 67 y.o. Sex: female Procedure Date: 07/04/2017 Procedure: Procedure(s) with comments: OPEN NEPHRECTOMY OF LEFT MOIETY OF THE HORSESHOE KIDNEY - CASE LENGTH 4 HOURS Surgeon: Surgeon(s): MD Bart Sutton, MD Post-Anesthesia Vitals BP: 119/56 (07/04 1852) Temp: 36.3 C (97.3 F) (07/04 1852) Pulse: 88 (07/04 1852) Respirations: 15 PER MINUTE (07/04 1852) SpO2: 98 % (07/04 1852) O2 Delivery: Nasal Cannula (07/04 1852) SpO2 Pulse: 86 (07/04 1700) Height: 156.2 cm (61.5") (07/04 1001) Post Anesthesia Evaluation Note Evaluation location: pre/post Patient participation: recovered; patient participated in evaluation Level of consciousness: alert Pain management: adequate Hydration: normovolemia Temperature: 36.0C - 38.4C Airway patency: adequate Perioperative Events Perioperative events: no Post-op nausea and vomiting: no PONV Postoperative Status Cardiovascular status: hemodynamically stable Respiratory status: spontaneous ventilation Follow-up needed: none Perioperative Events Perioperative Event: No Emergency Case Activation: No Associated attestation - Gerald Lincoln MD - 07/08/2017 11:37 AM [facility] Formatting of this note may be different from the original. ATTESTATION Post-Anesthesia Evaluation Attestation: I reviewed and agree the indicated post- anethesia care was provided. Staff name: Gerald Lincoln MD Date: 07/08/2017 * Anesthesia Procedure Notes - Radha Sweeney DO - 07/04/2017 11:14 AM [facility] Associated Order(s): ANESTHESIA EPIDURAL BLOCK Anesthesia Procedure: Epidural Block EPIDURAL BLOCK Date/Time: [...] and monitoring data during procedure. Performed by: RADHA SWEENEY Authorized by: MANUEL KATE Associated attestation - Manuel Kate MD - 07/04/2017 12:33 PM [facility] Formatting of this note may be different from the original. ATTESTATION I was present during the entire procedure performed by a resident/fellow. No complications and VSS Staff name: Manuel Kate MD Date: 07/04/2017 * Anesthesia Preprocedure Evaluation - Aaron Cash MD - 06/10/2017 12:30 PM [facility] Formatting of this note may be different from the original. Anesthesia Pre-Procedure Evaluation Name: Maribel Go : 1950 Age: 67 y.o. Sex: female Procedure Date: 07/04/2017 Procedure: Procedure(s) with comments: OPEN NEPHRECTOMY OF LEFT MOEITY OF THE HORSESHOE KIDNEY - CASE LENGTH 4 HOURS NEPHRECTOMY PARTIAL Physical Assessment Vital Signs (last filed in past 24 hours): BP: 146/64 (06/10 1144) Temp: 37.1 C (98.8 F) (06/10 1144) Pulse: 98 (06/10 1144) Respirations: 15 PER MINUTE (06/10 1144) SpO2: 96 % (06/10 1144) O2 Delivery: None (Room Air) (06/10 1144) Height: 154.9 cm (61") (06/10 1144) Weight: 87.3 kg (192 lb 6.4 oz) (06/10 1144) Patient History Allergies Allergen Reactions Benzonatate ANAPHYLAXIS and RASH Sulfamethoxazole-Trimethoprim SHORTNESS OF BREATH and STOMACH UPSET Anaprox [Naproxen Sodium] SEE COMMENTS "sores in mouth & nose" Arthrotec [Diclofenac-Misoprostol] STOMACH UPSET Darvocet [Propoxyphene N-Acetaminophen] STOMACH UPSET Diclofenac STOMACH UPSET Hydrocodone STOMACH UPSET Indomethacin STOMACH UPSET Macrobid [Nitrofurantoin Monohyd/M-Cryst] STOMACH UPSET Misoprostol STOMACH UPSET Oxycodone STOMACH UPSET Tolectin [Tolmetin] SEE COMMENTS "affected kidneys" Trimethoprim STOMACH UPSET Current Medications Medication Directions amoxicillin (AMOXIL) 500 mg capsule Take 500 mg by mouth every 8 hours. docusate (COLACE) 100 mg capsule Take 100 mg by mouth daily. doxazosin (CARDURA) 8 mg tablet Take 8 mg by mouth daily. furosemide (LASIX) 40 mg tablet Take 40 mg by mouth as Needed. lisinopril-hydrochlorothiazide (PRINZIDE, ZESTORETIC) 20-12.5 mg tablet Take 1 tablet by mouth every morning. oxybutynin XL (DITROPAN XL) 15 mg tablet Take 15 mg by mouth daily. potassium chloride SR (K-DUR) 10 mEq tablet Take 10 mEq by mouth as Needed. Take with a meal and a full glass of water. rosuvastatin (CRESTOR) 10 mg tablet Take 10 mg by mouth daily. vitamins, B complex tab Take 1 tablet by mouth daily. vitamins, multi PED chewable Chew by mouth daily. Review of Systems/Medical History Patient summary reviewed Nursing notes reviewed Pertinent labs reviewed PONV Screening: Female gender and Non-smoker No history of anesthetic complications ( Answers to Megan) No family history of anesthetic complications Airway - negative Pulmonary Not a current smoker ( 30 pyh quit in former smoker 30 pk/yr) Asthma COPD (Uses advair PRN, insstructed to start using BID in anticipation of surgery) No recent URI Shortness of breath Cardiovascular Recent diagnostic studies: ECG and stress test 06/10/17: Sinus rhythm, probable left atrial abnormality, Inc LBBB Exercise tolerance: >4 METS (SOB with activity no chest pain) Hypertension, Valvular problems/murmurs No past AK, No hx of coronary artery disease ( Clean cardiac cath in 2010 for GAITAN and prior to AVR ) No palpitations No dysrhythmias No DVT No hyperlipidemia ( Denies HLD but takes Crestor) Orthopnea No indications/hx of PND Dyspnea on exertion Congenital heart disease ( Coarctation of aorta repaired in 1969) Reports stress test was normal and has clearance. GI/Hepatic/Renal No GERD, Liver disease ( Fatty liver) Cirrhosis Renal disease (horseshoe kidney) No electrolyte problems Neuro/Psych Seizures (last seizure in 01/10), well controlled No indications/hx of neuropathy Musculoskeletal Arthritis ( left TKR) Endocrine/Other Blood dyscrasia ( thrombocytopenia Bone marrow biopsy done she reports was negative) Obesity Physical Exam Airway Findings Mallampati: II TM distance: <3 FB Neck ROM: full Mouth opening: good Airway patency: adequate Dental Findings: Negative Cardiovascular Findings: Rhythm: regular Rate: normal Other findings: murmur ( bioprosthetic valve audible LSB and RSB) No carotid bruit, no peripheral edema Pulmonary Findings: Breath sounds clear to auscultation. Abdominal Findings: Comments: Deferred. Neurological Findings: Normal mental status Diagnostic Tests Hematology: Lab Results Component Value Date HGB 12.6 07/03/2017 HCT 37.5 07/03/2017 PLTCT 159 07/03/2017 WBC 6.2 07/03/2017 MCV 86.8 07/03/2017 MCH 29.1 07/03/2017 MCHC 33.6 07/03/2017 MPV 7.3 07/03/2017 RDW 14.0 07/03/2017 General Chemistry: Lab Results Component Value Date NA 141 06/10/2017 K 4.2 06/10/2017 CL 105 06/10/2017 CO2 28 06/10/2017 GAP 8 06/10/2017 BUN 19 06/10/2017 CR 0.88 06/10/2017 GLU 107 06/10/2017 CA 9.8 06/10/2017 ALBUMIN 4.4 06/10/2017 TOTBILI 0.3 06/10/2017 Coagulation: Lab Results Component Value Date PTT 30.7 06/10/2017 INR 1.0 06/10/2017 Labs: cbc cmp and T&S, ptt and INR Anesthesia Plan ASA score: 3 Plan: general NPO status: acceptable Comments: (Concerns for anesthesia: Prior to TKR in 05/2016 was given 2 units of platelets. Reacted to second unit of platelets, treated immediately, recovered and proceeded to surgery for TKR. Received 3 units of blood 2-3 days after surgery, no reaction.) Informed Consent Use of blood products discussed with patient; consented to blood products. Plan discussed with: WALL TO WALL CARPET INSTALLER and surgeon/proceduralist. Addendum: per [facility], cardiac is is "low". Echo 03/13/17:EF 55-60%, mild to moderate increased aortic valve gradient of 36 mmHg, mean gradient of 24 mmHg. Mild to moderate mitral insufficiency. Stress test no prominent ischemia, good LV systolic function thrombocytopenia, office note 04/09, abd. US, fatty liver, cirrhosis, . Plan for dos was faxed to Dr. Mccray and is on red chart. Dr. Rosales recommends Tx platelets to keep > 100K and consult heme at [facility]. Pt pt is to RT PAC 07/03 for T & C ( + antibodies). CBC as well, or day of surgery. in this encounter Plan of Treatment Not on fileas of this encounter Results * ANESTHESIA EPIDURAL BLOCK (07/04/2017 12:33 PM) Narrative Radha Sweeney DO 07/04/2017 11:15 AM Anesthesia Procedure: [...] and monitoring data during procedure. Performed by: RADHA SWEENEY Authorized by: MANUEL KATE in this encounter Visit Diagnoses Not on filein this encounter Administered Medications Medication Order MAR Action Action Date Dose Rate Site acetaminophen (OFIRMEV) injection Given 07/04/2017 1,000 mg Administer over 15 Minutes, 14:20 [facility] INTRA-PROCEDURE MED, Starting Fri07/04/17 at 1420, Until Fri07/04/17 at 1522, Pain non-opioid: may be used alone or in combination with opioid analgesia, Anesthesia Intra-op bupivacaine 0.1% in NS 50mL epidural Given - New 07/04/2017 6 mL/hr 6 mL/hr infusion syringe Bag 12:46 [facility] 50 mL, INTRA-PROCEDURE MED(CONT), Starting Fri07/04/17 at 1246, Until Fri07/04/17 at 1522, Anesthesia Intra-op ceFAZolin (ANCEF) injection Given 07/04/2017 2 g INTRA-PROCEDURE MED, Starting Fri 11:49 [facility] 07/04/17 at 1149, Until Fri07/04/17 at 1522, Anesthesia Intra-op dexamethasone (DECADRON) injection Given 07/04/2017 4 mg Intravenous, INTRA-PROCEDURE MED, 11:34 [facility] Starting Fri07/04/17 at 1119, Until Fri07/04/17 at 1522, Nausea/Vomiting Injectable, Anesthesia Intra-op dextran 70/hypromellose (NATURAL BALANCE Given 07/04/2017 2 drops TEARS) 0.1/0.3 % ophthalmic solution 11:23 [facility] INTRA-PROCEDURE MED, Starting Fri07/04/17 at 1123, Until Fri07/04/17 at 1522, Dry Eyes, Irritated Eyes, Anesthesia Intra-op ePHEDrine 50 mg/mL 50 mg in sodium Given - New 07/04/2017 10 mg chloride PF 0.9% 5 mL IV syringe Bag 12:01 [facility] 5 mL, INTRA-PROCEDURE MED(CONT), Starting Fri07/04/17 at 1201, Until Discontinued, Anesthesia Intra-op Bolus 07/04/2017 5 mg 12:13 [facility] fentaNYL citrate PF (SUBLIMAZE) Given 07/04/2017 50 mcg injection 11:43 [facility] INTRA-PROCEDURE MED, Starting Fri07/04/17 at 1143, Until Fri07/04/17 at 1522, Pain Injectable, Anesthesia Intra-op Given 07/04/2017 25 mcg 14:55 [facility] Given 07/04/2017 25 mcg 14:59 [facility] midazolam (VERSED) injection Given 07/04/2017 2 mg Intravenous, INTRA-PROCEDURE MED, 11:16 [facility] Starting Fri07/04/17 at 1116, Until Fri07/04/17 at 1522, Agitation Injectable, Anxiety Injectable, Anesthesia Intra-op ondansetron (ZOFRAN) injection Given 07/04/2017 4 mg Intravenous, INTRA-PROCEDURE MED, 14:33 [facility] Starting Fri07/04/17 at 1433, Until Fri07/04/17 at 1522, Nausea/Vomiting Injectable, Anesthesia Intra-op phenylephrine in NS Injection Given 07/04/2017 200 mcg Intravenous, INTRA-PROCEDURE MED, 11:38 [facility] Starting Fri07/04/17 at 1155, Until Fri07/04/17 at 1522, Symptomatic Hypotension, Anesthesia Intra-op Given 07/04/2017 100 mcg 11:45 [facility] Given 07/04/2017 100 mcg 11:55 [facility] propofol (DIPRIVAN) injection Given 07/04/2017 130 mg INTRA-PROCEDURE MED, Starting Fri 11:18 [facility] 07/04/17 at 1118, Until Fri07/04/17 at 1522, Anesthesia Intra-op rocuronium (ZEMURON) injection Given 07/04/2017 20 mg INTRA-PROCEDURE MED, Starting Fri 12:48 [facility] 07/04/17 at 1118, Until Fri07/04/17 at 1522, Anesthesia Intra-op Given 07/04/2017 20 mg 13:20 [facility] Given 07/04/2017 30 mg 13:50 [facility] sodium chloride 0.9 % infusion Given - New 07/04/2017 1,000 mL 20 mL/ hr 1,000 mL, 1,000 mL, Intravenous, at 20 Bag 10:14 [facility] mL/hr, CONTINUOUS, Starting 07/04/17 at 0945, Until 07/05/17 at 0913 Given - New Bag 07/04/2017 12:53 [facility] sodium chloride 0.9 % infusion Given - New 07/04/2017 INTRA-PROCEDURE MED(CONT), Starting Fri Bag 11:25 [facility] 07/04/17 at 1125, Until Discontinued, Anesthesia Intra-op sugammadex (BRIDION) injection Given 07/04/2017 167 mg Intravenous, INTRA-PROCEDURE MED, 15:02 [facility] Starting Fri07/04/17 at 1502, Until Fri07/04/17 at 1522, Anesthesia Intra-op in this encounter
--- OUTSIDE RECORDS SUMMARY | 2017-07-12 15:01 | XMS REPORT | Encounter Summary ---
Author Author [facility] Organization [facility] Address Unknown Phone Unavailable Care Team Providers Care Metal Sprayer Name Role Phone PCP Unavailable Reason for Visit * Auth/Cert Status Reason Specialty Diagnoses / Referred By Referred To Procedures Contact Contact Diagnoses Obstruction of left ureteropelvic junction (UPJ) Procedures DE NEPHRECTOMY W/PRTL URETERECTOMY W/OPEN RIB RESCJ DE NEPHRECTOMY PARTIAL NEPHRECTOMY Encounter Details Date Type Department Care Team Description 07/04/2017 Surgery Main Operating Room Nakul Alvarez MD OPEN NEPHRECTOMY OF LEFT [address] [place] [address] [address] [phone] [place] [address] [phone] Social History Tobacco Use Types Packs/Day Years Used Date Former Smoker Cigarettes 2 15 Quit: 1987 Smokeless Tobacco: Never Used Alcohol Use Drinks/Week oz/Week Comments No 2-3 yearly Sex Assigned at Date Recorded Not on file as of this encounter Last Filed Vital Signs Vital Sign Reading Time Taken Blood Pressure 127/59 07/08/2017 10:44 AM COMMERCIAL COUNSEL Pulse 90 07/08/2017 11:02 AM COMMERCIAL COUNSEL Temperature 36.6 C (97.9 F) 07/08/2017 10:44 AM COMMERCIAL COUNSEL Respiratory Rate - - Oxygen Saturation 94% 07/08/2017 10:44 AM COMMERCIAL COUNSEL Inhaled Oxygen - - Concentration Weight 83.6 kg (184 lb 4.9 oz) 07/04/2017 10:01 AM COMMERCIAL COUNSEL Height 156.2 cm (5' 1.5") 07/04/2017 10:01 AM COMMERCIAL COUNSEL Body Mass Index 34.26 07/04/2017 10:01 AM COMMERCIAL COUNSEL in this encounter Functional Status Functional Status [...] Natalie Damon APRN-NP - 07/08/2017 11:40 AM COMMERCIAL COUNSEL Formatting of this note may be different [...] or concerns regarding your hospital stay. Call [phone] You may have questions about your hospital stay after you get home. From 8 AM to 4 PM Friday through Friday, please call Dr. Alvarez's sales data analyst to have the nurse practitioner paged at . Dr. Alvarez's sales data analyst can also assist with questions regarding your follow up appointment. If calling after hours or with urgent questions, please call and ask for the urology resident transmission and coordination engineer. In case of an emergency, please report to your nearest emergency department and contact us on the way. Discharging attending physician: NAKUL ALVAREZ [[id number]] Regular Diet You have no dietary restriction. [...] the Medical Office Building. Provider NAKUL ALVAREZ [[id number]] Location Urology Clinic Appointment date: 07/17/2017 Appointment [...] Scheduled appointments: Jul 17, 2017 3:30 PM COMMERCIAL COUNSEL Return Patient with Nakul Alvarez MD [facility] ([facility]) 2nd Floor Pod [address] [facility] Med Office [facility] [id number] Pending items needing follow up: Follow [...] lisinopril-hydrochlorothi Take 0.5 tablets by mouth azide (JEFF every morning. ZESTORETIC) 20-12.5 mg tablet ondansetron [...] Madeleine Estrada RN - 07/08/2017 11:04 AM COMMERCIAL COUNSEL Rosanne Go discharged on 07/08/2017. . Discharge [...] Nakul Alvarez MD - 07/08/2017 5:35 AM COMMERCIAL COUNSEL Formatting of this note may be different [...] Henson MD PGY-1 Urology Please page urology transmission and coordination engineer with questions ATTESTATION I personally performed the [...] Ema Dominguez, RT - 07/07/2017 12:42 PM COMMERCIAL COUNSEL Formatting of this note may be different [...] Date: 07/07/2017 Burrell AC=Airway clearance AM=Aerosolized medication BA=Newton aerosol DB&C=Deep breathe & cough FEV1=Forced expiratory volume in first second) IC=Inspiratory capacity LE=Lung expansion MDI=Metered dose inhaler Neb=Nebulizer O2=Oxygen Oxim=Oximetry PEFR=Peak expiratory flow rate COMPANY LAUNDRY WORKER=Rapid Response Team * Macie Mittal OT - 07/07/2017 9:51 AM COMMERCIAL COUNSEL Formatting of this note may be different from the original. OCCUPATIONAL THERAPY ASSESSMENT/DISCHARGE NOTE Patient Name: Rosanne Go Room/Bed: [place] [address] Admitting Diagnosis: Non-functioning kidney Past Medical History: [...] Bathroom Equipment: Shower Chair;Hand-Held Shower Home Equipment: Maintenance Machine Repairer Prior Function Level Of [place]: Independent with ADLs and functional transfers; Independent [...] Therapist: DELFINO Salazar/Tomas Date: 07/07/2017 * Radha Molina, DO - 07/07/2017 9:20 AM COMMERCIAL COUNSEL Formatting of this note may be different [...] if co-administered with zofran. Anesthesia Pain pager: [phone] Allergies Allergen Reactions Benzonatate ANAPHYLAXIS and RASH [...] clean and nontender Associated attestation - Aure Ktae MD - 07/07/2017 10:03 AM COMMERCIAL COUNSEL Formatting of this note may be different from the original. ATTESTATION I personally observed the resident performing the E/M, discussed case with resident, and concur with resident documentation of history, physical assessment and treatment plan unless otherwise noted. Staff name: Aure Kate MD Date: 07/07/2017 * Tashi Stone, PT - 07/07/2017 9:00 AM COMMERCIAL COUNSEL PHYSICAL THERAPY PROGRESS NOTE MOBILITY: Mobility Progressive [...] Nakul Alvarez MD - 07/07/2017 5:41 AM COMMERCIAL COUNSEL Formatting of this note may be different [...] Mcgee MD PGY-2 Urology Please page urology transmission and coordination engineer with questions ATTESTATION I personally performed the [...] Glenn Laguna, DO - 07/06/2017 12:18 PM COMMERCIAL COUNSEL Formatting of this note may be different [...] Possible dc epidural tomorrow. Anesthesia Pain pager: [phone] Allergies Allergen Reactions Benzonatate ANAPHYLAXIS and RASH [...] 1 tablet Oral BID Continuous Infusions: bupivacaine DOWNSTREAM BIOMANUFACTURING TECHNICIAN 0.1% in NS 50mL epidural infusion syr [...] Antoinette Kline MD - 07/06/2017 1:09 PM COMMERCIAL COUNSEL Formatting of this note may be different from the original. ATTESTATION I personally observed the resident performing the E/M, discussed case with resident, and concur with resident documentation of history, physical assessment and treatment plan unless otherwise noted. Staff name: Antoinette Kline MD Date: 07/06/2017 * Reina Meadows MD - 07/06/2017 7:23 AM COMMERCIAL COUNSEL Formatting of this note may be different [...] Henson MD PGY-1 Urology Please page urology transmission and coordination engineer with questions SUBJECTIVE: Overnight events: No acute [...] Mery Barajas MD - 07/05/2017 12:34 PM COMMERCIAL COUNSEL Formatting of this note may be different [...] epidural for pain management Anesthesia Pain pager: [phone] Allergies Allergen Reactions Benzonatate ANAPHYLAXIS and RASH [...] 1 tablet Oral BID Continuous Infusions: bupivacaine DOWNSTREAM BIOMANUFACTURING TECHNICIAN 0.1% in NS 50mL epidural infusion syr [...] Antoinette Kline MD - 07/05/2017 12:53 PM COMMERCIAL COUNSEL Formatting of this note may be different from the original. ATTESTATION I personally observed the resident performing the E/M, discussed case with resident, and concur with resident documentation of history, physical assessment and treatment plan unless otherwise noted. Staff name: Antoinette Kline MD Date: 07/05/2017 * Keila Pillai, PT - 07/05/2017 11:04 AM COMMERCIAL COUNSEL PHYSICAL THERAPY ASSESSMENT MOBILITY: Mobility Progressive Mobility [...] Aching Pain Interventions: Patient encouraged to use DOWNSTREAM BIOMANUFACTURING TECHNICIAN/PNC (IV);Patient assisted into position of comfort Precautions: [...] Reina Meadows MD - 07/05/2017 7:32 AM COMMERCIAL COUNSEL Formatting of this note may be different [...] Henson MD PGY-1 Urology Please page urology transmission and coordination engineer with questions SUBJECTIVE: Overnight events: No acute [...] Dominique Haynes, RT - 07/04/2017 9:25 PM COMMERCIAL COUNSEL Formatting of this note may be different [...] Rx *Higher points indicate higher acuity. Therapist: RT Susana Date: 07/04/2017 Burrell AC=Airway clearance AM=Aerosolized medication BA=Newton aerosol DB&C=Deep breathe & cough FEV1=Forced expiratory volume in first second) IC=Inspiratory capacity LE=Lung expansion MDI=Metered dose inhaler Neb=Nebulizer O2=Oxygen Oxim=Oximetry PEFR=Peak expiratory flow rate COMPANY LAUNDRY WORKER=Rapid Response Team * Faith Medina, RN - 07/04/2017 7:01 PM COMMERCIAL COUNSEL Pt admitted onto unit accompanied by transport around 1800. Patient transferred to the bed from cart with minimal assistance. Pt tolerated without any difficulties. Belongings at bedside. Orders reviewed and implemented as appropriate. Pt oriented to surroundings. Call light within reach. Plan of care reviewed. Will continue to monitor patient needs. * Clifford Perez, RT - 07/04/2017 6:59 PM COMMERCIAL COUNSEL Formatting of this note may be different [...] Date: 07/04/2017 Burrell AC=Airway clearance AM=Aerosolized medication BA=Newton aerosol DB&C=Deep breathe & cough FEV1=Forced expiratory volume in first second) IC=Inspiratory capacity LE=Lung expansion MDI=Metered dose inhaler Neb=Nebulizer O2=Oxygen Oxim=Oximetry PEFR=Peak expiratory flow rate COMPANY LAUNDRY WORKER=Rapid Response Team in this encounter H&P Notes * Nakul Alvarez MD - 07/04/2017 10:20 AM COMMERCIAL COUNSEL Formatting of this note may be different from the original. [facility] H&P 07/04/2017 Patient: Rosanne Go Admission Date: 07/04/2017, LOS: 0 days Admission [...] PER MINUTE (07/04 1001) SpO2: 97 % (07/04 1001) O2 Delivery: None (Room Air) (07/04 1001) [...] Bart Seay Jr, M.D. PGY-5 Urology Pager: [phone] in this encounter Miscellaneous Notes * Care Plan - Madeleine Estrada RN - 07/08/2017 8:21 AM COMMERCIAL COUNSEL Problem: Discharge Planning Goal: Participation in plan of care Outcome: Goal Achieved Date Met: 07/08/17 Pt aware of discharge today Problem: Pain Goal: Management of pain Outcome: Goal Achieved Date Met: 07/08/17 Pt has no c/o pain upon discharge * Care Plan - Mechelle Yee RN - 07/07/2017 4:36 PM COMMERCIAL COUNSEL Problem: Discharge Planning Goal: Participation in plan of care Outcome: Goal Ongoing Pt actively participated in dc planning Problem: Pain Goal: Management of pain Outcome: Goal Ongoing Pt able to rate pain using 0/10 scale * Case Mgmt DC Plan - Norris Soheila - 07/07/2017 1:33 PM COMMERCIAL COUNSEL Formatting of this note may be different [...] Contact Information Primary Emergency Contact: Adrian Go [facility] Mobile Relation: Spouse DPOA no Transportation Does the patient need discharge transport arranged?: No Transportation Name, Phone and Availability #1: Adrian [phone] Does the patient use Medicaid Transportation?: No [...] Source of Income Source Of Income: Other prison income ? Financial Assistance Needed? no Current/Previous [...] ? Outpatient Therapy PT: No OT: No TRANSFER SPECIALIST: No ? SNF/NH SNF: No NH: No [...] Suspected Abuse?: No Soheila Pisano RN, BSN, [facility] [phone] * Care Plan - Ariella Harrison RN - 07/06/2017 10:00 AM COMMERCIAL COUNSEL Problem: Pain Goal: Management of pain Outcome: Goal Ongoing Pt states she has abd pain 10/04. RN encouraged pt to use epidural. Will cont to monitor. * Anesthesia Post Op Day 1 - Chaparro Kenyon SRNA - 07/04/2017 9:18 PM COMMERCIAL COUNSEL Formatting of this note may be different [...] 86 (07/040) Height: 156.2 cm (61.5") (07/04 1001) Patient History Allergies Allergies Allergen Reactions Benzonatate [...] 1 tablet Oral BID Continuous Infusions: bupivacaine DOWNSTREAM BIOMANUFACTURING TECHNICIAN 0.1% in NS 50mL epidural infusion syr [...] Nakul Alvarez MD - 07/04/2017 3:32 PM [facility] [address] [facility]. [place], [place] [address] PATIENT NAME: ROSANNE GO MR#/PT#: [id number] Page 3 OPERATIVE REPORT DATE OF OPERATION: 07/04/2017 SURGEON: Nakul Alvarez MD AUDIT LEAD(S): Bart Seay MD PREOPERATIVE DIAGNOSIS: Left ureteropelvic [...] Dictated by: Bart Seay MD / MED /[id number] cc: - Nakul Alvarez MD * Procedures (Immed Post or Bedside) - Nakul Alvarez MD - 07/04/2017 3:17 PM COMMERCIAL COUNSEL Formatting of this note may be different [...] PACU - stable Bart Seay MD Pager [phone] ATTESTATION I performed this procedure with a [...] left [facility] [place] 11:05 AM COMMERCIAL COUNSEL ureteropelvic junction KIDNEY (UPJ) in this encounter Results * PHOSPHORUS (07/08/2017 4:53 AM) Component Value Ref Range Phosphorus 2.6 2.0 - 4.0 MG/DL Specimen Performing Laboratory [facility] [address] [place] [address] * MAGNESIUM (07/08/2017 4:53 AM) Component Value Ref Range Magnesium 2.0 1.6 - 2.6 mg/dL Specimen Performing Laboratory [facility] [address] [place] [address] * BASIC METABOLIC PANEL (07/08/2017 4:53 AM) [...] Performing Laboratory [facility] [address] [place] [address] * CBC (07/08/2017 4:53 AM) Component Value [...] [place] Specimen Performing Laboratory [facility] [address] [place] [address] * PHOSPHORUS (07/07/2017 4:48 AM) Component Value Ref Range Phosphorus 2.8 2.0 - 4.0 MG/DL Specimen Performing Laboratory [facility] [address] [place] [address] * MAGNESIUM (07/07/2017 4:48 AM) Component Value Ref Range Magnesium 1.9 1.6 - 2.6 mg/dL Specimen Performing Laboratory [facility] [address] [place] [address] * BASIC METABOLIC PANEL (07/07/2017 4:48 AM) [...] questions. Specimen Performing Laboratory [facility] [address] [place] [address] * CBC (07/07/2017 4:48 AM) Component Value [...] Specimen Performing Laboratory [facility] [address] [place] [address] * PHOSPHORUS (07/06/2017 4:18 AM) Component Value Ref Range Phosphorus 2.9 2.0 - 4.0 MG/DL Specimen Performing Laboratory [facility] [address] [place] [address] * MAGNESIUM (07/06/2017 4:18 AM) Component Value Ref Range Magnesium 2.0 1.6 - 2.6 mg/dL Specimen Performing Laboratory [facility] [address] [place] [address] * BASIC METABOLIC PANEL (07/06/2017 4:18 AM) [...] questions. Specimen Performing Laboratory [facility] [address] [place] [address] * CBC (07/06/2017 4:18 AM) Component Value [...] [place] Specimen Performing Laboratory [facility] [address] [place] [address] * PHOSPHORUS (07/05/2017 5:19 AM) Component Value Ref Range Phosphorus 4.0 2.0 - 4.0 MG/DL Specimen Performing Laboratory [facility] [address] [place] [address] * MAGNESIUM (07/05/2017 5:19 AM) Component Value Ref Range Magnesium 1.9 1.6 - 2.6 mg/dL Specimen Performing Laboratory [facility] [address] [place], [place] [id number] * BASIC METABOLIC PANEL (07/05/2017 5:19 AM) [...] questions. Specimen Performing Laboratory [facility] [address] [place] [address] * CBC (07/05/2017 5:19 AM) Component Value [...] Specimen Performing Laboratory [facility] [address] [place] [address] * CBC (07/04/2017 3:58 PM) Component Value [...] Specimen Performing Laboratory [facility] [address] [place] [address] * SURGICAL PATHOLOGY (07/04/2017 2:17 PM) Component Value Ref Range PATHOLOGY REPORT [facility] [email or web address] Department of Pathology and Laboratory Medicine [address] [place] [address] Surgical Pathology Office: [phone] SURGICAL PATHOLOGY REPORT NAME: ROSANNE GO Andrei SURG PATH #: [id number] MR #: [id number] SPECIMEN CLASS: SR BILLING #: [id number] ALT ID #: LOCATION: [facility] DATE OF PROCEDURE: 07/04/2017 AGE: 67 [...] lesions are grossly identified. Uninvolved renal parenchyma: Lechee-damian and grainy Adrenal gland: No Lymph nodes identified: No Speech Teacher sections of the specimen are submitted as follows: A1 Vascular margins. A2 Ureteral margin (inked black) and additional ureteral resection directly adjacent to ureteral margin. A3 Speech Teacher sections of renal pelvis in relationship to renal parenchyma. A4 Speech Teacher section of renal pelvis in relationship to renal sinus fat and renal parenchyma. A5-A6 Speech Teacher sections of renal pelvis, three fragments per cassette. (sld) /07/04/2017 Specimen Performing Laboratory [facility] RESULTS * BLOOD BANK SAMPLE HOLD (07/04/2017 10:10 AM) Component Value Ref Range BB Sample hold IN LAB Specimen Performing Laboratory [facility] [address] [address] in this encounter Visit Diagnoses Diagnosis Obstruction of left ureteropelvic junction (UPJ) in this encounter Admitting Diagnoses Diagnosis Obstruction of left ureteropelvic junction (UPJ) Non-functioning kidney in this encounter
--- OUTSIDE RECORDS SUMMARY | 2017-07-12 15:01 | XMS REPORT | Encounter Summary ---
Author Author [facility] Organization [facility] Address Unknown Phone Unavailable Care Team Providers Care Flatwork Ironer Name Role Phone PCP Unavailable Encounter Details Date Type Department Care Team Description 07/04/2017 Procedure Pass Main Operating Room [address] [place], [place] [id number] Social History Tobacco Use Types Packs/Day Years Used Date Former Smoker Cigarettes 2 15 Quit: 1987 Smokeless Tobacco: Never Used Alcohol Use Drinks/Week oz/Week Comments No 2-3 yearly Sex Assigned at Date Recorded Not on file as of this encounter Plan of Treatment Not on fileas of this encounter Visit Diagnoses Not on filein this encounter
--- OUTSIDE RECORDS SUMMARY | 2017-07-12 15:02 | XMS REPORT | Encounter Summary ---
Author Author [facility] Organization [facility] Address Unknown Phone Unavailable Care Team Providers Care Launch Manager Name Role Phone PCP Unavailable Encounter Details Date Type Department Care Team Description 06/10/2017 Orders Only DEFAULT DEPT REG AREAS Tessie Costa, CHANGE COORDINATOR [address] [place] [address] [place] [address] [phone] Social History Tobacco Use Types Packs/Day Years Used Date Former Smoker Cigarettes 2 15 Quit: 1987 Smokeless Tobacco: Never Used Alcohol Use Drinks/Week oz/Week Comments No 2-3 yearly Sex Assigned at Date Recorded Not on file as of this encounter Plan of Treatment Not on fileas of this encounter Results * ANTIBODY CONSULT (06/10/2017 1:15 PM) Component [...] this report. Specimen Performing Laboratory [facility] in this encounter Visit Diagnoses Not on filein this encounter
--- OUTSIDE RECORDS SUMMARY | 2017-07-12 15:02 | XMS REPORT | Encounter Summary ---
Author Author [facility] Organization [facility] Address Unknown Phone Unavailable Care Team Providers Care Tacking Stitch Remover Name Role Phone PCP Unavailable Encounter Details Date Type Department Care Team Description 06/10/2017 PAC Office Preoperative Assessment Juan Mccray MD Pre- op evaluation Visit Clinic [address] (Primary [address] Dx);[place] [address] [place] [address] (HCC);Fatty liver [phone] disease, nonalcoholic;Encounter for blood typing Social History Tobacco Use Types Packs/Day Years Used Date Former Smoker Cigarettes 2 15 Quit: 1987 Smokeless Tobacco: Never Used Alcohol Use Drinks/Week oz/Week Comments No 2-3 yearly Sex Assigned at Date Recorded Not on file as of this encounter Last Filed Vital Signs Vital Sign Reading Time Taken Blood Pressure 146/64 06/10/2017 11:44 AM NSH TEACHER Pulse 98 06/10/2017 11:44 AM NSH TEACHER Temperature 37.1 C (98.8 F) 06/10/2017 11:44 AM NSH TEACHER Respiratory Rate - - Oxygen Saturation 96% 06/10/2017 11:44 AM NSH TEACHER Inhaled Oxygen - - Concentration Weight 87.3 kg (192 lb 6.4 oz) 06/10/2017 11:44 AM NSH TEACHER Height 154.9 cm (5' 1") 06/10/2017 11:44 AM NSH TEACHER Body Mass Index 36.35 06/10/2017 11:44 AM NSH TEACHER in this encounter Instructions * Pre-Anesthesia Medication Instructions - Elvin Walker, PHARMD - 06/10/2017 12 :19 PM NSH TEACHER Formatting of this note may be different from the original. YOUR MEDICATIONS: albuterol (VENTOLIN HFA) 90 mcg/actuation inhaler Inhale 1-2 puffs by mouth into the lungs every 6 hours as needed for Wheezing or Shortness of Breath. Shake well before use. albuterol 0.5% (PROVENTIL; VENTOLIN) 2.5 mg/0.5 mL nebulizer solution Inhale 2.5 mg solution by nebulizer as directed every 6 hours as needed for Shortness of Breath or Wheezing. docusate (COLACE) 100 mg capsule Take 100 mg by mouth daily. doxazosin (CARDURA) 8 mg tablet Take 8 mg by mouth at bedtime daily. fluticasone/salmeterol (ADVAIR DISKUS) 250/50 mcg inhalation disk Inhale 1 puff by mouth into the lungs twice daily as needed. furosemide (LASIX) 40 mg tablet Take 40 mg by mouth daily as needed. Indications: Edema lactobacillus rhamnosus GG (LACTOBACILLUS RHAMNOSUS (GG)) 15 billion cell cpSP capsule Take 1 capsule by mouth as directed daily. lisinopril-hydrochlorothiazide (PRINZIDE, ZESTORETIC) 20-12.5 mg tablet Take 0.5 tablets by mouth every morning. oxybutynin XL (DITROPAN XL) 15 mg tablet Take 15 mg by mouth daily as needed. Indications: INCREASED URINARY FREQUENCY phenytoin SR (DILANTIN EXTENDED) 100 mg capsule Take 400 mg by mouth at bedtime daily. potassium chloride SR (K-DUR) 10 mEq tablet Take 20 mEq by mouth daily as needed. Take with a meal and a full glass of water. rosuvastatin (CRESTOR) 10 mg tablet Take 10 mg by mouth at bedtime daily. vitamins, B complex tab Take 1 tablet by mouth daily. vitamins, multi PED chewable Chew by mouth daily. YOUR MEDICATION INSTRUCTIONS FOR SURGERY: Before surgery Stop the following vitamins, herbals, and natural supplements 14 days before surgery: Multivitamin Vitamin B Complex Stop the following medications 7 days before surgery: Anti-inflammatory medications such as ibuprofen (Advil, Motrin) and naproxen (Aleve) You may use acetaminophen (Tylenol) Morning of surgery On the morning of surgery, do NOT take these medications: Remaining vitamins/supplements Ointments/creams/lotions Furosemide Potassium Chloride Lisinopril-HCTZ On the morning of surgery, take ONLY these medications with a sip (1-2 ounces) of water: Use inhalers as usual Other information Before surgery, please contact the clinic pharmacist with any medicine updates or questions. E-mail: [email or web address] Before going home from the hospital, please ask your doctor when you should re- start your medicines that were stopped before surgery. * Pre-Anesthesia Patient Instructions - Veronika Sanderson RN - 06/10/2017 11:45 AM NSH TEACHER GENERAL INFORMATION Before you come to the hospital Make arrangements for a responsible adult to drive you home and stay with you for 24 hours following surgery. Bath/Shower Instructions Take a bath or shower using the special soap given to you in PAC. Use half the bottle the night before, and the other half the morning of your procedure. Use clean towels with each bath or shower. Put on clean clothes after bath or shower. Avoid using lotion and oils. If you are having surgery above the waist, wear a shirt that fastens up the front. Sleep on clean sheets if bath or shower is done the night before procedure. Leave money, credit cards, jewelry, and any other valuables at home. [facility] is not responsible for the loss or breakage of personal items. Remove nail nigerien, makeup and all jewelry (including piercings) before coming to the hospital. The morning of your procedure: brush your teeth and tongue do not shave the area where you will have surgery What to bring to the hospital ID/ Insurance Card Gas Or Water Meter Installer card Official documents for legal guardianship Copy of your Living Will, Advanced Directives, and/or Durable Power of Reservations Sales Supervisor Small bag with a few personal belongings Cases for glasses/hearing aids/contact lens (bring solutions for contacts) Dress in clean, loose, comfortable clothing Eating or drinking before surgery Do not eat or drink anything after 11:00 p.m. the day before your procedure ( including gum, mints, candy, or chewing tobacco). May have clear liquids up to 2 hours prior to arrival time. Other instructions Notify your surgeon if: you become ill with a cough, fever, sore throat, nausea, vomiting or flu- like symptoms you have any open wounds/sores that are red, painful, draining, or are new since you last saw the doctor you need to cancel your procedure Notify us at [facility]: if you need to cancel your procedure if you are going to be late Arrival at the hospital Main Hospital: Park in the [place] [facility] located directly across from the main entrance to the hospital. Complaints Coordinator parking is available from 7 AM to 4 PM Friday through Friday. Validate your parking ticket at the Information Desk in the hospital lobby. Proceed to Admissions located across the lobby from the Information Desk. in this encounter Plan of Treatment Name Priority Associated Diagnoses Order Schedule ECG 12-LEAD Routine Thrombocytopenia (HCC) ONE TIME for 1 Fatty liver disease, Occurrences starting nonalcoholic 06/10/2017 until 06/10/2017 as of this encounter Results * TYPE & SCREEN (NOT CROSSMATCH ELIGIBLE) (06/10/2017 1:15 PM) Component Value Ref Range ABO/RH(D) O NEG Antibody Screen POS Blood Component Type RED CELL GROUP Antibody Indentification Anti-E, Antigen Information E antigen NEG, Specimen Performing Laboratory Blood, venous - Blood MAIN LAB [address] [place] [id number] * PTT (APTT) (06/10/2017 1:15 PM) Component Value Ref Range APTT 30.7Comment: NOTE NEW REFERENCE RANGES 21.0 - 39.0 SEC Specimen Performing Laboratory Blood [facility] [address] [place] [id number] * PROTIME INR (PT) (06/10/2017 1:15 PM) Component Value Ref Range INR 1.0 0.8 - 1.2 Specimen Performing Laboratory Blood [facility] [address] [place] [address] * COMPREHENSIVE METABOLIC PANEL (06/10/2017 1:15 PM) [...] Specimen Performing Laboratory Blood MAIN LAB [address] [place] [address] * CBC (06/10/2017 1:15 PM) Component Value Ref Range White Blood Cells 5.9 4.5 - 11.0 K/UL RBC 4.49 4.0 - 5.0 M/UL Hemoglobin 13.4 12.0 - 15.0 GM/DL Hematocrit 38.1 36 - 45 % MCV 84.8 80 - 100 FL MCH 29.9 26 - 34 PG MCHC 35.2 32.0 - 36.0 G/DL RDW 13.0 11 - 15 % Platelet Count 112 (L) 150 - 400 K/UL MPV 6.7 (L) 7 - 11 FL Specimen Performing Laboratory Blood MAIN LAB [address] [place] [address] in this encounter Visit Diagnoses Diagnosis Pre-op evaluation - Primary Preoperative examination, unspecified Thrombocytopenia (HCC) Thrombocytopenia, unspecified Fatty liver disease, nonalcoholic Other chronic nonalcoholic liver disease Encounter for blood typing in this encounter
--- OUTSIDE RECORDS SUMMARY | 2017-07-12 15:02 | XMS REPORT | Encounter Summary ---
Author Author [facility] Organization [facility] Address Unknown Phone Unavailable Care Team Providers Care Wing Scorer Name Role Phone PCP Unavailable Encounter Details Date Type Department Care Team Description 05/20/2017 Prep for Case [facility] Diogenes Walker PA-C Physicians - Urology [address] [place] [address] [address] [facility] [phone] [place] [address] Social History Tobacco Use Types Packs/Day Years Used Date Former Smoker Cigarettes Smokeless Tobacco: Never Used Alcohol Use Drinks/Week oz/Week Comments Yes 2-3 yearly Sex Assigned at Date Recorded Not on file as of this encounter Plan of Treatment Not on fileas of this encounter Visit Diagnoses Not on filein this encounter
--- OUTSIDE RECORDS SUMMARY | 2017-07-12 15:02 | XMS REPORT | Encounter Summary ---
Author Author [facility] Organization [facility] Address Unknown Phone Unavailable Care Team Providers Care Real Estate Lawyer Name Role Phone PCP Unavailable Encounter Details Date Type Department Care Team Description 05/19/2017 Hospital [facility] Juan Mccray MD Crossing vessel and Encounter [address] [place] [address] [address] [place] [address] [phone] Social History Tobacco Use Types Packs/Day Years Used Date Former Smoker Cigarettes Smokeless Tobacco: Never Used Alcohol Use Drinks/Week oz/Week Comments Yes 2-3 yearly Sex Assigned at Date Recorded Not on file as of this encounter Medications at Time of Discharge Medication Sig. Disp. Refills Start Date End Date docusate (COLACE) 100 mg Take 100 mg by mouth capsule daily. doxazosin (CARDURA) 8 mg Take 8 mg by mouth at tablet bedtime daily. furosemide (LASIX) 40 mg Take 40 mg by mouth daily tabletIndications: Edema as needed. Indications: Edema lisinopril-hydrochlorothi Take 0.5 tablets by mouth azide (PRINZIDE, every morning. ZESTORETIC) 20-12.5 mg tablet oxybutynin XL (DITROPAN Take 15 mg by mouth daily XL) 15 mg as needed. Indications: tabletIndications: INCREASED URINARY INCREASED URINARY FREQUENCY FREQUENCY potassium chloride SR Take 20 mEq by mouth (K-DUR) 10 mEq tablet daily as needed. Take with a meal and a full glass of water. rosuvastatin (CRESTOR) 10 Take 10 mg by mouth at mg tablet bedtime daily. vitamins, B complex tab Take 1 tablet by mouth daily. vitamins, multi PED Chew by mouth daily. chewable albuterol 0.5% Inhale 2.5 mg solution by 06/10/2017 (PROVENTIL; VENTOLIN) 5 nebulizer as directed mg/mL nebulizer solution every 4 hours as needed for Wheezing. amoxicillin (AMOXIL) 500 Take 500 mg by mouth 06/10/2017 mg capsule every 8 hours. FLUTICASONE/SALMETEROL Inhale by mouth into the 06/10/2017 (ADVAIR DISKUS IN) lungs as Needed. LACTOBACILLUS RHAMNOSUS Take by mouth. 06/10/2017 GG (CULTURELLE PO) PHENYTOIN SODIUM EXTENDED Take 400 mg by mouth 06/10/2017 (DILANTIN EXTENDED PO) daily. as of this encounter Plan of Treatment Not on fileas of this encounter Results * CULTURE-URINE W/SENSITIVITY (05/19/2017 3:00 PM) Component [...] Urine - Urine, Outpatient MAIN LAB [address] [place] [address] Organism Antibiotic Method Susceptibility <100,000 organisms/ml Trimethsulfa [...] coagulase INTERPRETATION INTERPRETATION negative, not s. 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
--- OUTSIDE RECORDS SUMMARY | 2017-07-12 15:02 | XMS REPORT | Encounter Summary ---
Author Author [facility] Organization [facility] Address Unknown Phone Unavailable Care Team Providers Care Prover Name Role Phone PCP Unavailable Encounter Details Date Type Department Care Team Description 05/19/2017 Prep for Case [facility] Diogenes Walker PA-C Physicians - Urology [address] [place] [address] [address] [facility] [phone] [place] [address] Social History Tobacco Use Types Packs/Day Years Used Date Former Smoker Cigarettes Smokeless Tobacco: Never Used Alcohol Use Drinks/Week oz/Week Comments Yes 2-3 yearly Sex Assigned at Date Recorded Not on file as of this encounter Plan of Treatment Not on fileas of this encounter Visit Diagnoses Not on filein this encounter
--- OUTSIDE RECORDS SUMMARY | 2017-07-12 15:02 | XMS REPORT | Encounter Summary ---
Author Author [facility] Organization [facility] Address Unknown Phone Unavailable Care Team Providers Care Associate Account Manager Name Role Phone PCP Unavailable Encounter Details Date Type Department Care Team Description 05/26/2017 Orders Only [facility] Juan Mccray MD Physicians - Urology [address] [facility] [address] [place] [address] [employer] [place] [address] OFFICE BLDG [phone] [place] [address] Social History Tobacco Use Types Packs/Day Years Used Date Former Smoker Cigarettes Smokeless Tobacco: Never Used Alcohol Use Drinks/Week oz/Week Comments Yes 2-3 yearly Sex Assigned at Date Recorded Not on file as of this encounter Progress Notes * Aleah Ojeda - 05/26/2017 9:40 AM CDT Pt notified urine culture positive for infection, Bactrim DS sent to [facility] per pt request, medication instructions given and pt expressed understanding. in this encounter Plan of Treatment Not on fileas of this encounter Visit Diagnoses Not on filein this encounter
--- OUTSIDE RECORDS SUMMARY | 2017-07-12 15:02 | XMS REPORT | Encounter Summary ---
Author Author [facility] Organization [facility] Address Unknown Phone Unavailable Care Team Providers Care Planning Aide Name Role Phone PCP Unavailable Encounter Details Date Type Department Care Team Description 05/26/2017 Orders Only [facility] Juan Mccray MD Physicians - Urology [address] [facility] [address] [place] [address] [facility] [place] [address] OFFICE BLDG [phone] [place] [address] Social History Tobacco Use Types Packs/Day Years Used Date Former Smoker Cigarettes Smokeless Tobacco: Never Used Alcohol Use Drinks/Week oz/Week Comments Yes 2-3 yearly Sex Assigned at Date Recorded Not on file as of this encounter Plan of Treatment Not on fileas of this encounter Visit Diagnoses Not on filein this encounter
--- OUTSIDE RECORDS SUMMARY | 2017-07-12 15:02 | XMS REPORT | Encounter Summary ---
Author Author [facility] Organization [facility] Address Unknown Phone Unavailable Care Team Providers Care Belt Cleaner Name Role Phone PCP Unavailable Reason for Referral * Radiology Services Status Reason Specialty Diagnoses / Referred By Referred To Procedures Contact Contact New Request Radiology Diagnoses Diogenes Walker, Obstruction of PA-C left [address] junction (UPJ) [place], [place] kidney [address] P Phone: 51wan [phone] NM RENAL Fax: FUNCTION W LASIX [phone] Reason for Visit * Reason Comments Other horseshoe kidney Encounter Details Date Type Department Care Team Description 05/19/2017 Office Visit [facility] Juan Mccray MD Obstruction of left Physicians - Urology [address] ureteropelvic junction 2ND FLOOR POD A MS 3016 (UPJ);Horses[place] kidney [address] [place] [address] OFFICE BLDG [phone] [place] [address] Social History Tobacco Use Types Packs/Day Years Used Date Former Smoker Cigarettes Smokeless Tobacco: Never Used Alcohol Use Drinks/Week oz/Week Comments Yes 2-3 yearly Sex Assigned at Date Recorded Not on file as of this encounter Last Filed Vital Signs Vital Sign Reading Time Taken Blood Pressure 136/69 05/19/2017 1:31 PM CDT Pulse 77 05/19/2017 1:31 PM CDT Temperature - - Respiratory Rate - - Oxygen Saturation - - Inhaled Oxygen - - Concentration Weight 87.7 kg (193 lb 6.4 oz) 05/19/2017 1:31 PM CDT Height 154.9 cm (5' 1") 05/19/2017 1:31 PM CDT Body Mass Index 36.54 05/19/2017 1:31 PM CDT in this encounter Instructions * Patient Instructions - Aleah Ojeda - 05/19/2017 1:30 PM CDT [facility] Physicians - Urology Pre-Operative Instructions Surgical Procedure: Open Nephrectomy of Left Moeity of the Horseshoe Kidney Date of Surgery: 07/04/17 Arrival Time at the Admission Office (Main [facility]): Will Call To ensure that your surgery can proceed without delay, you will be contacted by a phone triage nurse from the Preoperative Assessment Clinic (PAC) to complete this process. Please review the information given to you by your surgeon. You will be called by the surgery staff with your day of surgery arrival time between 2:30 - 4:30 PM the business day prior to surgery. If you have not heard from them after 4:30 PM, please call to confirm your arrival time. Pre-Operative Assessment and Instructions: Once you speak to the nurse or are seen in the Pre-Operative Assessment Clinic, you will be given medication instructions. However, if surgery is within 2 weeks , please read and follow the medication instructions below to prepare for surgery before you speak with the phone triage nurse: 14 days prior to surgery: ? Contact your doctor who prescribes any of the following to develop a plan for surgery: o Blood thinners such as aspirin, Aggrenox, Brilinta, Effient, Eliquis, enoxaparin (Lovenox), clopidogrel (Plavix), cilostazol, pentoxifylline (Trental) , Pradaxa, Savaysa, ticlopidine, Xarelto, and warfarin (Coumadin) o Immunosuppresants such as methotrexate, azathioprine, sulfasalazine, everolimus, sirolimus, Humira, Remicade, Enbrel, Simponi, Orencia, Cimzia, Actemra, and Xeljanz o Chemotherapy ? Stop most vitamins, herbals, and supplements including (but not limited to): o Alpha lipoic acid, black cohosh, CoQ10, echinacea, eye vitamins, fish oil, flaxseed oil, garlic, gingko biloba, ginseng, glucosamine/chondroitin, kava, Lovaza, lutein, lysine, multivitamin, red yeast rice, BAKARI-e, saw palmetto, Frost wort, turmeric, valerian root, Vascepa, Vitamin A, Vitamin B complex, Vitamin C, Vitamin E ? You DO NOT need to stop: iron, magnesium, potassium 7 days prior to surgery: ? Stop anti-inflammatory medications such as ibuprofen (Advil, Motrin), naproxen (Aleve), [place], Excedrin, Midol, celecoxib (Celebrex), diclofenac (Voltaren), diflunisal, etodolac, flurbiprofen, indomethacin, ketoprofen, ketorolac, meloxicam, nabumetone, and piroxicam Do not drink alcohol within 24 hours of surgery. Please do not eat or drink anything after midnight. No gum, mints, hard candy, snacks, coffee, etc or chewing tobacco allowed after midnight before surgery. You may brush your teeth but be sure to rinse and spit. Please shower with an over the counter antibacterial soap the evening before or the morning of surgery. If your surgery is scheduled as an outpatient, you must arrange to have someone drive you home and have someone with you 24 hours after anesthesia. If you have any questions, please contact your provider's office at . For emergencies during evenings, nights, weekends, and holidays, contact [facility] hotbed operator and request they contact the on-call Urology Resident at [phone]. in this encounter Progress Notes * Juan Mccray MD - 05/19/2017 1:30 PM CDT Formatting of this note may be different from the original. Date of Service: 05/19/2017 Subjective: Maribel Go is a 67 y.o. female, new patient here for evaluation of horseshoe kidney and left UPJ obstruction. Chief Complaint Patient presents with Other horseshoe kidney History of Present Illness Maribel Go is a 67 y.o. Female, with a past medical history blood clotting disorder, per patient chronically low platelets, hematology evaluation negative per patient, heart disease, hypertension, emphysema, asthma and horseshoe kidney , partial UPJ obstruction and hydronephrosis. In December 2014 developed left flank pain, left ureteral stent since December 2014 with stent exchanges every 6 months, until 06/2016 had difficulty with stent obstruction and exchange 08/2016 and most recent December 2016. She has had chronic left flank pain since stent placement. She was referred by Dr. Phan for evaluation and surgical options to help manage her UPJ obstruction. She presents today for evaluation of increased left flank pain 2 weeks and right lower quadrant pain, increased urinary frequency, nocturia 4. She reports most recent imaging CT scan December 2016. She has taken Ditropan in the past, discontinued secondary to minimal change. History of pyelonephritis in July 2016. She is currently taking amoxicillin for dental infection. No recent urine cultures done. Regarding medical history for surgical planning she has a history of coarctation of the aorta surgery 1969, valve replacement 2010, chronically low platelets most recent 98, per patient hematology evaluation negative. History of COPD, can walk 1 block. However she is short of breath today in office. She denies hematuria, fever chills, nausea vomiting, kidney stones, recurrent urinary tract infections, diabetes Past Medical History: Diagnosis Date Arthritis Asthma Blood clotting disorder (HCC) Heart disease Hypertension Liver disease Other emphysema (HCC) Urinary tract infection Past Surgical History: Procedure Laterality Date HEART VALVE SURGERY HX HEART CATHETERIZATION HX HYSTERECTOMY HX JOINT REPLACEMENT HX TUBAL LIGATION KIDNEY SURGERY OOPHORECTOMY Allergies: Allergies Allergen Reactions Benzonatate ANAPHYLAXIS and RASH Anaprox [Naproxen Sodium] SEE COMMENTS "sores in mouth & nose" Arthrotec [Diclofenac-Misoprostol] STOMACH UPSET Darvocet [Propoxyphene N-Acetaminophen] STOMACH UPSET Diclofenac STOMACH UPSET Hydrocodone STOMACH UPSET Indomethacin STOMACH UPSET Macrobid [Nitrofurantoin Monohyd/M-Cryst] STOMACH UPSET Misoprostol STOMACH UPSET Oxycodone STOMACH UPSET Sulfamethoxazole-Trimethoprim STOMACH UPSET Tolectin [Tolmetin] SEE COMMENTS "affected kidneys" Trimethoprim STOMACH UPSET Social History Social History Marital status: Spouse name: N/A Number of children: N/A Years of education: N/A Social History Main Topics Smoking status: Former Smoker Types: Cigarettes Smokeless tobacco: Never Used Alcohol use Yes Comment: 2-3 yearly Drug use: No Sexual activity: Not Currently Partners: Male Other Topics Concern None Social History Narrative None Family History Problem Relation Age of Onset Anesthetic Complication Mother Bleeding Disorders Mother Cancer Mother Heart Attack Mother Heart Disease Mother Hypertension Mother Kidney Disease Mother Hypertension Father Diabetes Brother Hypertension Brother Cancer Maternal Grandmother Diabetes Maternal Grandmother Hypertension Maternal Grandmother Review of Systems Constitutional: Positive for activity change, chills and fatigue. Negative for appetite change, diaphoresis, fever and unexpected weight change. HENT: Positive for hearing loss. Negative for congestion, mouth sores and sinus pressure. Eyes: Positive for visual disturbance. Respiratory: Positive for cough and shortness of breath. Negative for apnea and chest tightness. Cardiovascular: Positive for palpitations. Negative for chest pain and leg swelling. Gastrointestinal: Positive for abdominal pain and constipation. Negative for anal bleeding, blood in stool, diarrhea, nausea, rectal pain and vomiting. Genitourinary: Positive for enuresis, flank pain, frequency and urgency. See HPI Musculoskeletal: Positive for arthralgias, back pain, gait problem and myalgias. Skin: Negative for rash and wound. Neurological: Positive for seizures, syncope, weakness and light-headedness. Negative for dizziness, tremors, numbness and headaches. Hematological: Negative for adenopathy. Bruises/bleeds easily. Psychiatric/Behavioral: Negative for decreased concentration and dysphoric mood. The patient is nervous/anxious. Objective: albuterol 0.5% (PROVENTIL; VENTOLIN) 5 mg/mL nebulizer solution Inhale 2.5 mg solution by nebulizer as directed every 4 hours as needed for Wheezing. amoxicillin (AMOXIL) 500 mg capsule Take 500 mg by mouth every 8 hours. docusate (COLACE) 100 mg capsule Take 100 mg by mouth daily. doxazosin (CARDURA) 8 mg tablet Take 8 mg by mouth daily. FLUTICASONE/SALMETEROL (ADVAIR DISKUS IN) Inhale by mouth into the lungs as Needed. furosemide (LASIX) 40 mg tablet Take 40 mg by mouth as Needed. LACTOBACILLUS RHAMNOSUS GG (CULTURELLE PO) Take by mouth. lisinopril-hydrochlorothiazide (PRINZIDE, ZESTORETIC) 20-12.5 mg tablet Take 1 tablet by mouth every morning. oxybutynin XL (DITROPAN XL) 15 mg tablet Take 15 mg by mouth daily. PHENYTOIN SODIUM EXTENDED (DILANTIN EXTENDED PO) Take 400 mg by mouth daily. potassium chloride SR (K-DUR) 10 mEq tablet Take 10 mEq by mouth as Needed. Take with a meal and a full glass of water. rosuvastatin (CRESTOR) 10 mg tablet Take 10 mg by mouth daily. vitamins, B complex tab Take 1 tablet by mouth daily. vitamins, multi PED chewable Chew by mouth daily. Vitals: 05/19/17 1331 BP: 136/69 Pulse: 77 Weight: 87.7 kg (193 lb 6.4 oz) Height: 154.9 cm (61") Body mass index is 36.54 kg/(m^2). Physical Exam Constitutional: She is oriented to person, place, and time. She appears well- developed and well-nourished. HENT: Head: Normocephalic. Eyes: Conjunctivae are normal. Neck: Normal range of motion. Cardiovascular: Normal rate. Pulmonary/Chest: Effort normal. Shortness of breath in office, per patient chronic, baseline Abdominal: Soft. Obese Musculoskeletal: Normal range of motion. Neurological: She is alert and oriented to person, place, and time. Skin: Skin is warm and dry. Psychiatric: She has a normal mood and affect. Most Recent Available labs: Comprehensive Metabolic Profile No results found for: NA, K, CL, CO2, GAP, BUN, CR, GLU No results found for: CA , PO4, ALBUMIN, TOTPROT, ALKPHOS, AST, ALT, TOTBILI, GFR, GFRAA Urine No results found for: UCOLOR, TURBID, USPGR, UPH, UPROTEIN, UAGLU, UKET, UBILE, UBLD, UROB No results found for: UNIT, ULEU, SULFSALAC, ICTOTEST, WAYLON, UWBC , URBC, UCOMMENT No results found for: CULTURE Reviewed outside labs April 09, 2017 WBC 4.4 Hemoglobin 12.5 Platelets 98 Creatinine 0.7 GFR 89 [facility] imaging: none Outside imaging: CT abdomen pelvis stone protocol January 20, 2017-[facility] See report in chart Impression interval significant left hydronephrosis, left perinephric fat stranding despite continued left ureteral stent. Cannot exclude pyelonephritis. Redemonstration of small stone in the left lower aspect of the horseshoe kidney collecting system. There is cortical thinning of the left renal cortex. Patient brought in disc however most recent imaging is nuclear medicine renal scan March 01 2015 Cardiology study March 12, 2017 We will taken to radiology to have imported Assessment and Plan: Problem Obstruction of Left Ureteropelvic Junction (Upj) Problem List Items Addressed This Visit Obstruction of left ureteropelvic junction (UPJ) Request recent CT scan 12/2016 - note sent to [facility] Recommend current [place] Renal Scan with Lasix-patient elects local facility CT images that she brought (most recent 11/2013) discs taken to Radiology to be imported Will need to arrange stent exchange local vs [facility]-patient elects local Urine C&S today-no antibiotics Cardiology clearance-from local nursing staffing coordinator Need letter from [employer] Setting Machine Operator for surgical planning-local service trainer Planning Open Nephrectomy of Left Moeity of the Horseshoe Kidney -July 04, 2017 Consent signed in office Panel 1 Surgeon Role Juan Mccray MD Primary Procedure Laterality Anesthesia NEPHRECTOMY Open Nephrectomy of Left Moeity of the Horseshoe Kidney [19464 (CPT )] Left Defer to Anesthesia NEPHRECTOMY PARTIAL [71095 (CPT)] Left General Relevant Orders NM RENAL FUNCTION W LASIX CULTURE-URINE W/SENSITIVITY Horseshoe kidney Relevant Orders NM RENAL FUNCTION W LASIX CULTURE-URINE W/SENSITIVITY Orders Placed This Encounter CULTURE-URINE W/SENSITIVITY (Clinic Collect) NM RENAL FUNCTION W LASIX Diogenes Gould PA-C Urology Dr Mccray also met with patient and determined plan of care Will send letter to PMD - Aaron Lora ATTESTATION I personally interviewed and examined the patient. I have reviewed the history , physical, impression and plan outlined by the Physician Correctional Agency Director. The patient presents with (HPI) referral by Dr. Phan for further evaluation of left moeity obstruction in horseshoe kidney. Patient with multiple comorbid conditions and currently undergoing Q4 month stent changes. She would like a more definitive treatment. On examination there is female chronically short of breath with mild suprapubic discomfort, Imaging shows a chronically dilated left moeity collecting system of a horseshoe kidney. Most recent renal scan in 2014 showed a poorly functioning entity of less than 30% on differential. My impression is likely a poorly functioning and chronically obstructed left moeity of horseshoe kidney. She is having issues with pain with stent changes, My plan is get renal scan to determine current differential function, tentatively schedule for left open partial nephrectomy of horseshoe kidney. She will need hematology and cardiology clearance prior to surgery. All risks and benefits of the procedure were discussed in depth. All questions answered. Consent obtained. She does feel that she need her ureteral stent changed out relatively soon. She is going to have that done locally with Dr. Phan. Complex decision making. Staff name: Juan Mccray MD Date: 05/21/2017 in this encounter Miscellaneous Notes * Assessment & Plan Note - Diogenes Walker PA-C - 05/19/2017 2:59 PM CDT Associated Problem(s): Obstruction of left ureteropelvic junction (UPJ) Formatting of this note may be different from the original. Request recent CT scan 12/2016 - note sent to [facility] Recommend current [place] Renal Scan with Lasix-patient elects local facility CT images that she brought (most recent 11/2013) discs taken to Radiology to be imported Will need to arrange stent exchange local vs [facility]-patient elects local Urine C&S today-no antibiotics Cardiology clearance-from local nursing staffing coordinator Need letter from [employer] Setting Machine Operator for surgical planning-local service trainer Planning Open Nephrectomy of Left Moeity of the Horseshoe Kidney -July 04, 2017 Consent signed in office Panel 1 Surgeon Role Juan Mccray MD Primary Procedure Laterality Anesthesia NEPHRECTOMY Open Nephrectomy of Left Moeity of the Horseshoe Kidney [76125 (CPT )] Left Defer to Anesthesia NEPHRECTOMY PARTIAL [13232 (CPT)] Left General in this encounter Plan of Treatment Name Priority Associated Diagnoses Order Schedule NM RENAL FUNCTION W LASIX Routine Obstruction of left Expected: 2016 ureteropelvic junction (Approximate), Expires: (UPJ) 05/19/2018 Horseshoe kidney as of this encounter Results * CULTURE-URINE W/SENSITIVITY [...] Urine - Urine, Outpatient MAIN LAB [address] [place] [address] Organism Antibiotic Method Susceptibility <100,000 organisms/ml Trimethsulfa [...]
--- OUTSIDE RECORDS SUMMARY | 2017-07-12 15:02 | XMS REPORT | Encounter Summary ---
Author Author [facility] Organization [facility] Address Unknown Phone Unavailable Care Team Providers Care Petrophysicist Name Role Phone PCP Unavailable Encounter Details Date Type Department Care Team Description 05/21/2017 Ancillary Rad Outpatient, Radiologist Diagnosis unknown Orders [address] [place] [address] Social History Tobacco Use Types Packs/Day Years Used Date Former Smoker Cigarettes Smokeless Tobacco: Never Used Alcohol Use Drinks/Week oz/Week Comments Yes 2-3 yearly Sex Assigned at Date Recorded Not on file as of this encounter Plan of Treatment Not on fileas of this encounter Results * NM MISC EXTERNAL IMAGING (03/12/2017) Narrative This order has been auto finalized and does not contain a result. * GENERAL RAD ABDOMEN EXTERNAL IMAGING (01/20/2017 12:15 AM) Narrative This order has been auto finalized and does not contain a result. * CT ABD/PEL EXTERNAL IMAGING (01/20/2017) Narrative This order has been auto finalized and does not contain a result. * GENERAL RAD ABDOMEN EXTERNAL IMAGING (09/16/2016) Narrative This order has been auto finalized and does not contain a result. * GENERAL RAD ABDOMEN EXTERNAL IMAGING (09/04/2016 12:15 AM) Narrative This order has been auto finalized and does not contain a result. * CT ABD/PEL EXTERNAL IMAGING (09/04/2016) Narrative This order has been auto finalized and does not contain a result. * GENERAL RAD ABDOMEN EXTERNAL IMAGING (07/16/2016) Narrative This order has been auto finalized and does not contain a result. * US ABDOMEN EXTERNAL IMAGING (03/11/2016) Narrative This order has been auto finalized and does not contain a result. * GENERAL RAD ABDOMEN EXTERNAL IMAGING (12/28/2015) Narrative This order has been auto finalized and does not contain a result. * US ABDOMEN EXTERNAL IMAGING (06/20/2015) Narrative This order has been auto finalized and does not contain a result. * GENERAL RAD ABDOMEN EXTERNAL IMAGING (03/01/2015) Narrative This order has been auto finalized and does not contain a result. * GENERAL RAD ABDOMEN EXTERNAL IMAGING (12/28/2014) Narrative This order has been auto finalized and does not contain a result. * US ABDOMEN EXTERNAL IMAGING (12/05/2014) Narrative This order has been auto finalized and does not contain a result. * NM MISC EXTERNAL IMAGING (02/18/2014) Narrative This order has been auto finalized and does not contain a result. * CT ABD/PEL EXTERNAL IMAGING (12/16/2013) Narrative This order has been auto finalized and does not contain a result. in this encounter Visit Diagnoses Diagnosis Diagnosis unknown Other unknown and unspecified cause of morbidity or mortality in this encounter
--- OUTSIDE RECORDS SUMMARY | 2017-07-12 15:02 | XMS REPORT | Encounter Summary ---
Author Author [facility] Organization [facility] Address Unknown Phone Unavailable Care Team Providers Care Play Back Operator Name Role Phone PCP Unavailable Encounter Details Date Type Department Care Team Description 05/28/2017 Documentation [facility] Juan Mccray MD Physicians - Urology [address] FLOOR POD [address] [place] [address] [place] [address] OFFICE BLDG [phone] [place] [address] Social History Tobacco Use Types Packs/Day Years Used Date Former Smoker Cigarettes Smokeless Tobacco: Never Used Alcohol Use Drinks/Week oz/Week Comments Yes 2-3 yearly Sex Assigned at Date Recorded Not on file as of this encounter Progress Notes * Aleah Ojeda - 05/28/2017 9:57 AM CDT PA approved for LINEZOLID Effective 07/26/16 Expiration 07/27/17 Ref # [id number]. in this encounter Plan of Treatment Not on fileas of this encounter Visit Diagnoses Not on filein this encounter
--- OUTSIDE RECORDS SUMMARY | 2017-07-12 15:02 | XMS REPORT | Encounter Summary ---
Author Author [facility] Organization [facility] Address Unknown Phone Unavailable Care Team Providers Care Assurance Sourcing Manager Name Role Phone PCP Unavailable Encounter Details Date Type Department Care Team Description 05/22/2017 Orders Only [facility] Juan Mccray MD Infection, staphylococcal Physicians - Urology [address] [facility] (Primary Dx) 2ND FLOOR POD A [address] [place] [address] OFFICE BLDG [phone] [place] [address] Social History Tobacco Use Types Packs/Day Years Used Date Former Smoker Cigarettes Smokeless Tobacco: Never Used Alcohol Use Drinks/Week oz/Week Comments Yes 2-3 yearly Sex Assigned at Date Recorded Not on file as of this encounter Plan of Treatment Not on fileas of this encounter Visit Diagnoses Diagnosis Infection, staphylococcal - Primary Unspecified staphylococcus infection in conditions classified elsewhere and of unspecified site in this encounter
--- OUTSIDE RECORDS SUMMARY | 2017-07-12 15:04 | XMS REPORT | Continuity of Care Document ---
Author Author [facility] Organization [facility] Address Unknown Phone Unavailable Allergies Active Description Code Type Severity Reaction Onset Reported/Identified Relationship to Patient Clinical Status Yes hydrocodone [id number] Drug Allergy Unknown N/A 11/07/2010 Yes naproxen sodium [id number] Drug Allergy Unknown N/A 11/07/2010 Yes benzonatate [id number] Drug Allergy Moderate RASH 08/08/2013 Yes phenazopyridine [id number] Drug Allergy Severe GI UPSET 06/05/2016 Yes sulfamethoxazole [id number] Drug Allergy Severe BREATHING 06/05/2016 Yes tolmetin [id number] Drug Allergy Severe N/A 06/05/2016 Yes trimethoprim [id number] Drug Allergy Severe BREATHING 06/05/2016 Yes diclofenac [id number] Drug Allergy Mild GI UPSET 06/05/2016 Yes hydrocodone [id number] Drug Allergy Mild GI UPSET 06/05/2016 Yes indomethacin [id number] Drug Allergy Mild N/A 06/05/2016 Yes misoprostol [id number] Drug Allergy Mild GI UPSET 06/05/2016 Yes naproxen sodium [id number] Drug Allergy Mild SORES IN MOUTH 06/05/2016 Yes DARVOCET DARVOCET Unknown N/A 06/05/2016 Yes tolmetin sodium [id number] Drug Allergy Unknown N/A 06/05/2016 Medications There is no data. Problems Date Dx Coded Attending Type Code Diagnosis Diagnosed By 06/05/2016 HENRIK TORRES MD, Ot Z01.812 ENCOUNTER FOR PREPROCEDURAL LABORATORY E 06/05/2016 HENRIK TORRES MD, Ot Z01.812 ENCOUNTER FOR PREPROCEDURAL LABORATORY E 06/05/2016 HENRIK TORRES MD, Ot M17.9 OSTEOARTHRITIS OF KNEE, UNSPECIFIED 06/05/2016 HENRIK TORRES MD, Ot R53.83 OTHER FATIGUE 06/05/2016 ZAFUTA MD, HENRIK P Ot Z01.810 ENCOUNTER FOR PREPROCEDURAL CARDIOVASCUL 06/05/2016 HENRIK TORRES MD Ot Z01.811 ENCOUNTER FOR PREPROCEDURAL RESPIRATORY 06/05/2016 HENRIK TORRES MD Ot Z01.812 ENCOUNTER FOR PREPROCEDURAL LABORATORY E 06/05/2016 HENRIK TORRSE MD Ot Z11.2 ENCOUNTER FOR SCREENING FOR [...] PREPROCEDURAL EXAMIN 10/23/2016 HENRIK TORRES MD Ot G40.909 EPILEPSY, UNSP, NOT INTRACTABLE, WITHOUT 10/23/2016 HENRIK TORRES MD Ot I10 ESSENTIAL (PRIMARY) HYPERTENSION 10/23/2016 HENRIK TORRES MD Ot M23.8X2 OTHER INTERNAL DERANGEMENTS OF LEFT KNEE 10/23/2016 HENRIK TORRES MD Ot Z11.2 ENCOUNTER FOR SCREENING FOR OTHER BACTER 10/23/2016 HENRIK TORRES MD Ot 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 10/23/2016 HENRIK TORRES MD Ot Z87.891 PERSONAL HISTORY OF NICOTINE DEPENDENCE 10/23/2016 HENRIK TORRES MD Ot Z95.2 PRESENCE OF PROSTHETIC HEART VALVE 10/23/2016 HENRIK TORRES MD Ot Z96.652 PRESENCE OF LEFT ARTIFICIAL KNEE JOINT 10/24/2016 HENRKI TORRES MD Ot G40.909 EPILEPSY, UNSP, NOT INTRACTABLE, WITHOUT 10/24/2016 HENRIK TORRES MD Ot I10 ESSENTIAL (PRIMARY) HYPERTENSION 10/24/2016 HENRIK TORRES MD Ot M23.8X2 OTHER INTERNAL DERANGEMENTS OF LEFT KNEE 10/24/2016 HENRIK TORRES MD Ot Z11.2 ENCOUNTER FOR SCREENING FOR OTHER BACTER 10/24/2016 HENRIK TORRES MD Ot Z79.899 OTHER NURSING HOME (CURRENT) DRUG THERAPY 10/24/2016 HENRIK TORRES MD [...] 10/24/2016 HENRIK TORRES MD Ot Z79.899 OTHER NURSING HOME (CURRENT) DRUG THERAPY 10/24/2016 HENRIK TORRES MD Ot Z87.891 PERSONAL HISTORY OF NICOTINE DEPENDENCE 10/24/2016 HENRIK TORRES MD Ot Z95.2 PRESENCE OF PROSTHETIC HEART VALVE 10/24/2016 HENRIK TORRES MD Ot Z96.652 PRESENCE OF LEFT ARTIFICIAL KNEE JOINT 10/31/2016 HENRIK TORRES MD Ot Z47.1 AFTERCARE FOLLOWING JOINT REPLACEMENT COLLINS 10/31/2016 HENRIK TORRES MD Ot Z96.652 PRESENCE OF LEFT ARTIFICIAL KNEE JOINT 12/04/2016 HENRIK TORRES MD Ot Z47.1 AFTERCARE FOLLOWING JOINT REPLACEMENT COLLINS 12/04/2016 HENRIK TORRES MD Ot Z96.652 PRESENCE OF LEFT ARTIFICIAL KNEE JOINT 12/12/2016 HENRIK TORRES MD Ot Z47.1 AFTERCARE FOLLOWING JOINT REPLACEMENT COLLINS 12/12/2016 HENRIK TORRES MD Ot Z96.652 PRESENCE OF LEFT ARTIFICIAL KNEE JOINT 12/30/2016 HENRIK TORRES MD Ot Z47.1 AFTERCARE FOLLOWING JOINT REPLACEMENT COLLINS 12/30/2016 HENRIK TORRES MD Ot Z96.652 PRESENCE OF LEFT ARTIFICIAL KNEE JOINT 05/27/2017 SUZETTE MARK MD Ot G40.909 EPILEPSY, UNSP, NOT INTRACTABLE, WITHOUT 05/27/2017 SUZETTE MARK MD, Ot J44.9 CHRONIC OBSTRUCTIVE PULMONARY DISEASE, U 05/27/2017 SUZETTE MARK MD, Ot 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 05/27/2017 SUZETTE MARK MD, Ot L29.9 PRURITUS, UNSPECIFIED 05/27/2017 SUZETTE MARK MD, Ot 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, UNSPECIF 05/27/2017 SUZETTE MARK MD, Ot R06.2 WHEEZING 05/27/2017 SUZETTE MARK MD, Ot T37.0X5A ADVERSE EFFECT OF SULFONAMIDES, INITIAL 05/27/2017 SUZETTE MARK MD, Ot 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 05/27/2017 SUZETTE MARK MD, Ot Z87.891 PERSONAL HISTORY OF NICOTINE DEPENDENCE 05/27/2017 SUZETTE MARK MD, Ot Z95.2 PRESENCE OF PROSTHETIC HEART VALVE 05/27/2017 SUZETTE MARK MD, Ot Z95.828 PRESENCE OF OTHER VASCULAR IMPLANTS AND Procedures Code Description Performed By Performed On [id number] REPLACE OF L KNEE JT WITH SYNTH SUB, BUZZ 06/12/2016 Results Test Result Range Methicillin resistant Staphylococcus aureus (MRSA) screening culture - 14:00 Methicillin resistant Staphylococcus aureus (MRSA) screening culture NEG [facility] Comprehensive metabolic panel - 06/05/16 14:10 Serum or plasma sodium measurement (moles/volume) 140 mmol/L 135-145 Serum or plasma potassium measurement (moles/volume) 4.5 mmol/L 3.6-5.0 Serum or plasma chloride measurement (moles/volume) 105 mmol/L 98-107 Carbon dioxide 27 mmol/L 21-32 Serum or plasma anion gap determination (moles/volume) 8 mmol/L 5-14 Serum or plasma urea nitrogen measurement (mass/volume) 19 mg/dL 7-18 Serum or plasma creatinine measurement (mass/volume) 0.80 mg/dL 0.60-1.30 Serum or plasma urea nitrogen/creatinine mass [...] 14:10 Blood leukocytes automated count (number/volume) 3.6 10*3/uL 4.3-11.0 Blood erythrocytes automated count (number/volume) 4.52 10*6/uL 4.35-5.85 Venous blood hemoglobin measurement (mass/volume) 13.5 [...] Automated blood platelet mean volume measurement 10.0 [foz_us] 7.4-10.4 Automated blood neutrophils/100 leukocytes 62 % [...] Urine pH measurement by test strip 7 5-9 Specific gravity of urine by test strip 1.010 1.016- 1.022 Urine protein assay by test strip, semi-quantitative [...] 06:27 Blood leukocytes automated count (number/volume) 3.1 10*3/uL 4.3-11.0 Blood erythrocytes automated count (number/volume) 4.24 10*6/uL 4.35-5.85 Venous blood hemoglobin measurement (mass/volume) 12.7 [...] Automated blood platelet mean volume measurement 9.7 [foz_us] 7.4-10.4 PLATELET PHERESIS LR - 06/12/16 06:27 PLATELET PHERESIS LR TRANSFUSED 06/12/16 0905 [facility] Blood type T Indirect antibody screen panel - 06/12/16 06:27 ABO+Rh group ON NRG Transfusion band number [id number] NR Blood group antibody screen NEGATIVE NR Automated blood platelet count (count/volume) - 06/12/16 08:35 Automated blood platelet count (count/volume) 93 10*3/uL 130-400 Blood leukocytes automated count (number/volume) - 06/12/16 10:20 Blood leukocytes automated count (number/volume) 6.5 10*3 4.3-11.0 TRANSFUSION REACTION BB TESTS - 06/12/16 10:20 TRANSFUSION RX BLOOD COMPONENT B POS PLTPH LR NR [id number] NR [id number] OK [facility] [id number] NORMAL NR Bacterial blood culture NOT INDICATED NR Serum ragweed IgE antibody assay INCREASED NRG Patient symptomsSpost transfusion reaction ITCHING NRG AppearanceSpost transfusion reaction NEGATIVE NRG Appearance NEGATIVE NRG Direct antiglobulin test.poly specific reagentSpos NEGATIVE NRG Direct antiglobulin test.poly specific reagent NOT INDICATED NRG Direct antiglobulin test.IgG specific reagent NOT INDICATED NRG Direct antiglobulin test.complement C3 specific re NOT INDICATED NRG Transfusion reaction SCANNED TO EMR NR Complete blood count (CBC) with automated white blood cell (WBC) differential - 06/13/16 04:52 Blood leukocytes automated count (number/volume) 5.2 10*3/uL 4.3-11.0 Blood erythrocytes automated count (number/volume) 3.30 10*6/uL 4.35-5.85 Venous blood hemoglobin measurement (mass/volume) 9.9 [...] Automated blood platelet mean volume measurement 9.8 [foz_us] 7.4-10.4 Automated blood neutrophils/100 leukocytes 73 % [...] Serum or plasma sodium measurement (moles/volume) 140 mmol/L 135-145 Serum or plasma potassium measurement (moles/volume) 4.4 mmol/L 3.6-5.0 Serum or plasma chloride measurement (moles/volume) 109 mmol/L 98-107 Carbon dioxide 26 mmol/L 21-32 Serum or plasma anion gap determination (moles/volume) 5 mmol/L 5-14 Serum or plasma urea nitrogen measurement (mass/volume) 15 mg/dL 7-18 Serum or plasma creatinine measurement (mass/volume) 0.78 mg/dL 0.60-1.30 Serum or plasma urea nitrogen/creatinine mass [...] or plasma iron measurement (mass/volume) 50 % 35- 180 Complete blood count (CBC) with automated white blood cell (WBC) differential - 06/14/16 05:02 Blood leukocytes automated count (number/volume) 3.7 10*3/uL 4.3-11.0 Blood erythrocytes automated count (number/volume) 2.79 10*6/uL 4.35-5.85 Venous blood hemoglobin measurement (mass/volume) 8.4 [...] Automated blood platelet mean volume measurement 10.0 [foz_us] 7.4-10.4 Automated blood neutrophils/100 leukocytes 67 % [...] Serum or plasma sodium measurement (moles/volume) 138 mmol/L 135-145 Serum or plasma potassium measurement (moles/volume) 4.2 mmol/L 3.6-5.0 Serum or plasma chloride measurement (moles/volume) 106 mmol/L 98-107 Carbon dioxide 24 mmol/L 21-32 Serum or plasma anion gap determination (moles/volume) 8 mmol/L 5-14 Serum or plasma urea nitrogen measurement (mass/volume) 8 mg/dL 7-18 Serum or plasma creatinine measurement (mass/volume) 0.69 mg/dL 0.60-1.30 Serum or plasma urea nitrogen/creatinine mass [...] Urine pH measurement by test strip 6 5-9 Specific gravity of urine by test strip 1.015 1.016- 1.022 Urine protein assay by test strip, semi-quantitative [...] culture - 06/14/16 18:25 Bacterial urine culture [id number] NRG COLONY COUNT >100,000/ML NRG FTX;REPORTABLE SENSITIVITY REPORTED AT 0743, 1-16 NRG Bacterial susceptibility panel - 06/14/16 18:25 Oxacillin susceptibility test by minimum inhibitory concentration > = NRG Gentamicin susceptibility test by minimum inhibitory concentration < = NRG Trimethoprim/sulfamethoxazole susceptibility test by minimum inhibitoryconcentration <= NRG Vancomycin susceptibility test by minimum inhibitory concentration < = NRG Levofloxacin susceptibility test by minimum inhibitory [...] 06:05 Blood leukocytes automated count (number/volume) 3.9 10*3/uL 4.3-11.0 Blood erythrocytes automated count (number/volume) 2.33 10*6/uL 4.35-5.85 Venous blood hemoglobin measurement (mass/volume) 6.9 [...] Automated blood platelet mean volume measurement 10.3 [foz_us] 7.4-10.4 Automated blood neutrophils/100 leukocytes 70 % [...] Serum or plasma sodium measurement (moles/volume) 136 mmol/L 135-145 Serum or plasma potassium measurement (moles/volume) 3.8 mmol/L 3.6-5.0 Serum or plasma chloride measurement (moles/volume) 105 mmol/L 98-107 Carbon dioxide 23 mmol/L 21-32 Serum or plasma anion gap determination (moles/volume) 8 mmol/L 5-14 Serum or plasma urea nitrogen measurement (mass/volume) 14 mg/dL 7-18 Serum or plasma creatinine measurement (mass/volume) 0.77 mg/dL 0.60-1.30 Serum or plasma urea nitrogen/creatinine mass [...] 06:09 RED CELLS LEUKO REDUCED AS1 TRANSFUSED 06/15/16 1520 NR Blood type T Indirect antibody screen panel - 06/15/16 06:09 ABO+Rh group ON NRG Transfusion band number [id number] NR Blood group antibody screen NEGATIVE NRG Complete blood count (CBC) with automated white blood cell (WBC) differential - 06/16/16 05:51 Blood leukocytes automated count (number/volume) 4.1 10*3/uL 4.3-11.0 Blood erythrocytes automated count (number/volume) 3.01 10*6/uL 4.35-5.85 Venous blood hemoglobin measurement (mass/volume) 8.8 [...] Automated blood platelet mean volume measurement 10.1 [foz_us] 7.4-10.4 Automated blood neutrophils/100 leukocytes 70 % [...] Serum or plasma sodium measurement (moles/volume) 137 mmol/L 135-145 Serum or plasma potassium measurement (moles/volume) 4.0 mmol/L 3.6-5.0 Serum or plasma chloride measurement (moles/volume) 107 mmol/L 98-107 Carbon dioxide 21 mmol/L 21-32 Serum or plasma anion gap determination (moles/volume) 9 mmol/L 5-14 Serum or plasma urea nitrogen measurement (mass/volume) 14 mg/dL 7-18 Serum or plasma creatinine measurement (mass/volume) 0.75 mg/dL 0.60-1.30 Serum or plasma urea nitrogen/creatinine mass [...] Staphylococcus aureus (MRSA) screening culture NEG NRG Complete blood count (CBC) with automated white blood cell (WBC) differential - 05/26/17 12:05 Blood leukocytes automated count (number/volume) 4.8 10*3/uL 4.3-11.0 Blood erythrocytes automated count (number/volume) 4.30 10*6/uL 4.35-5.85 Venous blood hemoglobin measurement (mass/volume) 12.8 g/dL 11.5-16.0 Blood hematocrit (volume fraction) 36 % 35-52 Automated erythrocyte mean corpuscular volume 84 [foz_us] 80-99 Automated erythrocyte mean corpuscular hemoglobin (mass per erythrocyte) 30 pg 25-34 Automated erythrocyte mean corpuscular hemoglobin concentration measurement ( mass/volume) 35 g/dL 32-36 Automated erythrocyte distribution width ratio 12.3 % 10.0-14.5 Automated blood platelet count (count/volume) 92 10*3/uL 130-400 Automated blood platelet mean volume measurement 9.4 [foz_us] 7.4-10.4 Automated blood neutrophils/100 leukocytes 69 % 42-75 Automated blood lymphocytes/100 leukocytes 24 % 12-44 Blood monocytes/100 leukocytes 7 % 0-12 Automated blood eosinophils/100 leukocytes 0 % 0-10 Automated blood basophils/100 leukocytes 0 % 0-10 Blood neutrophils automated count (number/volume) 3.3 10*3 1.8-7.8 Blood lymphocytes automated count (number/volume) 1.1 10*3 1.0-4.0 Blood monocytes automated count (number/volume) 0.3 10*3 0.0-1.0 Automated eosinophil count 0.0 10*3/uL 0.0-0.3 Automated blood basophil count (count/volume) 0.0 10*3/uL 0.0-0.1 Whole blood basic metabolic panel - 05/26/17 12:05 Serum or plasma sodium measurement (moles/volume) 138 mmol/L 135-145 Serum or plasma potassium measurement (moles/volume) 4.0 mmol/L 3.6-5.0 Serum or plasma chloride measurement (moles/volume) 105 mmol/L 98-107 Carbon dioxide 21 mmol/L 21-32 Serum or plasma anion gap determination (moles/volume) 12 mmol/L 5-14 Serum or plasma urea nitrogen measurement (mass/volume) 17 mg/dL 7-18 Serum or plasma creatinine measurement (mass/volume) 0.69 mg/dL 0.60-1.30 Serum or plasma urea nitrogen/creatinine mass ratio 25 NRG Serum or plasma creatinine measurement with calculation of estimated glomerular filtration rate > NRG Serum or plasma glucose measurement (mass/volume) 93 mg/dL 70-105 Serum or plasma calcium measurement (mass/volume) 9.1 mg/dL 8.5-10.1 Complete urinalysis with reflex to culture - 05/27/17 00:05 Urine color determination YELLOW NRG Urine clarity determination SLIGHTLY CLOUDY NRG Urine pH measurement by test strip 6.5 5-9 Specific gravity of urine by test strip 1.010 1.016- 1.022 Urine protein assay by test strip, semi-quantitative [...] erythrocyte count by microscopy (number/high power field) RARE NRG Automated urine sediment leukocyte count by microscopy (number/high power field ) [HPF] NRG Bacteria detection in urine sediment by light microscopy FEW NRG Squamous epithelial cells detection in urine sediment by light microscopy 2-5 NRG Crystals detection in urine sediment by light microscopy PRESENT NRG Casts detection in urine sediment by light microscopy NONE NRG Mucus detection in urine sediment by light microscopy NEGATIVE NRG Complete urinalysis with reflex to culture YES NRG Amorphous sediment detection in urine sediment by light microscopy FEW KENRICK URATES NRG Bacterial urine culture - 05/27/17 00:05 Bacterial urine culture [id number] NRG COLONY COUNT >100,000/ML NRG Encounters ACCT No. Visit Date/Time Discharge Status Pt. Type Provider Facility Loc./Unit Complaint [id number] 05/26/2017 13:30:00 05/27/2017 12:30:00 DIS Inpatient DEEDEE KELLER, SUZETTE Leon [facility] 4TH ANAPHYLAXIS [id number] 12/31/2016 00:09:00 12/31/2016 23:59:59 CLS Preadmit HENRIK TORRES MD [facility] REHAB S/P L TKR [id number] 11/04/2016 08:07:00 12/30/2016 00:01:00 DIS Outpatient HENRIK TORRES MD [facility] REHAB S/P L TKR [id number] 10/23/2016 06:29:00 10/23/2016 10:23:00 DIS Outpatient HENRIK TORRES MD [facility] SDC LEFT KNEE ADHESIONS CAPSULE [id number] 10/17/2016 05:36:00 10/17/2016 11:17:00 DIS Outpatient HENRIK TORRES MD [facility] PREOP LEFT KNEE ADHESIONS CAPSULE [id number] 09/27/2016 08:16:00 09/30/2016 00:01:00 DIS Outpatient HENRIK TORRES MD [facility] REHAB S/P L TKR [id number] 06/12/2016 05:55:00 06/16/2016 12:25:00 DIS Inpatient HENRIK TORRES MD [facility] 4TH LEFT KNEE OA [id number] 06/05/2016 13:24:00 06/05/2016 14:00:00 DIS Outpatient HENRIK TORRES MD [facility] PREOP LEFT KNEE OA [id number] 08/08/2013 20:55:00 08/08/2013 23:05:00 DIS Emergency [id number] 04/25/2013 22:42:00 04/25/2013 23:30:00 DIS Emergency
[2017-07-12] MEDS ORDERED: ONDANSETRON 4 MG/2 ML (SDV) Z0FRAN ONE (15:25)
[2017-07-12] MEDS ORDERED: NS IV 1000 ML 1,000 ML ONE (15:26)
[2017-07-12] MEDS ORDERED: ONDANSETRON 4 MG/2 ML (SDV) Z0FRAN IVP ONE (15:30)
[2017-07-12] MEDS ORDERED: NS IV 1000 ML 1,000 ML IV SCH (15:30)
[2017-07-12 15:33] LABS: BASOPHILS % (AUTO) 0 % (0-10); EOSINOPHILS # (AUTO) 0.1 10^3/uL (0.0-0.3); EOSINOPHILS % (AUTO) 1 % (0-10); LYMPHOCYTES # (AUTO) 0.8 X 10^3 (1.0-4.0); LYMPHOCYTES % (AUTO) 8 % (12-44); MEAN CORPUSCULAR HEMOGLOBIN 30 PG (25-34); MEAN CORPUSCULAR HGB CONC 33 G/DL (32-36); MEAN CORPUSCULAR VOLUME 88 FL (80-99); MEAN PLATELET VOLUME 9.1 FL (7.4-10.4); MONOCYTES # (AUTO) 0.8 X 10^3 (0.0-1.0); MONOCYTES % (AUTO) 7 % (0-12); NEUTROPHILS # (AUTO) 9.2 X 10^3 (1.8-7.8); NEUTROPHILS % (AUTO) 85 % (42-75); PLATELET COUNT 227 10^3/uL (130-400); RED CELL DISTRIBUTION WIDTH 14.8 % (10.0-14.5); WHITE BLOOD COUNT 10.9 10^3/uL (4.3-11.0)
[2017-07-12] MEDS ORDERED: diphenhydrAMINE 50 MG/ML INJ (BENADRYL) IM ONE (15:45)
[2017-07-12] MEDS ORDERED: PROMETHAZINE INJ 25 MG/ML (PHENERGAN) AMP IVP ONE (15:45)
[2017-07-12] MEDS ORDERED: MUPIROCIN 2% OINT 22 GM (BACTROBAN) TUBE ONE (15:49)
[2017-07-12 15:50] LABS: ALBUMIN 3.8 GM/DL (3.2-4.5); BILIRUBIN,TOTAL 0.4 MG/DL (0.1-1.0); CALCIUM 9.6 MG/DL (8.5-10.1); CREATININE SERUM 1.43 MG/DL (0.60-1.30); POTASSIUM 4.5 MMOL/L (3.6-5.0); TOTAL PROTEIN 7.7 GM/DL (6.4-8.2)
[2017-07-12 15:52] LABS: LYMPHOCYTES % (MANUAL) 8 %; NEUTROPHILS % (MANUAL) 84 %
--- NOTE | 2017-07-12 16:00 | ED GI ---
General Chief Complaint: Abdominal/GI Problems Stated Complaint: VOMITING SINCE KIDNEY REMOVAL T-2 Source of Information: Patient, Family Exam Limitations: No Limitations History of Present Illness Time Seen By Provider: 15:57 Initial Comments This 67-year-old white female presents with persistent vomiting one week following a left F recommend at by Dr. Mccray. Patient did well postoperatively until approximately 24 hours ago when she began having persistent vomiting. Patient has noted some erythema to her shayy over her anterior abdomen but denies other objective evidence of infection. She's had no associated fever. She denies significant abdominal pain. The patient has vomited bilious material without blood. Allergies and Home Medications Allergies Coded Allergies: phenazopyridine (Verified Allergy, Severe, GI UPSET, 06/05/16) sulfamethoxazole (Verified Allergy, Severe, BREATHING, 06/05/16) tolmetin (Verified Allergy, Severe, 06/05/16) trimethoprim (Verified Allergy, Severe, BREATHING, 06/05/16) benzonatate (Verified Allergy, Intermediate, RASH, 08/08/13) Dyspnea, wheezing diclofenac (Verified Allergy, Mild, GI UPSET, 06/05/16) hydrocodone (Unverified Allergy, Mild, GI UPSET, 06/05/16) indomethacin (Verified Allergy, Mild, 06/05/16) misoprostol (Verified Allergy, Mild, GI UPSET, 06/05/16) naproxen sodium (Unverified Allergy, Mild, SORES IN MOUTH AND NOSE, ) tolmetin sodium (Unverified Allergy, Unknown, 06/05/16) Uncoded Allergies: DARVOCET (Allergy, Unknown, 06/05/16) Home Medications Acetaminophen 650 Mg Tablet.er, 650-1,300 MG PO DAILY, (Reported) TAKES 1-2 OF A (650 MG) TABLET Albuterol Sulfate 8.5 Gm Hfa.aer.ad, 2 PUFF IH QID PRN for SHORTNESS OF BREATH, (Reported) Docusate Sodium 100 Mg Capsule, 100 MG PO HS, (Reported) Doxazosin Mesylate 8 Mg Tablet, 8 MG PO HS, (Reported) Fluticasone/Salmeterol 1 Each Blst.w.dev, 1 PUFF IH DAILY PRN for SHORTNESS OF BREATH, (Reported) Furosemide 40 Mg Tablet, 40 MG PO DAILY PRN for FLUID RETENTION, (Reported) Lactobacillus Rhamnosus GG 1 Each Capsule, 1 CAP PO HS, (Reported) Lisinopril/Hydrochlorothiazide 1 Each Tablet, 0.5 TAB PO DAILY, (Reported) Oxybutynin Chloride 10 Mg Tab.er.24, 10 MG PO DAILY PRN for BLADDER CONTROL , ( Reported) Pedi Mv No.79/Ferrous Fumarate 18 Mg Tab.chew, 18 MG PO DAILY, (Reported) Phenytoin Sodium Extended 100 Mg Capsule, 400 MG PO HS, (Reported) TAKES 4 (100 MG) CAPSULES Potassium Chloride 10 Meq Tablet.er, 10 MEQ PO DAILY PRN for WITH FUROSEMIDE, ( Reported) Rosuvastatin Calcium 10 Mg Tablet, 10 MG PO HS, (Reported) Vitamin B Complex 1 Each Capsule, 1 CAP PO DAILY, (Reported) Review of Systems Constitutional: No chills, No fever EENTM: No Blurred Vision, No Ear Pain Respiratory: Denies Cough, Denies Shortness of Air Cardiovascular: Denies Chest Pain Gastrointestinal: Denies Abdomen Distended, Denies Abdominal Pain, Denies Diarrhea, Denies Nausea, Denies Rectal Bleeding, Denies Vomiting Genitourinary: Denies Burning, Denies Drainage, Denies Frequency Musculoskeletal: No back pain Skin: No change in color, No rash Psychiatric/Neurological: No Symptoms Reported Endocrine: No Symptoms Reported Hematologic/Lymphatic: No Symptoms Reported Past Yuwnueb-Pywzhc-Qruzhe Hx Patient Social History Type Used: Cigarettes Former Smoker, Quit: Jun 04, 1988 Recent Foreign Travel: No Contact w/Someone Who Travel: No Recent Hopitalizations: No Immunizations Up To Date Tetanus Booster (TDap): More than 5yrs PED Vaccines UTD: Yes Date of Pneumonia Vaccine: Apr 16, 2013 Date of Influenza Vaccine: Apr 28, 2017 Seasonal Allergies Seasonal Allergies: Yes Surgeries History of Surgeries: Yes (KNEE SURGERY X3, L ROTATOR CUFF REPAIR, BREAST BX, KIDNEY STENTx5) Surgeries: Joint Replacement, Open Heart Surgery Respiratory History of Respiratory Disorde: No Respiratory Disorders: Pneumonia, Chronic Bronchitis Currently Using CPAP: No Currently Using BIPAP: No Cardiovascular History of Cardiac Disorders: Yes (open heart surg in 1969; VALVE 2010) Neurological History of Neurological Disord: Yes Neurological Disorders: Seizure Disorder Reproductive System Hx Reproductive Disorders: No Sexually Transmitted Disease: No 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 Genitourinary Genitourinary Disorders: Bladder Infection, Kidney Stones Gastrointestinal History of Gastrointestinal Di: Yes (ENLARGED LIVER) Gastrointestinal Disorders: Chronic Diarrhea Musculoskeletal History of Musculoskeletal Dis: Yes (OSTEOARTHRITIS) Musculoskeletal Disorders: Arthritis Endocrine History of Endocrine Disorders: No HEENT Loss of Vision: Bilateral Hearing Impairment: Hard of Hearing Cancer History of Cancer: No Psychosocial History of Psychiatric Problem: No Integumentary History of Skin or Integumenta: No Blood Transfusions History of Blood Disorders: Yes (ANEMIA) Adverse Reaction to a Blood Tr: No Reviewed Nursing Assessment Reviewed/Agree w Nursing PMH: Yes Family Medical History Family Medial History: Autoimmune disorder Cardiovascular disease 19 MOTHER Diabetes mellitus G8 BROTHER FH: lupus Physical Exam Vital Signs VS - Last 72 Hours, by Label 07/12/17 15:00 Temp 97.8 Pulse 74 Resp 16 B/P (MAP) 124/84 (97) Pulse Ox 92 O2 Delivery Room Air Capillary Refill : General Appearance: WD/WN, mild distress HEENT: normal ENT inspection Neck: normal inspection Respiratory: normal breath sounds Cardiovascular: regular rate, rhythm Gastrointestinal: non tender, soft, abnormal bowel sounds (hypoactive) Extremities: normal range of motion, non-tender, normal inspection Back: normal inspection, no CVA tenderness Neurologic/Psychiatric: no motor/sensory deficits, alert, normal mood/affect, oriented x 3 Skin: other (patient's incision demonstrates slight inflammation to the inferior half of her shayy.) Focused Exam Evaluation Lactate Level Laboratory Tests 07/12/17 15:50: Lactic Acid Level 1.33 Lactic Acid Level Laboratory Tests Test 07/12/17 15:50 Lactic Acid Level 1.33 MMOL/L (0.50-2.00) Progress/Results/Core Measures Results/Orders Lab Results Laboratory Tests Test 07/12/17 15:15 07/12/17 15:50 Range/Units White Blood Count 10.9 4.3-11.0 10^3/uL Red Blood Count 4.20 L 4.35-5.85 10^6/uL Hemoglobin 12.4 11.5-16.0 G/DL Hematocrit 37 35-52 % Mean Corpuscular Volume 88 80-99 FL Mean Corpuscular Hemoglobin 30 25-34 PG Mean Corpuscular Hemoglobin Concent 33 32-36 G/DL Red Cell Distribution Width 14.8 H 10.0-14.5 % Platelet Count 227 130-400 10^3/uL Mean Platelet Volume 9.1 7.4-10.4 FL Neutrophils (%) (Auto) 85 H 42-75 % Lymphocytes (%) (Auto) 8 L 12-44 % Monocytes (%) (Auto) 7 0-12 % Eosinophils (%) (Auto) 1 0-10 % Basophils (%) (Auto) 0 0-10 % Neutrophils # (Auto) 9.2 H 1.8-7.8 X 10^3 Lymphocytes # (Auto) 0.8 L 1.0-4.0 X 10^3 Monocytes # (Auto) 0.8 0.0-1.0 X 10^3 Eosinophils # (Auto) 0.1 0.0-0.3 10^3/uL Basophils # (Auto) 0.0 0.0-0.1 10^3/uL Neutrophils % (Manual) 84 % Lymphocytes % (Manual) 8 % Monocytes % (Manual) 8 % Band Neutrophils % Toxic Granulation 1+ Blood Morphology Comment NORMAL Sodium Level 141 135-145 MMOL/L Potassium Level 4.5 3.6-5.0 MMOL/L Chloride Level 97 L 98-107 MMOL/L Carbon Dioxide Level 28 21-32 MMOL/L Anion Gap 16 H 5-14 MMOL/L Blood Urea Nitrogen 16 7-18 MG/DL Creatinine 1.43 H 0.60-1.30 MG/DL Estimat Glomerular Filtration Rate 37 BUN/Creatinine Ratio 11 Glucose Level 135 H 70-105 MG/DL Calcium Level 9.6 8.5-10.1 MG/DL Total Bilirubin 0.4 0.1-1.0 MG/DL Aspartate Amino Transf (AST/SGOT) 20 5-34 U/L Alanine Aminotransferase (ALT/SGPT) 22 0-55 U/L Alkaline Phosphatase 197 H 40-136 U/L Total Protein 7.7 6.4-8.2 GM/DL Albumin 3.8 3.2-4.5 GM/DL Lactic Acid Level 1.33 0.50-2.00 MMOL/L My Orders Orders - HIMANSHU AVERY MD Ns Iv 1000 Ml (Sodium Chloride 0.9%) (07/12/17 15:30) Ondansetron Injection (Zofran Injectio (07/12/17 15:30) Ondansetron Injection (Zofran Injectio (07/12/17 15:25) Ns Iv 1000 Ml (Sodium Chloride 0.9%) (07/12/17 15:26) Cbc With Automated Diff (07/12/17 15:27) Comprehensive Metabolic Panel (07/12/17 15:27) Ua Culture If Indicated (07/12/17 15:27) Blood Culture (07/12/17 15:27) Lactic Acid Analyzer (07/12/17 15:27) Promethazine Injection (Phenergan Injec (07/12/17 15:45) Diphenhydramine Injection (Benadryl Inje (07/12/17 15:45) Mupirocin Ointment (Bactroban Ointment (07/12/17 15:49) Manual Differential (07/12/17 15:15) Ct Abdomen/Pelvis Wo (07/12/17 15:56) Haloperidol Injection (Haldol Injectio (07/12/17 17:45) Fentanyl Injection (Sublimaze Injection (07/12/17 17:45) Medications Given in ED Current Medications Medications Dose Ordered Sig/Joel Route Start Time Stop Time Status Last Admin Dose Admin Diphenhydramine HCl 25 mg ONCE ONCE IM 07/12/17 15:45 07/12/17 15:46 DC 07/12/17 15:46 25 MG Mupirocin 22 gm STK-MED ONCE .ROUTE 07/12/17 15:49 07/12/17 15:51 DC 07/12/17 15:50 22 GM Ondansetron HCl 4 mg ONCE ONCE IVP 07/12/17 15:30 07/12/17 15:31 DC 07/12/17 15:34 4 MG Promethazine HCl 25 mg ONCE ONCE IVP 07/12/17 15:45 07/12/17 15:46 DC 07/12/17 15:45 25 MG Vital Signs/I&O Vital Sign - Last 12Hours 07/12/17 15:00 Temp 97.8 Pulse 74 Resp 16 B/P (MAP) 124/84 (97) Pulse Ox 92 O2 Delivery Room Air Progress Note : Time: 17:35 Progress Note The patient's CT of the abdomen and pelvis demonstrated dilated loops of small bowel consistent with either ileus or small bowel obstruction. Treatment course despite attempts at relieving the patient's nausea with IV ondansetron and subsequently IV Phenergan with Benadryl the patient continued to vomit. accepted the patient in transfer. The patient was accepted by Dr. Gonzalez' s partner Dr. Wilkins. An attempt to make patient more comfortable during her transfer to gave him 5 mg of Haldol IM for her persistent vomiting and 50 g of fentanyl IV for her discomfort. Departure Impression Impression: Primary Impression: Persistent vomiting Additional Impression: Small bowel obstruction Disposition: 02 XFER SHT-TRM HOSP Condition: Unchanged Transfer Time Spoke to Accepting Phy: 17:38 Transfer Progress Notes Patient was accepted and transferred to to urology. Transfer Time: 17:39 Transfer Facility: Urolog Method of Transfer: EMS Departure-Patient Inst. Referrals: MINOR IBARRA DO (PCP/Family) Primary Care Physician HIMANSHU AVERY MD Jul 12, 2017 16:00
--- NOTE | 2017-07-12 16:29 | Diagnostic Imaging Report ---
PROCEDURE: CT abdomen and pelvis without contrast. TECHNIQUE: Multiple contiguous axial images were obtained through the abdomen and pelvis without the use of intravenous contrast. INDICATION: Vomiting status post left nephrectomy. COMPARISON: None available. FINDINGS: Evaluation of the abdominal viscera is mildly limited without contrast. Lower chest: The lung bases are clear. No pericardial or pleural effusion. Peritoneum: No free peritoneal air. Trace free pelvic fluid. Liver and biliary system: Unenhanced liver is normal. The gallbladder is normal. No biliary duct dilation. Spleen and Pancreas: Spleen is normal. Unenhanced pancreas is grossly normal. Adrenals: Normal. tract: Status post left nephrectomy. There is a small amount of free-flowing fluid within the nephrectomy bed which is likely postoperative in nature. This has maximal thickness of 1.6 cm and maximal transverse with 3.3 cm. No loculated postoperative fluid collection. No right renal mass or obstructive uropathy. Urinary bladder is decompressed, limiting evaluation. Patient is status post hysterectomy. GI tract: Stomach is decompressed. Multiple small bowel loops in the left upper quadrant are fluid-filled and on the upper limits of normal in size, measuring up to 2.9 cm. There is no transition point to indicate a bowel obstruction. The more distal small bowel loops are incompletely distended. The majority of the distal colon is decompressed. No pericolonic inflammatory changes. The appendix is normal. Vasculature and Lymph nodes: Normal caliber aorta. No abdominal or pelvic lymphadenopathy. Musculoskeletal: No concerning osseous lesion. Laparotomy defect in the midline of the abdomen. No subcutaneous fluid collection to indicate abscess. IMPRESSION: 1. Status post left nephrectomy with a small amount of postoperative free flowing fluid in the left nephrectomy bed. No loculated fluid collection to indicate abscess. 2. Multiple fluid-filled and borderline dilated loops of small bowel in the left hemiabdomen are likely due to postoperative ileus as there is no focal transition point. The stomach is moderately distended with fluid. Dictated by: Dictated on workstation # [id number]
[2017-07-12] MEDS ORDERED: fentaNYL INJECTION 100 MCG/2 ML AMP IVP ONE (17:45)
[2017-07-12] MEDS ORDERED: HALOPERIDOL 5 MG/ML (HALDOL) AMP IM ONE ×2 (17:45→20:00)
[2017-07-12] MEDS ORDERED: NS 1000 ML IV BAG IV ONE (18:00)
[2017-07-12 19:34] VITALS: BP 137/65
[2017-07-12] MEDS ORDERED: HALOPERIDOL 5 MG/ML (HALDOL) AMP ONE (19:46)
== END 2017-07-12 19:34 | disposition short-term general hospital (02) ==
LOC: EDUNIT# 14:52 → ER 14:53
DX: K56.609 Unspecified intestinal obstruction, unspecified as to partial versus complete obstruction (principal); R11.10 Vomiting, unspecified; Z87.42 Personal history of other diseases of the female genital tract; Z90.710 Acquired absence of both cervix and uterus; Z87.442 Personal history of urinary calculi; Z87.01 Personal history of pneumonia (recurrent); Z87.891 Personal history of nicotine dependence
CPT/HCPCS: 36415; 74176; 80053; 83605; 85007; 85025; 85027; 87040

== ENCOUNTER 2019-01-24 07:46 | Emergency (ER) | payer MEDICARE ==
[~2019-01-24] VITALS: Ht 154.9 cm; Wt 97.5 kg
[~2019-01-24 07:46] MED LIST changes: -OXYC-197 PO; +OXYC1TAB87 PO; -ROSU10TA PO; +ROSU10TA22 PO; -ROSU10TA24 PO; +ROSU10TA27 PO
--- NOTE | 2019-01-24 08:11 | ED Integumentary General ---
General Stated Complaint: RASH ON R ARM Source: patient Exam Limitations: no limitations History of Present Illness Date Seen by Provider: Jan 24, 2019 Time Seen by Provider: 07:52 Initial Comments The patient presents to ER by private conveyance with chief complaint of a rash started up the last 2 days on her right forearm and hand. She has been using Robin adryl with no benefit. She says she was working in the yard around [place] and thought that it was contact dermatitis. She's not having a headache or any neurologic symptoms. She describes it as burning without any itching. She never had chickenpox as a child but a few years ago her had shingles. Allergies and Home Medications Allergies Coded Allergies: phenazopyridine (Verified Allergy, Severe, GI UPSET, 06/05/16) sulfamethoxazole (Verified Allergy, Severe, BREATHING, 06/05/16) tolmetin (Verified Allergy, Severe, 06/05/16) trimethoprim (Verified Allergy, Severe, BREATHING, 06/05/16) benzonatate (Verified Allergy, Intermediate, RASH, 08/08/13) Dyspnea, wheezing diclofenac (Verified Allergy, Mild, GI UPSET, 06/05/16) hydrocodone (Unverified Allergy, Mild, GI UPSET, 06/05/16) indomethacin (Verified Allergy, Mild, 06/05/16) misoprostol (Verified Allergy, Mild, GI UPSET, 06/05/16) naproxen sodium (Unverified Allergy, Mild, SORES IN MOUTH AND NOSE, 06/05/16) tolmetin sodium (Unverified Allergy, Unknown, 06/05/16) Uncoded Allergies: DARVOCET (Allergy, Unknown, 06/05/16) Home Medications Acetaminophen 650 Mg Tablet.er, 650-1,300 MG PO DAILY, (Reported) TAKES 1-2 OF A (650 MG) TABLET Albuterol Sulfate 8.5 Gm Hfa.aer.ad, 2 PUFF IH QID PRN for SHORTNESS OF BREATH, (Reported) Docusate Sodium 100 Mg Capsule, 100 MG PO HS, (Reported) Doxazosin Mesylate 8 Mg Tablet, 8 MG PO HS, (Reported) Fluticasone/Salmeterol 1 Each Blst.w.dev, 1 PUFF IH DAILY PRN for SHORTNESS OF BREATH, (Reported) Furosemide 40 Mg Tablet, 40 MG PO DAILY PRN for FLUID RETENTION, (Reported) Lactobacillus Rhamnosus GG 1 Each Capsule, 1 CAP PO HS, (Reported) Lisinopril/Hydrochlorothiazide 1 Each Tablet, 0.5 TAB PO DAILY, (Reported) Oxybutynin Chloride 10 Mg Tab.er.24, 10 MG PO DAILY PRN for BLADDER CONTROL , (Reported) Pedi Mv No.79/Ferrous Fumarate 18 Mg Tab.chew, 18 MG PO DAILY, (Reported) Phenytoin Sodium Extended 100 Mg Capsule, 400 MG PO HS, (Reported) TAKES 4 (100 MG) CAPSULES Potassium Chloride 10 Meq Tablet.er, 10 MEQ PO DAILY PRN for WITH FUROSEMIDE, (Reported) Rosuvastatin Calcium 10 Mg Tablet, 10 MG PO HS, (Reported) Vitamin B Complex 1 Each Capsule, 1 CAP PO DAILY, (Reported) Patient Home Medication List Home Medication List Reviewed: Yes Review of Systems Review of Systems Constitutional: No chills, No diaphoresis EENTM: No ear discharge, No ear pain Respiratory: No cough, No dyspnea on exertion Cardiovascular: No chest pain, No palpitations Gastrointestinal: No abdominal pain, No nausea Genitourinary: No discharge, No dysuria Musculoskeletal: No gout, No joint swelling Past Amyrbii-Lextqq-Xydixh Hx Patient Social History Alcohol Use: Denies Use Recreational Drug Use: No Smoking Status: Former Smoker Type Used: Cigarettes Former Smoker, Quit: Jun 04, 1988 2nd Hand Smoke Exposure: No Recent Foreign Travel: No Contact w/Someone Who Travel: No Recent Hopitalizations: No Immunizations Up To Date Tetanus Booster (TDap): More than 5yrs PED Vaccines UTD: Yes Date of Pneumonia Vaccine: Apr 16, 2013 Date of Influenza Vaccine: Apr 28, 2017 Seasonal Allergies Seasonal Allergies: Yes Past Medical History Surgeries: Yes (KNEE SURGERY X3, L ROTATOR CUFF REPAIR, BREAST BX, KIDNEY STENTx5) Joint Replacement, Open Heart Surgery Respiratory: No Pneumonia, Chronic Bronchitis Currently Using CPAP: No Currently Using BIPAP: No Cardiac: Yes (open heart surg in 1969; VALVE 2010) Neurological: Yes Seizure Disorder 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 Sexually Transmitted Disease: No HIV/AIDS: No Bladder Infection, Kidney Stones Gastrointestinal: Yes (ENLARGED LIVER) Chronic Diarrhea Musculoskeletal: Yes (OSTEOARTHRITIS) Arthritis Endocrine: No Loss of Vision: Bilateral Hearing Impairment: Hard of Hearing Cancer: No Psychosocial: No Integumentary: No Blood Disorders: Yes (ANEMIA) Adverse Reaction/Blood Tranf: No Family Medical History Autoimmune disorder Cardiovascular disease 19 MOTHER Diabetes mellitus G8 BROTHER FH: lupus Physical Exam Vital Signs Capillary Refill : General Appearance: WD/WN, mild distress HEENT: PERRL/EOMI, pharynx normal Neck: full range of motion, normal inspection Cardiovascular: normal peripheral pulses, regular rate, rhythm Respiratory: no respiratory distress, no accessory muscle use Neurologic/Psychiatric: no motor/sensory deficits, alert, normal mood/affect, oriented x 3 Skin: rash (whitish fluid filled vesicle on the fingers home and a rash this er ythematous of consistent with contact dermatitis up her right forearm.) Progress/Results/Core Measures Results/Orders My Orders Orders - MADISON ELLIOTT Fentanyl Injection (Sublimaze Injection (01/24/19 08:15) Progress Progress Note : Time: 08:09 Progress Note The hand looks to be herpes zoster however forearm first glance seem to be more like contact dermatitis. Is possible there could be 2 things going on for the same time. Plan to stay away from steroids at this time and put her on acyclovir, gabapentin and give her some pain medicine. Departure Impression Primary Impression: Herpes zoster Qualified Codes: B02.9 - Zoster without complications Disposition: 01 HOME, SELF-CARE Condition: Stable Departure-Patient Inst. Decision time for Depature: 08:12 Referrals: MINOR IBARRA DO (PCP/Family) Primary Care Physician Patient Instructions: Shingles (DC) Add. Discharge Instructions: Capsaicin oil topically for the burning. Use the gabapentin 100 mg 3 times a day to help control the pain. Acyclovir 800 mg 3 times a day. Percocet 1 tablet every 6 hours as needed for breakthrough pain. Tylenol 650 mg every 6 hours as needed. Follow-up with primary care as needed. Scripts Acyclovir (Acyclovir) 800 Mg Tablet 800 MG PO TID for 7 Days, #21 TAB 0 Refills Prov: MADISON ELLIOTT 01/24/19 Gabapentin (Gabapentin) 100 Mg Capsule 100 MG PO Q8H for Neuropathic pain for 7 Days, #21 CAP 0 Refills Prov: MADISON ELLIOTT 01/24/19 Oxycodone HCl/Acetaminophen (Percocet 5-325 mg Tablet) 1 Each Tablet 1 TAB PO Q6H PRN for BREAKTHROUGH PAIN MDD 6 TABS for 7 Days, #14 TAB 0 Refills Prov: MADISON ELLIOTT 01/24/19 MADISON ELLIOTT Jan 24, 2019 08:11
[2019-01-24] MEDS ORDERED: fentaNYL INJECTION 100 MCG/2 ML AMP IM ONE (08:15)
[2019-01-24] MEDS ORDERED: OXYC1TAB87 PO (08:16)
[2019-01-24] MEDS ORDERED: ACYC800T PO ×2 (08:16→08:20)
[2019-01-24] MEDS ORDERED: GABA-486 PO ×2 (08:16→08:20)
[2019-01-24 08:43] VITALS: BP 124/73
== END 2019-01-24 08:43 | disposition home or self-care (01) ==
LOC: EDUNIT# 07:46 → ER 07:48
DX: B02.9 Zoster without complications (principal); J42 Unspecified chronic bronchitis; G40.909 Epilepsy, unspecified, not intractable, without status epilepticus; Z87.442 Personal history of urinary calculi; Z90.710 Acquired absence of both cervix and uterus; Z87.01 Personal history of pneumonia (recurrent); Z88.8 Allergy status to other drugs, medicaments and biological substances; Z88.2 Allergy status to sulfonamides; Z88.1 Allergy status to other antibiotic agents; Z88.5 Allergy status to narcotic agent; Z79.51 Long term (current) use of inhaled steroids; Z87.891 Personal history of nicotine dependence; Z82.49 Family history of ischemic heart disease and other diseases of the circulatory system
CPT/HCPCS: 99284